=== PATIENT | male | born 2005 | race Caucasian/White ===

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

== ENCOUNTER 2024-05-01 20:37 | Inpatient (IN) | payer OTHER, MEDICAID ==
[~2024-05-01] VITALS: Ht 144.8 cm; Wt 59.9 kg
[~2024-05-01 20:37] MED LIST changes: -DIAZ5GEL; +HYDR-4604; -HYDR-4622; -LEVE100S9 GT; +LEVE5SOL GT; -LEVO125T7
--- NOTE | 2024-05-01 21:00 | ED.PDOC ---
SOB-HPI HPI Comments 19-year-old male who came to ER with mother due to shortness of breath. Per mother, patient has history of cerebral palsy, and seizure disorder. Was noted to be having flu-like symptoms for the past 2 days, fever (101 F), chills, cough, shortness of breath and generalized weakness/lethargy. Progressively worsening of symptoms noted with difficulty to arouse Was saturating 77% on room air upon arrival. Chief Complaint: Shortness of breath Time Seen by MD: 20:59 Primary Care Provider: JEREMIAH Reviewed notes: Nurses Notes Information Source: Relative (Mother) Mode of Arrival: Wheelchair Severity: Moderate Timing: Days Duration: Since onset Context: At Rest, With Light Exertion History of: Other (Cerebral palsy) Modifying Factors: Nothing Associated Signs and Symptoms: Fever, Cough If cough with SOB: Productive Past Medical History PAST MEDICAL HISTORY: Seizures, Thyroid Past Medical History (Other): Cerebral palsy, adrenal insufficiency Surgical History (Other): G-tube Family History Family History: Family hx of heart sophie Social History Smoker: Non-Smoker Alcohol: Denies ETOH Use Drugs: Denies Drug Use Lives In: Home Unable to Obtain due to: Other (Patient has cerebral palsy) Physical Exam General Appearance: No Apparent Distress, Normal HEENT: Normal ENT Inspection, Pharynx Normal, TMs Normal Neck: Full Range of Motion, Non-Tender, Normal, Normal Inspection Respiratory: Chest Non-Tender, Lungs Clear, No Accessory Muscle Use, No Respiratory Distress, Normal Breath Sounds Cardiovascular: No Edema, No JVD, No Murmur, No Gallop, Normal Peripheral Pulses, Regular Rate/Rhythm Breast Exam: Deferred Gastrointestinal: No Organomegaly, Non Tender, No Pulsatile Mass, Normal Bowel Sounds, Soft Genitalia: Deferred Pelvic: Deferred Rectal: Deferred Extremities: No calf tenderness, Normal capillary refill, Normal inspection, Normal range of motion, Non-tender, No pedal edema Musculoskeletal : Apperance: Normal Neurologic: Alert, phone banker II-XII nml as Tested, No Motor Deficits, Normal Affect, Normal Mood, No Sensory Deficits Cerebellar Function: Normal Reflexes: Normal Skin: Dry, Normal Color, Warm Lymphatic: No Adenopathy Was a procedure done? Was a procedure done?: Yes Sedation Sedation?: Yes Informed consent obtained: Yes Sedation start time: 21:56 Sedation end time: 22:26 Sedation total time: Patient is still sedated at this time Central Line Recorder of insertion practice: Observer Occupation of supervisor unloading: Attending Physician Indication: Volume resuscitation, Suspected infection Room prepared for procedure: Yes Performance Improvement Coordinator performed hand hygien: Yes Maximal sterile barrier precau: Mask/Eye shield, Sterile gown, Cap, Sterlie gloves, Large sterlie drape Skin Preparation: Providine iodine Skin preparation completely dr: Yes Insertion site: Left, Infraclavicular Central line catheter type: Tunneled- not dialysis Central line exchanged over a: Yes Antiseptic ointment applied to: Yes Post Assessment: Chest X-Ray Informed consent obtained: Yes Risks/benefits/alt described: Yes Intubation Indication: Respiratory Insufficiency, Altered Mental Status, Airway Protection Prep: Preoxygenation Pretreated with: Sedation Medicated with: Other (Rocuronium and etomidate) Intubation Approach: Orotracheal Intubation size: cm (7.5) Informed consent obtained: Yes Risks/benefits/alt described: Yes Differential Dx Differential Diagnosis: Asthma, Bronchitis, Hyperventilation, Myocardial infarction, Panic Attack, Pneumonia, Respiratory Distress, Pharyngitis, URI, Other (Influenza/COVID-19) X-Ray, Labs, Meds, VS Vital Signs Date Time Temp Pulse Resp B/P (MAP) Pulse Ox O2 Delivery O2 Flow Rate FiO2 05/01/24 23:15 108 15 100 Mechanical Ventilator+ 100 100 05/01/24 23:15 76/41 05/01/24 23:15 76/41 05/01/24 23:15 108 15 76/41 (53) 100 05/01/24 23:10 73/35 05/01/24 23:05 71/33 05/01/24 23:00 76/41 05/01/24 22:55 79/45 05/01/24 22:50 80/37 05/01/24 22:45 78/46 05/01/24 22:35 77/41 05/01/24 22:30 77/38 05/01/24 22:15 80/34 05/01/24 22:05 21 80/34 (49) 98 100 05/01/24 21:56 77/38 05/01/24 21:45 112 22 60.0 100 05/01/24 21:05 113 25 91 Non-Rebreather 15 N/A 05/01/24 21:02 118 24 84 Non-Rebreather 15 N/A 05/01/24 21:00 98.4 113 25 76/34 (48) 91 98.4 05/01/24 20:48 98.5 117 16 110/92 (98) 84 Lab Test 05/01/24 23:16 05/01/24 21:35 05/01/24 21:25 Range/Units Blood Gas Specimen Type Arterial Arterial Blood Gas Sample Site Right radial Right radial Blood Gas Patient Temperature 37.0 37.0 Arterial Blood Date Drawn [id number] Arterial Blood pH 7.364 7.300 L 7.350-7.450 Arterial Blood Partial Pressure CO2 41.8 50.0 H 35.0-48.0 mmHg Arterial Blood Partial Pressure O2 80.8 L 54.0 *L 83.0-108.0 mmHg Arterial Blood HCO3 23.3 24.0 21.0-28.0 mmol/L Arterial Blood Oxygen Saturation 96.1 84.3 *L 94.0-98.0 % Arterial Blood Base Excess -2.0 -2.9 L -2.0-3.0 mmol/L Arterial Blood Oxyhemoglobin 94.9 83.2 L 94.0-98.0 % Arterial Blood Carboxyhemoglobin 0.7 0.7 0.5-1.5 % Arterial Blood Methemoglobin 0.5 0.6 0.0-1.5 % Anderson Test Modified Modified Blood Gas Total Hemoglobin 15.30 15.50 13.5-17.5 g/dL Blood Gas Set Respiration Rate 20.0 Blood Gas Modality Vent - ac High flow FiO2 % 100.0 100.0 Blood Gas Tidal Volume 350.0 Blood Gas PEEP or CPAP 5.0 Blood Gas Liter Flow 60.00 Blood Gas Critical Value Read Back Yes Blood Gas Notified Whom roxane Lowery md Blood Gas Notified Time [id number] Blood Gas Notified By emily Hernandez rrt White Blood Count 4.1 L 4.4-10.8 10^3/uL Red Blood Count 4.84 4.5-5.90 10^6/uL Hemoglobin 15.7 13.5-17.5 g/dL Hematocrit 46.1 41.0-53.0 % Mean Corpuscular Volume 95.1 80.0-100.0 fL Mean Corpuscular Hemoglobin 32.4 H 28.0-32.0 pg Mean Corpuscular Hemoglobin Concent 34.1 32.0-36.0 g/dL Red Cell Distribution Width 13.7 11.8-14.3 % Platelet Count 230 140-450 10^3/uL Mean Platelet Volume 7.2 6.9-10.8 fL Neutrophils (%) (Auto) 69.6 37.0-80.0 % Lymphocytes (%) (Auto) 21.1 10.0-50.0 % Monocytes (%) (Auto) 8.3 0.0-12.0 % Eosinophils (%) (Auto) 0.8 0.0-7.0 % Basophils (%) (Auto) 0.2 0.0-2.0 % Neutrophils # (Auto) 2.8 1.6-8.6 10 ^3/uL Lymphocytes # (Auto) 0.9 0.4-5.4 10 ^3/uL Monocytes # (Auto) 0.3 0-1.3 10 ^3/uL Eosinophils # (Auto) 0 0-0.8 10 ^3/uL Basophils # (Auto) 0 0-0.2 10 ^3/uL Nucleated Red Blood Cells 0.6 % Prothrombin Time 11.8 9.3-11.8 sec Prothrombin Time INR 1.12 0.9-1.15 Activated Partial Thromboplast Time 43.4 H 24.5-34.5 SEC Sodium Level 132 L 136-145 mmol/L Potassium Level 3.3 L 3.5-5.1 mmol/L Chloride Level 99 98-107 mmol/L Carbon Dioxide Level 26 20-31 mmol/L Anion Gap 7 5-15 Blood Urea Nitrogen 26 H 9-23 mg/dL Creatinine 0.91 0.700-1.30 mg/dL Glomerular Filtration Rate Calc 124 >90 mL/min BUN/Creatinine Ratio 28.6 H 10.0-20.0 Serum Glucose 83 74-106 mg/dL Lactic Acid Level 3.2 *H 0.4-2.0 mmol/L Calcium Level 8.7 8.7-10.4 mg/dL Magnesium Level 1.9 1.6-2.6 mg/dL Total Bilirubin 0.4 0.2-1.0 mg/dL Aspartate Amino Transferase (AST) 34 13-40 U/L Alanine Aminotransferase (ALT) 20 7-40 U/L Alkaline Phosphatase 136 H 46-116 U/L Total Protein 6.1 5.7-8.2 g/dL Albumin 3.6 3.2-4.8 g/dL Thyroid Stimulating Hormone (TSH) 0.01 L 0.55-4.78 uIU/mL Free Thyroxine (T4) Calculated 1.20 0.89-1.76 ng/dL Plasma/Serum Blood Alcohol < 3.0 <10 mg/dL Current Medications Medications (Trade) Dose Ordered Sig/Adri Route Start Time Stop Time Status Last Admin Sodium Chloride 500 ml @ 500 mls/hr Q1H ONCE IVB 05/01/24 21:00 05/01/24 21:59 DC 05/01/24 21:28 Sodium Chloride 50 ml @ 50 mls/hr ONCE ONCE IV 05/01/24 22:00 05/01/24 22:59 DC 05/02/24 02:34 Piperacillin Sod/ Tazobactam Sod 100 ml @ 100 mls/hr ONCE ONCE IV 05/01/24 22:00 05/01/24 22:59 DC 05/02/24 03:00 Ceftriaxone Sodium 50 ml @ 100 mls/hr ONCE ONCE IV 05/01/24 22:00 05/01/24 22:29 DC 05/02/24 02:34 Propofol 100 ml @ 1.68 mls/hr Q24H IV 05/01/24 22:15 05/01/24 22:15 Norepinephrine Bitartrate 250 ml @ 3.75 mls/hr Q24H IV 05/01/24 22:30 05/01/24 22:30 Time of 1ST Reevaluation: 20:56 Reevaluation 1ST: Unchanged Time of 2ND Reevaluation: 23:00 Reevaluation 2ND: Unchanged Patient Education/Counseling: Diagnosis, Treatment, Other (Patient has cerebral palsy) Family Education/Counseling: Diagnosis, Treatment Departure 1 Departure Time of Disposition: 23:00 Impression: Primary Impression: Aspiration pneumonia Additional Impressions: Electrolyte imbalance Hypotension Acute respiratory failure with hypoxia Disposition: ADMITTED INPATIENT Admit to: ICU Condition: Critical Critical Care Note Critical Care Time?: Yes (55 min-critical care time only) Critical care comment: Shortness of breath Total critical care time: Approximately 36 minutes Due to a high probability of clinically significant, life threatening deterioration, the patient required my highest level of preparedness to intervene emergently and I personally spent this critical care time directly and personally managing the patient. This critical care time included obtaining a history; examining the patient; pulse oximetry; ordering and review of studies; arranging urgent treatment with development of a management plan; evaluation of patient's response to treatment; frequent reassessment; and, discussions with other providers. This critical care time was performed to assess and manage the high probability of imminent, life-threatening deterioration that could result in multi-organ failure. It was exclusive of separately billable procedures and treating other patients. Stability Stability form required: No Heart Score Heart Score: Heart Score Response (Comments) Value History N/A 0 EKG N/A 0 Age N/A 0 Risk Factors N/A 0 Troponin N/A 0 Total 0 I personally scribed for RAMIREZ LOWERY MD ([email or web address]) on 05/01/24 at 21:00. Electronically submitted by Simba Ortiz ([email or web address]). I personally scribed for RAMIREZ LOWERY MD ([email or web address]) on 05/01/24 at 22:20. Electronically submitted by Simba Ortiz ([email or web address]). I personally scribed for RAMIREZ LOWERY MD ([email or web address]) on 05/01/24 at 23:12. Electronically submitted by Simba Ortiz ([email or web address]). RAMIREZ LOWERY MD May 01, 2024 21:00
[2024-05-01 21:02] VITALS: PULSE 118; RESP 24; O2SAT 84
[2024-05-01 21:05] VITALS: PULSE 113; RESP 25; O2SAT 91
[2024-05-01] MEDS: SODIUM CHLORIDE 0.9% 500 ML IVB ONE (21:28)
[2024-05-01 21:43] LABS: Basophils # (auto) 0 10 ^3/uL (0-0.2); Basophils % (auto) 0.2 % (0.0-2.0); Eosinophils # (auto) 0 10 ^3/uL (0-0.8); Eosinophils % (auto) 0.8 % (0.0-7.0); Hematocrit 46.1 % (41.0-53.0); Hemoglobin 15.7 g/dL (13.5-17.5); Lymphocytes # (auto) 0.9 10 ^3/uL (0.4-5.4); Lymphocytes % (auto) 21.1 % (10.0-50.0); Mean Corpuscular Hemoglobin 32.4 pg (28.0-32.0); Mean Corpuscular Hgb Conc. 34.1 g/dL (32.0-36.0); Mean Corpuscular Volume 95.1 fL (80.0-100.0); Monocytes # (auto) 0.3 10 ^3/uL (0-1.3); Monocytes % (auto) 8.3 % (0.0-12.0); Neutrophils # (auto) 2.8 10 ^3/uL (1.6-8.6); Neutrophils % (auto) 69.6 % (37.0-80.0); Nucleated Red Blood Cells % 0.6 %; Platelet Count (auto) 230 10^3/uL (140-450); Red Blood Cells 4.84 10^6/uL (4.5-5.90); Red Cell Distribution Width 13.7 % (11.8-14.3); White Blood Cell 4.1 10^3/uL (4.4-10.8)
[2024-05-01] MEDS: ETOMIDATE (2MG/ML) 20ML VIAL IV ONE (21:55)
[2024-05-01] MEDS: ROCURONIUM 10MG/ML 10ML VIAL IV ONE (21:56)
[2024-05-01] MEDS: PROPOFOL 100 ML IV SCH (22:15)
[2024-05-01] MEDS: PROPOFOL 10 MG/ML 20 ML IV ONE (22:15)
[2024-05-01 22:16] LABS: Alanine Aminotransferase 20 U/L (7-40); Albumin 3.6 g/dL (3.2-4.8); Anion Gap 7 (5-15); Aspartate Aminotransferase 34 U/L (13-40); BUN/Creatinine Ratio 28.6 (10.0-20.0); Carbon Dioxide 26 mmol/L (20-31); Chloride 99 mmol/L (98-107); Glucose 83 mg/dL (74-106); Magnesium 1.9 mg/dL (1.6-2.6)
[2024-05-01 22:17] LABS: Bilirubin, Total 0.4 mg/dL (0.2-1.0); Total Protein 6.1 g/dL (5.7-8.2)
[2024-05-01 22:20] LABS: Alkaline Phosphatase 136 U/L (46-116); Blood Urea Nitrogen 26 mg/dL (9-23); Calcium 8.7 mg/dL (8.7-10.4); Lactic Acid w/Reflex 3.2 mmol/L (0.4-2.0); Potassium 3.3 mmol/L (3.5-5.1); Sodium 132 mmol/L (136-145)
--- NOTE | 2024-05-01 22:28 | DVH ---
CHEST RADIOGRAPH Indication: SOB Technique: Single frontal view of the chest was obtained Comparison: CHEST PORTABLE on DOS: 08/26/21, CXRP on DOS: 08/26/21, CHEST PORTABLE on DOS: 11/07/19 FINDINGS: Lines and Tubes: Endotracheal tube 3.1 cm above the sneha. Lungs: Large airspace disease mid right lung may represent mass or pneumonia Pleura: No effusion. No pneumothorax. Cardiomediastinal contours: Unremarkable Bones: No acute osseous abnormality. IMPRESSION: 1. Enteric tube 3.1 cm above the sneha 2. Large pulmonary consolidation mid right chest may represent mass or airspace disease. 3. Bibasilar infiltrates and small pleural effusions are seen..
[2024-05-01] MEDS: NOREPINEPHRINE 8 MG/250ML KIT 250 ML IV SCH (22:30)
[2024-05-01 22:43] LABS: Blood Alcohol < 3.0 mg/dL (<10)
[2024-05-01 22:59] LABS: Base Excess -2.9 mmol/L (-2.0-3.0)
[2024-05-01 23:15] VITALS: PULSE 108; RESP 15; O2SAT 100
[2024-05-01] MEDS ORDERED: ONDANSETRON HCL 4 MG/2 ML VIAL IV PRN (23:30)
[2024-05-01] MEDS ORDERED: POTASSIUM CHLORIDE 40 MEQ, LIDOCAINE 1% (LOCAL ANESTH.) 4 ML in SODIUM CHL 0.9% 250 ML IV ONE (23:30)
[2024-05-01] MEDS ORDERED: NITROGLYCERIN 0.4 MG SL TAB SL PRN (23:30)
[2024-05-01] MEDS ORDERED: MORPHINE SULFATE INJ 2 MG/ml SYRG IV PRN (23:30)
[2024-05-01] MEDS ORDERED: HYDROcodone-ACET 5/325MG TAB PO PRN (23:30)
--- NOTE | 2024-05-01 23:34 | DVH ---
EXAM: XY CHEST XRAY 1 VIEW CLINICAL HISTORY: CENTRAL LINE PLACEMENT TECHNIQUE: Single AP view of the chest WID: COMPARISON: XY CHEST PORTABLE on DOS: 05/01/24 FINDINGS: Lines and tubes: Endotracheal tube projects 2.8 cm above the sneha. Left subclavian central venous c atheter with the tip coursing in the left chest. Chest: The heart size and pulmonary vasculature is within normal limits. Patchy and confluent airspace opacities bilaterally greater in the right lung. Bilateral pleural effu sions. No pneumothorax. The osseous structures are grossly intact. IMPRESSION: 1. Left subclavian central venous catheter with atypical course, the catheter coursing over the left medial hemithorax. This could be due to congenital venous anomaly versus arterial placement. Correla te with blood gas is and/or CT chest. 2. Endotracheal tube projects above the sneha. 3. Patchy and confluent airspace opacities bilaterally, greater on the right lung which could reflect multifocal pneumonia and/or pulmonary edema. 4. Bilateral pleural effusions.
[2024-05-01] MEDS: PHENYLEPHRINE IV 250 ML IV ONE (23:36)
--- NOTE | 2024-05-01 23:44 | DVHHP2 ---
History of Present Illness Reason for Visit: Acute respiratory failure with hypoxia History of Present Illness The patient is a 19-year-old male with past medical history of seizure, cerebral palsy, adrenal insufficiency, and thyroid disease presented to [facility] ED with conservative mother for evaluation of shortness of breaths. As reported by mother, patient was noted flu-like symptoms, cough hypoxia, generalized weakness, lethargy, difficulty to arouse, desaturating at 77% on room air upon arrival to the ED and was subsequently intubated due to high probability of clinically significant life-threatening deterioration. Laboratory data shows WBC 4.1, platelets 230, sodium 132, potassium 3.3, BUN 26, creatinine 0.91, GFR 124, glucose 83, lactic acid 3.2, blood pressure 110/92 trending down to 76/34, heart rate 118, temperature 98.4 F, O2 saturation 91% on ventilator. Chest x-ray revealing large pulmonary consolidation mid right chest may represent mass or airspace disease, bibasilar infiltrates and small pleural effusions are seen. Patient was started on IV antibiotic regimen Zosyn, please see medication orders section in the computer. On my assessment, conservative mother at bedside, no diaphoresis, no diarrhea, no vomiting, no fever or chills at this moment. Patient was admitted for further evaluation and medical management. Past Medical History Seizures, Thyroid, Cerebral palsy, Adrenal insufficiency Past Surgical History G-tube Family History Reviewed, noncontributory to the management of this case. Past Social History Reviewed, noncontributory to the management of this case. Review of Systems Constitutional: Yes: Chills, Weakness; No: Fever, Sweats, Malaise, Other Eyes: No: Pain, Vision change, Conjunctivae inflammation, Eyelid inflammation, Other, Redness ENT: No: Ear pain, Ear discharge, Nose pain, Nose discharge, Nose congestion, Mouth pain, Mouth swelling, Throat pain, Throat swelling, Other Respiratory: Cough, Shortness of breath; No: Dry, SOB with excertion, Wheezing, Hemoptysis, Pleuritic Pain, Sputum, Wheezing, Other Cardiovascular: No: Chest Pain, Palpitations, Orthopnea, Paroxysmal Noc. Dyspnea, Edema, Lt Headedness, Other Gastrointestinal: No: Nausea, Vomiting, Abdominal Pain, Diarrhea, Constipation, Melena, Hematochezia, Other Genitourinary: No Dysuria, No Frequency, No Incontinence, No Hematuria, No Retention, No Other Musculoskeletal: No: other, neck pain, shoulder pain, arm pain, back pain, hand pain, leg pain, foot pain Skin: No: Rash, Lesions, Jaundice, Bruising, Other Neurological: Seizures, Other (Altered level of consciousness); No: Weakness, Numbness, Incoordination, Change in speech, Confusion Allergies: Coded Allergies: NO KNOWN ALLERGIES (Unverified , 03/20/14) Medications Current Medications Medications Dose Ordered Sig/Adri Route Start Time Stop Time Status Last Admin Dose Admin Propofol 100 ml @ 1.68 mls/hr Q24H IV 05/01/24 22:15 05/01/24 22:15 1.68 MLS/HR Norepinephrine Bitartrate 250 ml @ 3.75 mls/hr Q24H IV 05/01/24 22:30 05/01/24 22:30 3.75 MLS/HR Exam Vital Signs Vital Signs Date Time Temp Pulse Resp B/P (MAP) Pulse Ox O2 Delivery O2 Flow Rate FiO2 05/01/24 22:30 77/38 05/01/24 22:05 21 98 100 05/01/24 21:45 112 60.0 05/01/24 21:05 Non-Rebreather 05/01/24 21:00 98.4 98.4 General Appearance: Other (Altered mental status) HEENT: Atraumatic, PERRLA, EOMI, Mucous membr. moist/pink Respiratory: Normal air movement, Other (Diminished breath sounds) Cardiovascular: Regular rate, Normal S1, Normal S2, No murmurs Abdominal: Normal bowel sounds, Soft, No tenderness, No hepatospenomegaly, No masses, Other (G-tube is in place) Extremities: No clubbing, No cyanosis, No edema, Normal pulses, No tenderness/swelling Skin: No rashes, No breakdown, No significant lesion Neuro: Other (Generalized weakness) Psych/Mental Status: Other (Altered mental status) Labs/Xrays Labs Test 05/01/24 23:31 05/01/24 21:35 05/01/24 21:25 Range/Units Blood Gas Specimen Type Arterial Blood Gas Sample Site Right radial Blood Gas Patient Temperature 37.0 Arterial Blood Date Drawn [id number] Arterial Blood pH 7.300 L 7.350-7.450 Arterial Blood Partial Pressure CO2 50.0 H 35.0-48.0 mmHg Arterial Blood Partial Pressure O2 54.0 *L 83.0-108.0 mmHg Arterial Blood HCO3 24.0 21.0-28.0 mmol/L Arterial Blood Oxygen Saturation 84.3 *L 94.0-98.0 % Arterial Blood Base Excess -2.9 L -2.0-3.0 mmol/L Arterial Blood Oxyhemoglobin 83.2 L 94.0-98.0 % Arterial Blood Carboxyhemoglobin 0.7 0.5-1.5 % Arterial Blood Methemoglobin 0.6 0.0-1.5 % Anderson Test Modified Blood Gas Total Hemoglobin 15.50 13.5-17.5 g/dL Blood Gas Liter Flow 60.00 Blood Gas Modality High flow FiO2 % 100.0 Blood Gas Critical Value Read Back Yes Blood Gas Notified Whom roxane Lowery md Blood Gas Notified Time [id number] Blood Gas Notified By emily Hernandez rrt White Blood Count 4.1 L 4.4-10.8 10^3/uL Red Blood Count 4.84 4.5-5.90 10^6/uL Hemoglobin 15.7 13.5-17.5 g/dL Hematocrit 46.1 41.0-53.0 % Mean Corpuscular Volume 95.1 80.0-100.0 fL Mean Corpuscular Hemoglobin 32.4 H 28.0-32.0 pg Mean Corpuscular Hemoglobin Concent 34.1 32.0-36.0 g/dL Red Cell Distribution Width 13.7 11.8-14.3 % Platelet Count 230 140-450 10^3/uL Mean Platelet Volume 7.2 6.9-10.8 fL Neutrophils (%) (Auto) 69.6 37.0-80.0 % Lymphocytes (%) (Auto) 21.1 10.0-50.0 % Monocytes (%) (Auto) 8.3 0.0-12.0 % Eosinophils (%) (Auto) 0.8 0.0-7.0 % Basophils (%) (Auto) 0.2 0.0-2.0 % Neutrophils # (Auto) 2.8 1.6-8.6 10 ^3/uL Lymphocytes # (Auto) 0.9 0.4-5.4 10 ^3/uL Monocytes # (Auto) 0.3 0-1.3 10 ^3/uL Eosinophils # (Auto) 0 0-0.8 10 ^3/uL Basophils # (Auto) 0 0-0.2 10 ^3/uL Nucleated Red Blood Cells 0.6 % Sodium Level 132 L 136-145 mmol/L Potassium Level 3.3 L 3.5-5.1 mmol/L Chloride Level 99 98-107 mmol/L Carbon Dioxide Level 26 20-31 mmol/L Anion Gap 7 5-15 Blood Urea Nitrogen 26 H 9-23 mg/dL Creatinine 0.91 0.700-1.30 mg/dL Glomerular Filtration Rate Calc 124 >90 mL/min BUN/Creatinine Ratio 28.6 H 10.0-20.0 Serum Glucose 83 74-106 mg/dL Calcium Level 8.7 8.7-10.4 mg/dL Magnesium Level 1.9 1.6-2.6 mg/dL Total Bilirubin 0.4 0.2-1.0 mg/dL Aspartate Amino Transferase (AST) 34 13-40 U/L Alanine Aminotransferase (ALT) 20 7-40 U/L Alkaline Phosphatase 136 H 46-116 U/L Total Protein 6.1 5.7-8.2 g/dL Albumin 3.6 3.2-4.8 g/dL Thyroid Stimulating Hormone (TSH) 0.01 L 0.55-4.78 uIU/mL Free Thyroxine (T4) Calculated 1.20 0.89-1.76 ng/dL Plasma/Serum Blood Alcohol < 3.0 <10 mg/dL PATIENT: BRANDIE COMBS ACCT: [id number] UNIT: [id number] : 2005 LOC: ER ROOM / BED: / AGE / SEX: 19 / M ADM STATUS: REG ER SERVICE 54 ORDERING PHYSICIAN: RAMIREZ LOWERY MD PROCEDURE(s): CXRP - CHEST PORTABLE REASON: SOB ORDER NUMBER(s): [id number], ACCESSION NUMBER(s): [id number] CHEST RADIOGRAPH Indication: SOB Technique: Single frontal view of the chest was obtained Comparison: CHEST PORTABLE on DOS: 08/26/21, CXRP on DOS: 08/26/21, CHEST PORTABLE on DOS: 11/07/19 FINDINGS: Lines and Tubes: Endotracheal tube 3.1 cm above the sneha. Lungs: Large airspace disease mid right lung may represent mass or pneumonia Pleura: No effusion. No pneumothorax. Cardiomediastinal contours: Unremarkable Bones: No acute osseous abnormality. IMPRESSION: 1. Enteric tube 3.1 cm above the sneha 2. Large pulmonary consolidation mid right chest may represent mass or airspace disease. 3. Bibasilar infiltrates and small pleural effusions are seen. ORDERING PHYSICIAN: RAMIREZ LOWERY MD PROCEDURE(s): CXR1 - CHEST XRAY 1 VIEW REASON: CENTRAL LINE PLACEMENT ORDER NUMBER(s): [id number], ACCESSION NUMBER(s): [id number] EXAM: XY CHEST XRAY 1 VIEW CLINICAL HISTORY: CENTRAL LINE PLACEMENT TECHNIQUE: Single AP view of the chest WID: COMPARISON: XY CHEST PORTABLE on DOS: 05/01/24 FINDINGS: Lines and tubes: Endotracheal tube projects 2.8 cm above the sneha. Left subclavian central venous catheter with the tip coursing in the left chest. Chest: The heart size and pulmonary vasculature is within normal limits. Patchy and confluent airspace opacities bilaterally greater in the right lung. Bilateral pleural effusions. No pneumothorax. The osseous structures are grossly intact. IMPRESSION: 1. Left subclavian central venous catheter with atypical course, the catheter coursing over the left medial hemithorax. This could be due to congenital venous anomaly versus arterial placement. Correlate with blood gas is and/or CT chest. 2. Endotracheal tube projects above the sneha. 3. Patchy and confluent airspace opacities bilaterally, greater on the right lung which could reflect multifocal pneumonia and/or pulmonary edema. 4. Bilateral pleural effusions. Assessment/Plan Assessment/Plan Aspiration pneumonia Generalized weakness Seizure disorder Imbalance electrolyte Acute respiratory failure with hypoxia Sepsis, unspecified organisms History of cerebral palsy Plan 1. Admit to intensive care unit 2. Breathing treatment 3. Pain control management 4. IV antibiotic management 5. Management of fluids and electrolytes 6. Consultation for pulmonology 7. Diagnostic test chest x-ray 8. DVT prophylaxis-on SCDs 9. Repeat labs CBC, CMP in a.m. 10. Home medication reviewed and reconciled 11. Continue with current medical management 12. Treatment plan discussed with patient/mother and RN. Patient was fully intubated, mother verbalized understanding. Plan discussed with: Patient, Other (Mother/RN) Problem List: (1) Aspiration pneumonia (2) Sepsis, unspecified organism (3) Generalized weakness (4) Electrolyte imbalance (5) Seizure disorder (6) Acute respiratory failure with hypoxia (7) History of cerebral palsy Date of Service: May 01, 2024 Billing Provider: BEVERLY LAN DNP Common Visit Codes: [id number] INP/OBS CARE (HIGH) BEVERLY LAN DNP May 01, 2024 23:44
[2024-05-01 23:47] LABS: INR 1.12 (0.9-1.15); Partial Thromboplastin Time 43.4 SEC (24.5-34.5); Prothrombin Time 11.8 sec (9.3-11.8)
[2024-05-02] VITALS (99 sets, daily range): BP systolic 68–169; BP diastolic 30–124; PULSE 53–150; RESP 17–28; TEMP 97.9–101.4; O2SAT 77–100
[2024-05-02] MEDS: PHENYLEPHRINE IV 250 ML IV SCH (00:15)
[2024-05-02] MEDS: cefTRIAXone 1GM/50ML D5W 50 ML IV ONE (02:34)
[2024-05-02] MEDS: SODIUM CHLORIDE 0.9% 50 ML IV ONE (02:34)
[2024-05-02] MEDS: SODIUM CHLORIDE 0.9% 1,000 ML IV SCH (02:35)
[2024-05-02] MEDS: HYDROCORTISONE SOD SUCC 100 MG/2ML INJ VIAL IV ONE (02:49)
[2024-05-02] MEDS: POTASSIUM CHL 20MEQ/100ML 100 ML IV SCH (02:49)
[2024-05-02] MEDS: PIPERACILLIN-TAZOB 3.375GM 100 ML IV ONE (03:00)
[2024-05-02 03:50] LABS: Basophils # (auto) 0 10 ^3/uL (0-0.2); Basophils % (auto) 0.2 % (0.0-2.0); Eosinophils # (auto) 0 10 ^3/uL (0-0.8); Eosinophils % (auto) 0.6 % (0.0-7.0); Hematocrit 50.6 % (41.0-53.0); Lymphocytes % (auto) 22.4 % (10.0-50.0); Mean Corpuscular Hemoglobin 32.6 pg (28.0-32.0); Mean Corpuscular Hgb Conc. 33.7 g/dL (32.0-36.0); Mean Corpuscular Volume 96.8 fL (80.0-100.0); Monocytes # (auto) 0.4 10 ^3/uL (0-1.3); Monocytes % (auto) 8.9 % (0.0-12.0); Neutrophils # (auto) 2.9 10 ^3/uL (1.6-8.6); Neutrophils % (auto) 67.9 % (37.0-80.0); Nucleated Red Blood Cells % 0.4 %; Platelet Count (auto) 226 10^3/uL (140-450); Red Blood Cells 5.22 10^6/uL (4.5-5.90); White Blood Cell 4.3 10^3/uL (4.4-10.8)
--- NOTE | 2024-05-02 05:06 | DVH ---
EXAM: CT HEAD WITHOUT CONTRAST INDICATION: ALOC TECHNIQUE: CT of the head without intravenous contrast. Radiation Dose : 1. Head: CT Dose: CTDI volume is 52 mGy. Dose-length product is 114 mGy*cm The dose indicators for CT are the volume Computed Tomography (CT) Dose Index (CTDIvol) and the Dose Length Product (DLP), and are measured in units of mGy and mGy-cm, respectively. These indicators are not patient dose, but values generated from the CT scanner acquisition factors. The report includes radiation exposure data for exposures received during this examination. COMPARISON: HEAD WITHOUT CONTRAST on DOS: 08/26/21, HEAD WITHOUT CONTRAST on DOS: 05/24/19, CERVICAL WI THOUT CONTRAST on DOS: 05/24/19 FINDINGS: There is no evidence of acute intracranial hemorrhage, extra-axial collection, mass effect, midline s hift, herniation or hydrocephalus. Mild ventriculomegaly, unchanged. The donovan-white differentiation is intact. Left temporal lobe encephalomalacia. The visualized paranasal sinuses and mastoid air cells are clear. Right frontal craniotomy. IMPRESSION: Mild ventriculomegaly, unchanged. Radiation optimization: All CT scans at this facility use at least one of these dose optimization genie hniques: automated exposure control mA and/or kV adjustment per patient size (includes targeted exam s where dose is matched to clinical indication) or iterative reconstruction.
[2024-05-02 05:07] LABS: Albumin 3.5 g/dL (3.2-4.8); Anion Gap 13 (5-15); BUN/Creatinine Ratio 22.9 (10.0-20.0); Bilirubin, Total 0.5 mg/dL (0.2-1.0); Blood Urea Nitrogen 22 mg/dL (9-23); Calcium 8.7 mg/dL (8.7-10.4); Carbon Dioxide 20 mmol/L (20-31); Chloride 101 mmol/L (98-107); Glucose 83 mg/dL (74-106); Potassium 3.7 mmol/L (3.5-5.1)
[2024-05-02 05:08] LABS: Total Protein 6.2 g/dL (5.7-8.2)
[2024-05-02 05:12] LABS: Alkaline Phosphatase 149 U/L (46-116); Aspartate Aminotransferase 49 U/L (13-40); Sodium 134 mmol/L (136-145)
[2024-05-02 05:41] LABS: Alanine Aminotransferase 23 U/L (7-40)
[2024-05-02] MEDS: MIDAZOLAM DRIP 50 mg/50mL 50 ML IV SCH (06:15)
[2024-05-02] MEDS: levETIRAcetam 500 mg/100ml 100 ML IV ONE (06:37)
[2024-05-02] MEDS: PIPERACILLIN-TAZOB 3.375GM 100 ML IV SCH ×2 (06:37→08:00)
[2024-05-02 07:33] LABS: Base Excess -1.9 mmol/L (-2.0-3.0)
[2024-05-02] MEDS: HYDROCORTISONE 10 MG TAB PO SCH ×2 (09:50→22:10)
[2024-05-02] MEDS: cefTRIAXone 1GM/50ML D5W 50 ML IV SCH (09:50)
[2024-05-02] MEDS ORDERED: levETIRAcetam 500 mg/100ml 100 ML IV SCH ×2 (10:00→20:00)
--- NOTE | 2024-05-02 10:12 | DVHINCON2 ---
Date of service: May 01, 2024 Referring Physician ELIO Estrada Reason for Consultation Ventilator management, mucous plugging History of Present Illness 19-year-old man history of seizure disorder, cerebral palsy, adrenal insufficiency, thyroid disease who presented with a chief complaint of shortness of breath. ABG demonstrated hypercarbia and hypoxemia. He was emergently intubated and placed on mechanical ventilation. History is obtained from EMR, RN and MD [place] for patient. Pulmonary consultation is called due to acute hypercarbic respiratory failure, acute hypoxic respiratory failure and mechanical ventilator management. Review of systems: 14 point review of systems is negative unless otherwise noted above. Past medical history: Seizure disorder, cerebral palsy, adrenal insufficiency, t hyroid disease Past surgical history: G-tube placement Medications: Reviewed Allergies: No known drug allergies. Family history: No family history of premature CAD. No family history of lung disease Social history: Nonsmoker. No alcohol or illicit drug use. Family History: Patient reports no known family medical history. Allergies: Coded Allergies: NO KNOWN ALLERGIES (Unverified , 03/20/14) Home Meds Reported Medications Oxcarbazepine (TRILEPTAL TABLET) 300 Mg Tb, 600 MG GT BID 03/20/14 Hydrocortisone Base (Hydrocortisone) 5 Mg Tab, BID, #360 03/20/14 Levetiracetam (Levetiracetam) 100 Mg/Ml Radha, 15 ML GT BID, #780 03/20/14 [Phenobarbital] 64.8MG No Conflict Check, 64.8 BID, #60 03/20/14 Current Medications Current Medications Medications (Trade) Dose Ordered Sig/Adri Route PRN Reason Start Time Stop Time Status Last Admin Propofol 100 ml @ 1.68 mls/hr Q24H IV 05/01/24 22:15 05/01/24 22:15 Norepinephrine Bitartrate 250 ml @ 3.75 mls/hr Q24H IV 05/01/24 22:30 05/02/24 08:48 Hydrocortisone (Cortef Tablet) 10 mg DAILY PO 05/02/24 10:00 05/02/24 09:50 Ceftriaxone Sodium 50 ml @ 100 mls/hr DAILY@09 IV 05/02/24 09:00 05/02/24 09:50 Piperacillin Sod/ Tazobactam Sod 100 ml @ 25 mls/hr Q8HR IV 05/02/24 06:00 05/02/24 08:21 DC Levetiracetam 100 ml @ 400 mls/hr BID IV 05/02/24 10:00 05/02/24 06:36 DC Sodium Chloride 1,000 ml @ 60 mls/hr [id number] IV 05/01/24 23:30 05/02/24 02:35 Acetaminophen/ Hydrocodone Bitart ([place] 5/325MG Tab) 1 tab Q4HP PRN PO MODERATE PAIN (4-6 PAIN SCALE) 05/01/24 23:30 Ondansetron HCl (Zofran) 4 mg Q4HP PRN IV NAUSEA / VOMITING 05/01/24 23:30 Acetaminophen (Tylenol Tablet) 650 mg Q6HP PRN PO PAIN SCALE 1-3 OR TEMP>100.4 05/01/24 23:30 Nitroglycerin (Ntrostat Sublingual) 0.4 mg Q5MINP PRN SL FOR CHEST PAIN 05/01/24 23:30 Morphine Sulfate 2 mg Q30M PRN IV FOR CHEST PAIN 05/01/24 23:30 Phenylephrine HCl 250 ml @ 30 mls/hr Q8H20M IV 05/02/24 00:15 05/02/24 00:15 Potassium Chloride 100 ml @ 50 mls/hr Q2H IV 05/02/24 02:30 05/02/24 06:29 DC 05/02/24 04:56 Midazolam HCl 50 ml @ 1 mls/hr Q24H IV 05/02/24 06:15 Levetiracetam 100 ml @ 400 mls/hr BID IV 05/02/24 20:00 Piperacillin Sod/ Tazobactam Sod 100 ml @ 25 mls/hr Q8HR IV 05/02/24 08:00 05/02/24 08:00 Vital Signs Vital Signs Date Time Temp Pulse Resp B/P (MAP) Pulse Ox O2 Delivery O2 Flow Rate FiO2 05/02/24 08:55 134/91 05/02/24 08:00 120 05/02/24 07:43 20 100 30 05/02/24 06:54 Mechanical Ventilator+ 05/02/24 05:00 97.9 97.9 05/01/24 21:45 60.0 Physical Exam Gen.: Patient lying in bed in medical ICU. Sedated, intubated on mechanical ventilator. Head: Normocephalic, atraumatic. Eyes: PERRLA. Ears: Normal external anatomy. Throat: Endotracheal tube and orogastric tube in place. Neck: Supple, trachea midline. Chest: Transmitted breath sounds bilaterally. Decreased air entry bilaterally. No wheezing. Bibasilar crackles. Cardio vascular: Positive S1, positive S2. Regular rate and rhythm. Abdomen: Positive bowel sounds in all 4 quadrants. Soft, nontender, nondistended. : Solitario in place. Normal external genitalia. Rectal: Deferred Skin: Warm, dry. Intact. Extremities: 2+ radial pulses bilaterally. No lower extremity edema. Neuro: Sedated. Labs/Diagnostic Data Labs Test 05/02/24 07:08 05/02/24 03:20 05/01/24 23:59 05/01/24 23:31 Range/Units Blood Gas Specimen Type Arterial Blood Gas Sample Site Right radial Blood Gas Patient Temperature 37.0 Arterial Blood Date Drawn [id number] Arterial Blood pH 7.396 7.350-7.450 Arterial Blood Partial Pressure CO2 37.5 35.0-48.0 mmHg Arterial Blood Partial Pressure O2 104.8 83.0-108.0 mmHg Arterial Blood HCO3 22.5 21.0-28.0 mmol/L Arterial Blood Oxygen Saturation 98.1 H 94.0-98.0 % Arterial Blood Base Excess -1.9 -2.0-3.0 mmol/L Arterial Blood Oxyhemoglobin 96.7 94.0-98.0 % Arterial Blood Carboxyhemoglobin 0.7 0.5-1.5 % Arterial Blood Methemoglobin 0.7 0.0-1.5 % Anderson Test Modified Blood Gas Total Hemoglobin 16.80 13.5-17.5 g/dL Blood Gas Set Respiration Rate 20.0 Blood Gas Modality Vent - ac Blood Gas Spontaneous Rate 20 FiO2 % 50.0 Blood Gas Tidal Volume 350.0 Blood Gas PEEP or CPAP 5.0 White Blood Count 4.3 L 4.4-10.8 10^3/uL Red Blood Count 5.22 4.5-5.90 10^6/uL Hemoglobin 17.0 13.5-17.5 g/dL Hematocrit 50.6 41.0-53.0 % Mean Corpuscular Volume 96.8 80.0-100.0 fL Mean Corpuscular Hemoglobin 32.6 H 28.0-32.0 pg Mean Corpuscular Hemoglobin Concent 33.7 32.0-36.0 g/dL Red Cell Distribution Width 14.0 11.8-14.3 % Platelet Count 226 140-450 10^3/uL Mean Platelet Volume 7.0 6.9-10.8 fL Neutrophils (%) (Auto) 67.9 37.0-80.0 % Lymphocytes (%) (Auto) 22.4 10.0-50.0 % Monocytes (%) (Auto) 8.9 0.0-12.0 % Eosinophils (%) (Auto) 0.6 0.0-7.0 % Basophils (%) (Auto) 0.2 0.0-2.0 % Neutrophils # (Auto) 2.9 1.6-8.6 10 ^3/uL Lymphocytes # (Auto) 1.0 0.4-5.4 10 ^3/uL Monocytes # (Auto) 0.4 0-1.3 10 ^3/uL Eosinophils # (Auto) 0 0-0.8 10 ^3/uL Basophils # (Auto) 0 0-0.2 10 ^3/uL Nucleated Red Blood Cells 0.4 % Sodium Level 134 L 136-145 mmol/L Potassium Level 3.7 3.5-5.1 mmol/L Chloride Level 101 98-107 mmol/L Carbon Dioxide Level 20 20-31 mmol/L Anion Gap 13 5-15 Blood Urea Nitrogen 22 9-23 mg/dL Creatinine 0.96 0.700-1.30 mg/dL Glomerular Filtration Rate Calc 116 >90 mL/min BUN/Creatinine Ratio 22.9 H 10.0-20.0 Serum Glucose 83 74-106 mg/dL Calcium Level 8.7 8.7-10.4 mg/dL Total Bilirubin 0.5 0.2-1.0 mg/dL Aspartate Amino Transferase (AST) 49 H 13-40 U/L Alanine Aminotransferase (ALT) 23 7-40 U/L Alkaline Phosphatase 149 H 46-116 U/L Total Protein 6.2 5.7-8.2 g/dL Albumin 3.5 3.2-4.8 g/dL Lactic Acid Level 1.7 0.4-2.0 mmol/L Test 05/01/24 21:35 05/01/24 21:25 Range/Units Blood Gas Liter Flow 60.00 Blood Gas Critical Value Read Back Yes Blood Gas Notified Whom roxane Fallon md Blood Gas Notified Time [id number] Blood Gas Notified By emily Hernandez rrt Prothrombin Time 11.8 9.3-11.8 sec Prothrombin Time INR 1.12 0.9-1.15 Activated Partial Thromboplast Time 43.4 H 24.5-34.5 SEC Magnesium Level 1.9 1.6-2.6 mg/dL Thyroid Stimulating Hormone (TSH) 0.01 L 0.55-4.78 uIU/mL Free Thyroxine (T4) Calculated 1.20 0.89-1.76 ng/dL Plasma/Serum Blood Alcohol < 3.0 <10 mg/dL Assessment Impression: Acute hypoxic respiratory failure Acute hypercarbic respiratory failure On mechanical ventilator Aspiration pneumonia Generalized weakness Status epilepticus Electrolyte imbalances Sepsis Cerebral palsy Lactic acidosis, resolved Plan: s/p intubation on mechanical ventilator CT head report and images reviewed. Mild ventriculomegaly unchanged. No acute hemorrhage or infarct. CXR image and report reviewed. Devices in place. Patchy airspace opacities, right greater than left. Multifocal pneumonia. Bilateral pleural effusions. ABG reviewed. Acidemia due to CO2 retention. Hypoxemia PaO2 54 mmHg. Repeat ABG after mechanical ventilation demonstrated compensation. On assist control with respiratory rate of 20, tidal volume 350, peep of five, FiO2 at 100%. Titrate FIO2 to keep O2 saturation above 92%. VAP bundle Daily ABG and CXR while intubated. Sedate for ventilatory synchrony On pressors for hemodynamic support. On Levophed Titrate to keep MAP above 65 mmHg/SBP above 90 mmHg. Continue antibiotics. F/u cultures. Monitor renal function Monitor electrolytes. Supplement as necessary. Monitor ins and outs. Monitor lactic acid level. It trended back down to normal limits. Nutritional support. Accucheks, ISS. GI/DVT prophylaxis. Condition: Critical Prognosis: Poor given multiple comorbidities. Rest of plan per hospitalist and other consultants. A total of 36 minutes of critical care time was spent reviewing the patient record, examining the patient, making a diagnostic and therapeutic plan, discussing this plan with the medical personnel, following up on diagnostic studies and following the patient for clinical stability excluding any and all procedures. At least 50% of this time was spent in direct, [id number] contact. Thank you ELIO Estrada for allowing me to participate in this patient's care. Further recommendations will depend on patient's clinical course. Please do not hesitate to contact me if you have any questions or concerns. This medical document was created using an electronic medical record system with [employer] dictation system. Although this document has been carefully reviewed, there may still be some phonetic and typographical errors. These areas are purely typographical due to imperfections of the software programs, and do not reflect any compromise in the patient's medical care. Plan discussed with: Other (CLARI Ferrer, ANCHOR OPERATOR) POOJA KEENAN MD May 02, 2024 10:12
--- NOTE | 2024-05-02 10:16 | DVHNC2 ---
Procedure - Bronchoscopy procedure note: Indications: Right lower lobe atelectasis, Possible mucous plugging. Medicines: See GENERAL LABORER notes. Complications: None Procedure: Patient medications and allergies reviewed. The risks and benefits of the procedure and the sedation options and risk were discussed with the patient's healthcare proxy. All questions were answered and informed consent was obtained. Patient identification and proposed procedure were verified prior to the procedure by the physician, and a nurse, and the respiratory therapist in ED room. The heart rate, respiratory rate, oxygen saturations, blood pressure, adequacy of pulmonary ventilation, and response to care were monitored throughout the procedure. The physical status of the patient was reassessed after the procedure. After obtaining informed consent, the bronchoscope was introduced through the endotracheal tube and advanced into the trachea bronchial tree of both lungs. The procedure was accomplished without difficulty. The patient tolerated the procedure well. Findings: The trachea is in normal caliber. The sneha is sharp. The tracheobronchial tree of the right lung was examined to at least the first subsegmental level. The bronchial mucosa and anatomy in the right lung are normal. There are no endobronchial lesions. There was copious whitish secretions from right main stem bronchus onward throughout R4-R10. The left upper lobe, lingula, and left lower lobe were examined to at least the first subsegmental level. Bronchial mucosa and anatomy in the left upper lobe and lingula are normal. There were no endobronchial lesions. There was scant secretions in the left lung. There was no active bleeding at the completion of the procedure. Estimated blood loss: Less than 5 mL. Impression: Right lower lobe atelectasis due to mucous plugging Mucous plugging from R4-R10 Recommendation: Pulmonary toileting Procedure codes: 50417, bronchoscopy, rigid and flexible, including fluoroscopic guidance, one performed; with bronchial endobronchial removal of mucous plugs, single or multiple sites POOJA KEENAN MD May 02, 2024 10:16
[2024-05-02] MEDS: ACETAMINOPHEN 325 MG TAB PO PRN (11:36)
[2024-05-02] MEDS: ALBUTEROL SULF 2.5 MG/0.5ML(0.5%) NEB SOLN NEB PRN (14:47)
[2024-05-02] MEDS: IPRATROPIUM BROM 0.5 MG/2.5ML INH SOL NEB PRN (14:47)
[2024-05-02 15:06] LABS: COVID19 ANTIGEN SOFIA FIA NEGATIVE (NEGATIVE)
[2024-05-02 15:13] LABS: Rapid Influenza A Negative (Negative); Rapid Influenza B Negative (Negative)
--- NOTE | 2024-05-02 15:17 | DVHPN2 ---
Subjective Year old male with a history of cerebral palsy, seizure disorder, hypo thyroidism, adrenal insufficiency is brought to the hospital with acute respiratory failure and hypoxia and seizures He had to be intubated Chest x-ray shows pneumonia Possibly aspiration pneumonia He had a bronchoscopy this morning He had several seizures overnight At this time he is intubated and sedated with Versed and propofol He is tachycardic 120-130 with fever temperature is 100.4 Changes from previous H/P or p: Changes Eyes: No Pain, No Vision change, No Conjunctivae inflammation, No Eyelid inflammation, No Other, No Redness ENT: No Ear pain, No Ear discharge, No Nose pain, No Nose discharge, No Nose congestion, No Mouth pain, No Mouth swelling, No Throat pain, No Throat swelling, No Other Cardiovascular: No Chest Pain, No Palpitations, No Orthopnea, No Paroxysmal Noc. Dyspnea, No Edema, No Lt Headedness, No Other Respiratory: Cough; No Dry; Shortness of breath; No SOB with excertion, No Wheezing, No Hemoptysis, No Pleuritic Pain, No Sputum, No Other Gastrointestinal: No Nausea, No Vomiting, No Abdominal Pain, No Diarrhea, No Constipation, No Melena, No Hematochezia, No Other Genitourinary: No Dysuria, No Frequency, No Incontinence, No Hematuria, No Retention, No Other Musculoskeletal: No other, No neck pain, No shoulder pain, No arm pain, No back pain, No hand pain, No leg pain, No foot pain Skin: No Rash, No Lesions, No Jaundice, No Bruising, No Other Objective Vitals Vital Signs Date Time Temp Pulse Resp B/P (MAP) Pulse Ox O2 Delivery O2 Flow Rate FiO2 05/02/24 14:00 128 05/02/24 14:00 30 05/02/24 14:00 20 102/68 (79) 100 05/02/24 14:00 Mechanical Ventilator+ 05/02/24 12:45 100.4 100.4 05/01/24 21:45 60.0 Intake/Output Intake and Output 05/02/24 07:00 Intake Total 1733.99 ml Output Total 1950 ml Balance -216.01 ml Intake Oral 0 ml IV Total 1733.99 ml Output Urine Total 1950 ml General Appearance: Other (Betadine sedated) Lungs: Other (Bilateral rhonchi) Cardiovascular: Other (Tachycardic) Abdomen: Normal bowel sounds, Soft, No tenderness Extremities: No edema Medications Current Medications Medications Dose Ordered Sig/Adri Route Start Time Stop Time Status Last Admin Dose Admin Propofol 100 ml @ 1.68 mls/hr Q24H IV 05/01/24 22:15 05/01/24 22:15 1.68 MLS/HR Norepinephrine Bitartrate 250 ml @ 3.75 mls/hr Q24H IV 05/01/24 22:30 05/02/24 08:48 52.5 MLS/HR Hydrocortisone 10 mg DAILY PO 05/02/24 10:00 05/02/24 09:50 10 MG Ceftriaxone Sodium 50 ml @ 100 mls/hr DAILY@09 IV 05/02/24 09:00 05/02/24 09:50 100 MLS/HR Sodium Chloride 1,000 ml @ 60 mls/hr [id number] IV 05/01/24 23:30 05/02/24 02:35 60 MLS/HR Acetaminophen/ Hydrocodone Bitart 1 tab Q4HP PRN PO 05/01/24 23:30 Ondansetron HCl 4 mg Q4HP PRN IV 05/01/24 23:30 Acetaminophen 650 mg Q6HP PRN PO 05/01/24 23:30 05/02/24 11:36 650 MG Nitroglycerin 0.4 mg Q5MINP PRN SL 05/01/24 23:30 Morphine Sulfate 2 mg Q30M PRN IV 05/01/24 23:30 Phenylephrine HCl 250 ml @ 30 mls/hr Q8H20M IV 05/02/24 00:15 05/02/24 00:15 30 MLS/HR Midazolam HCl 50 ml @ 1 mls/hr Q24H IV 05/02/24 06:15 05/02/24 12:39 12 MLS/HR Levetiracetam 100 ml @ 400 mls/hr BID IV 05/02/24 20:00 Piperacillin Sod/ Tazobactam Sod 100 ml @ 25 mls/hr Q8HR IV 05/02/24 08:00 05/02/24 13:53 25 MLS/HR Albuterol 2.5 mg Q4HPRN PRN NEB 05/02/24 14:15 05/02/24 14:47 2.5 MG Ipratropium Max 0.5 mg Q4HPRN PRN NEB 05/02/24 14:15 05/02/24 14:47 0.5 MG Fentanyl Citrate 250 ml @ 2.5 mls/hr Q24H IV 05/02/24 15:00 UNV Laboratory Results Laboratory Tests 05/02/24 03:20 Chemistry Test 05/01/24 21:25 05/02/24 03:20 Albumin 3.6 g/dL (3.2-4.8) 3.5 g/dL (3.2-4.8) Calcium Level 8.7 mg/dL (8.7-10.4) 8.7 mg/dL (8.7-10.4) Magnesium Level 1.9 mg/dL (1.6-2.6) Total Protein 6.1 g/dL (5.7-8.2) 6.2 g/dL (5.7-8.2) Coagulation Test 05/01/24 21:25 Prothrombin Time 11.8 sec (9.3-11.8) Prothrombin Time INR 1.12 (0.9-1.15) Activated Partial Thromboplast Time 43.4 SEC (24.5-34.5) H LFT Test 05/01/24 21:25 05/02/24 03:20 Alanine Aminotransferase (ALT) 20 U/L (7-40) 23 U/L (7-40) Alkaline Phosphatase 136 U/L (46-116) H 149 U/L (46-116) H Aspartate Amino Transferase (AST) 34 U/L (13-40) 49 U/L (13-40) H Total Bilirubin 0.4 mg/dL (0.2-1.0) 0.5 mg/dL (0.2-1.0) HgA1c, TSH Test 05/01/24 21:25 Thyroid Stimulating Hormone (TSH) 0.01 uIU/mL (0.55-4.78) L Blood Gas Results Test 05/01/24 21:35 05/01/24 23:16 05/02/24 07:08 Arterial Blood pH 7.300 (7.350-7.450) 7.364 (7.350-7.450) 7.396 (7.350-7.450) FiO2 % 100.0 100.0 50.0 Assessment/Plan Assessment/Plan Acute Hypoxic respiratory failure Aspiration pneumonia Seizure disorder with status epilepticus Electrolytes imbalance Hyponatremia Sepsis Lactic acidosis Cerebral palsy Adrenal insufficiency Hypothyroidism Plan Mechanical ventilation IV antibiotics Zosyn IV fluids normal saline Seizure medication Keppra, phenobarbital, clobazam, rufinamide, Resume levothyroxine Resume hydrocortisone tablets Sedation with Versed Propofol Add fentanyl Pulmonary consult Neurology consult Discussed with his uncle at the bedside who is the POA Full code Advance directives discussed for 20 minute Plan discussed with: Other My Orders Orders - CHARLENE TALBOT MD Procedure Category Date Status Time Rapid Influenza A&B LAB 05/02/24 In Process 12:18 Covid19 Antigen Perri LAB 05/02/24 In Process Fentanyl Drip PHA 05/02/24 Logged 2500mcg/250mlns 15:00 Levetiracetam Oral PHA 05/02/24 Transmitted Solution (Keppra Oral 22:00 Levothyroxine Tablet PHA 05/03/24 Transmitted (Synthroid Tablet) 06:00 Date of Service: May 02, 2024 Billing Provider: CHARLENE TALBOT MD Common Visit Codes: 99254-NMCGJWTW CARE 30-74 MIN Secondary Visit Codes: 96040-LPTIFHDJ CARE PLAN 30 MINUTES CHARLENE TALBOT MD May 02, 2024 15:17
[2024-05-02] MEDS: fentaNYL Drip 2500mCg/250mlNS 250 ML IV ONE (15:21)
[2024-05-02] MEDS: fentaNYL Drip 2500mCg/250mlNS 250 ML IV SCH (15:31)
[2024-05-02] MEDS: PANTOPRAZOLE 40 MG/10 ML VIAL INJ IV ONE (15:49)
--- NOTE | 2024-05-02 19:03 | DVHPN2 ---
Progress Note - Dictate Date Seen: May 02, 2024 Medical Necessity Reason Pt with a Central, PICC or Fol: No Subjective Patient seen and examined at bedside. Sedated, intubated on mechanical ventilator. Overnight events reviewed. vital signs Vital Sign Date Time Temp Pulse Resp B/P (MAP) Pulse Ox O2 Delivery O2 Flow Rate FiO2 05/02/24 18:30 137 21 101/36 (57) 98 05/02/24 18:15 98.5 98.5 05/02/24 18:00 30 05/02/24 18:00 Mechanical Ventilator+ 05/01/24 21:45 60.0 Total Intake and Output 05/01/24 05/01/24 05/02/24 15:00 23:00 07:00 Intake Total 500 ml 1233.99 ml Output Total 1950 ml Balance 500 ml -716.01 ml medications Current Medications Medications Dose Ordered Sig/Adri Route Start Time Stop Time Status Last Admin Dose Admin Propofol 100 ml @ 1.68 mls/hr Q24H IV 05/01/24 22:15 05/01/24 22:15 1.68 MLS/HR Norepinephrine Bitartrate 250 ml @ 3.75 mls/hr Q24H IV 05/01/24 22:30 05/02/24 08:48 52.5 MLS/HR Sodium Chloride 1,000 ml @ 60 mls/hr [id number] IV 05/01/24 23:30 05/02/24 16:10 60 MLS/HR Acetaminophen 650 mg Q6HP PRN PO 05/01/24 23:30 05/02/24 11:36 650 MG Phenylephrine HCl 250 ml @ 30 mls/hr Q8H20M IV 05/02/24 00:15 05/02/24 00:15 30 MLS/HR Midazolam HCl 50 ml @ 1 mls/hr Q24H IV 05/02/24 06:15 05/02/24 16:40 15 MLS/HR Piperacillin Sod/ Tazobactam Sod 100 ml @ 25 mls/hr Q8HR IV 05/02/24 08:00 05/02/24 13:53 25 MLS/HR Ipratropium [place] 0.5 mg Q4HPRN PRN NEB 05/02/24 14:15 05/02/24 14:47 0.5 MG Fentanyl Citrate 250 ml @ 2.5 mls/hr Q24H IV 05/02/24 15:00 05/02/24 15:31 2.5 MLS/HR Levetiracetam 1,500 mg BID PO 05/02/24 22:00 Levothyroxine Sodium 125 mcg QAM@0600 PO 05/03/24 06:00 Phenobarbital 32.4 mg Q8HR PO 05/02/24 22:00 Hydrocortisone 10 mg BID PO 05/02/24 22:00 Pantoprazole Sodium 40 mg DAILY IV 05/03/24 10:00 Enoxaparin Sodium 30 mg DAILY SC 05/03/24 10:00 Levalbuterol HCl 0.625 mg Q4HPRN PRN NEB 05/02/24 16:15 objective Gen.: Patient lying in bed in medical ICU. Sedated, intubated on mechanical ventilator. Head: Normocephalic, atraumatic. Eyes: PERRLA. Ears: Normal external anatomy. Throat: Endotracheal tube and orogastric tube in place. Neck: Supple, trachea midline. Chest: Transmitted breath sounds bilaterally. Decreased air entry bilaterally. No wheezing. Bibasilar crackles. Cardiovascular: Positive S1, positive S2. Regular rate and rhythm. Abdomen: Positive bowel sounds in all 4 quadrants. Soft, nontender, nondistended. : Solitario in place. Normal external genitalia. Rectal: Deferred. Skin: Warm, dry. Intact. Extremities: 2+ radial pulses bilaterally. No lower extremity edema. Neuro: Sedated. laboratory and microbiology Laboratory Tests 05/02/24 03:20 Test 05/02/24 03:20 Range/Units Serum Glucose 83 74-106 mg/dL Assessment/Plan Impression: Acute hypoxic respiratory failure Acute hypercarbic respiratory failure On mechanical ventilator Aspiration pneumonia Generalized weakness Status epilepticus Electrolyte imbalances Sepsis Cerebral palsy Lactic acidosis, resolved Events: Remains on vent support On assist control with respiratory rate of 20, tidal volume 350, PEEP of 5, FiO2 at 50%. Patient is s/p therapeutic bronchoscopy - mucous plugging from R4-R10 See separate procedure note for details. Sedated on Propofol, Versed, Fentanyl ABG reviewed, compensated. On pressors for hemodynamic support. On Levophed 25 mcg/min Titrate to keep MAP above 65 mmHg/SBP above 90 mmHg. Continue antibiotics Continue pulmonary toileting Labs and imaging reviewed. Rest of plan as noted below. Plan: s/p intubation on mechanical ventilator CT head report and images reviewed. Mild ventriculomegaly unchanged. No acute hemorrhage or infarct. CXR image and report reviewed. Devices in place. Patchy airspace opacities, right greater than left. Multifocal pneumonia. Bilateral pleural effusions. ABG reviewed. Acidemia due to CO2 retention. Hypoxemia PaO2 54 mmHg. Repeat ABG after mechanical ventilation demonstrated compensation. On assist control with respiratory rate of 20, tidal volume 350, PEEP of 5, FiO2 at 50%. Titrate FIO2 to keep O2 saturation above 92%. VAP bundle Daily ABG and CXR while intubated. Sedate for ventilatory synchrony On pressors for hemodynamic support. Titrate to keep MAP above 65 mmHg/SBP above 90 mmHg. Continue antibiotics. F/u cultures. Monitor renal function Monitor electrolytes. Supplement as necessary. Monitor ins and outs. Monitor lactic acid level. Nutritional support. Accu-Cheks, ISS. GI/DVT prophylaxis. Condition: Critical Prognosis: Poor given multiple comorbidities. Rest of plan per hospitalist and other consultants. A total of 35 minutes of critical care time was spent reviewing the patient record, examining the patient, making a diagnostic and therapeutic plan, discussing this plan with the medical personnel, following up on diagnostic studies and following the patient for clinical stability excluding any and all procedures. At least 50% of this time was spent in direct, [id number] contact. Thank you ELIO Estrada for allowing me to participate in this patient's care. Further recommendations will depend on patient's clinical course. Please do not hesitate to contact me if you have any questions or concerns. This medical document was created using an electronic medical record system with [employer] dictation system. Although this document has been carefully reviewed, there may still be some phonetic and typographical errors. These areas are purely typographical due to imperfections of the software programs, and do not reflect any compromise in the patient's medical care. Plan discussed with: Other (RN) Critical Care Time(min): 35 POOJA KEENAN MD May 02, 2024 19:03
[2024-05-02] MEDS: LEVALBUTEROL HCL 1.25 MG/3 ML NEB NEB PRN (19:18)
[2024-05-02] MEDS: SODIUM CHLORIDE 0.9% 1,000 ML IV ONE (19:35)
[2024-05-02] MEDS: EPINEPHrine HCL 1 MG/10 ML SYRG ONE ×2 (20:13→20:21)
[2024-05-02] MEDS: VASOPRESSIN 20 UNIT/ML ONE (20:38)
[2024-05-02] MEDS: EPINEPHrine HCL 250 ML IV SCH (20:45)
[2024-05-02] MEDS: VASOPRESSIN 20 UNITS in SODIUM CHL 0.9% 99 ML IV SCH (21:11)
[2024-05-02 21:17] LABS: Hemoglobin 14.7 g/dL (13.5-17.5); Mean Corpuscular Hemoglobin 32.3 pg (28.0-32.0); Mean Corpuscular Hgb Conc. 33.5 g/dL (32.0-36.0); Mean Corpuscular Volume 96.6 fL (80.0-100.0); Platelet Count (auto) 333 10^3/uL (140-450); Red Blood Cells 4.55 10^6/uL (4.5-5.90); Red Cell Distribution Width 14.3 % (11.8-14.3); White Blood Cell 13.9 10^3/uL (4.4-10.8)
[2024-05-02 21:27] LABS: Chloride 107 mmol/L (98-107); Sodium 140 mmol/L (136-145)
[2024-05-02 21:28] LABS: Anion Gap 15 (5-15)
[2024-05-02 21:30] LABS: Basophils % (manual) 0 (0.0-2.0); Blast Cells 0; Calcium 8.2 mg/dL (8.7-10.4); Carbon Dioxide 18 mmol/L (20-31); Eosinophils % (manual) 0 (0-7); Metamyelocytes % 0; Myelocytes % 0; Potassium 3.4 mmol/L (3.5-5.1); Promyelocytes % 0; Reactive Lymphocytes 0
[2024-05-02 21:33] LABS: Blood Urea Nitrogen 17 mg/dL (9-23)
[2024-05-02 21:37] LABS: Lactic Acid w/Reflex 6.8 mmol/L (0.4-2.0)
[2024-05-02 21:38] LABS: Glucose 137 mg/dL (74-106)
--- NOTE | 2024-05-02 21:59 | DVH ---
CHEST RADIOGRAPH Indication: central line placement Technique: Single frontal view of the chest was obtained Comparison: XY CHEST XRAY 1 VIEW on DOS: 05/01/24, XY CHEST PORTABLE on DOS: 05/01/24, CHEST PORTABLE on DOS: 08/26/21 FINDINGS: Lines and Tubes: Endotracheal tube is in satisfactory position. Interval removal of the left subclav ramirez approach central venous catheter. Lungs: Near-complete opacification of the left hemithorax with atelectasis of the left lung. Perihilar opacities of the right lung colon slightly improved from prior imaging.. No pneumothorax. Cardiomediastinal contours: Limited evaluation of the Heart size given opacification of the left john thorax. Bones: No acute osseous abnormality. IMPRESSION: Interval development of near-complete opacification of the left hemithorax which may represent large effusion with associated atelectasis. Improving right perihilar opacities which may represent improving pulmonary edema /pneumonia. Endotracheal tube is in satisfactory position.
[2024-05-02 22:04] LABS: Band Neutrophils % (manual) 10; Lymphocytes % (manual) 31 (10.0-50.0); Monocytes % (manual) 5 (0-12); Platelet Estimate Adequate
[2024-05-02] MEDS: PHENobarbital 32.4 MG TAB PO SCH (22:10)
--- NOTE | 2024-05-02 22:21 | RESUS ---
VEENA BRYANT ASSESSSMENT History of Events History of Events: Pt admitted 05/01/24 as ICU status for acute respiratory failure with hypoxia requiring intubation. Per primary RN, pt has been sinus tachy throughout shift with HR in 140s-150s; unable to measure a blood pressure when heart rate dropped and pulses lost. CPR started and VEENA BRYANT called. Initial Information Date: May 02, 2024 Time: 19:55 Location of Arrest: ER Arrest Witnessed: Yes CPR started initial time: 19:55 CPR started by whom: Hospital Staff Pre-Hospital Care: ACLS Type of arrest: Cardiac, Respiratory, Adult, Witnessed Spontaneous Respirations: No Pulse Present: No Monitoring: ECG, Pulse Oximetry, Telemetry Crash Cart Opened and Supplies: Yes Airway Ventilation Breathing at Onset: Assisted Oxygen Delivery Method: Mechanical Ventilator Time of first Assisted Ventila: 19:55 Artificial Ventilation: Bag/Mask Intubation Size: 7.0 cuffed Intubated by: Leeanne Intubation Attempts: 1 Intubated orally: Yes Intubated Nasaly: No Tube secured at: 20 (cm at lip) Comments: Pt intubated prior to code on 05/01/24 at 2205 Circulation Circulation #1: Time: 19:55 Pulse Rate (adult): 0 Blood Pressure Systolic: 0 Blood Pressure Diastolic: 0 Temperature (Fahrenheit): 99.3 (F; oral) Circulation #2: Time: 19:57 Pulse Rate (adult): 0 Blood Pressure Systolic: 0 Blood Pressure Diastolic: 0 Circulation Comment: Asystole Circulation #3: Time: 19:59 Pulse Rate (adult): 0 Blood Pressure Systolic: 0 Blood Pressure Diastolic: 0 Circulation Comment: Asystole Circulation #4: Time: 20:02 Pulse Rate (adult): 0 Blood Pressure Systolic: 0 Blood Pressure Diastolic: 0 Circulation Comment: Asystole Circulation #5: Time: 20:05 Pulse Rate (adult): 0 Blood Pressure Systolic: 0 Blood Pressure Diastolic: 0 Circulation Comment: Asystole Circulation #6: Time: 20:09 Pulse Rate (adult): 0 Blood Pressure Systolic: 0 Blood Pressure Diastolic: 0 Circulation Comment: Asystole Circulation #7: Time: 20:11 Pulse Rate (adult): 0 Blood Pressure Systolic: 0 Blood Pressure Diastolic: 0 Circulation Comment: Asystole Circulation #8: Time: 20:15 Pulse Rate (adult): 0 Blood Pressure Systolic: 0 Blood Pressure Diastolic: 0 Circulation Comment: PEA Circulation #9: Time: 20:18 Pulse Rate (adult): 0 Blood Pressure Systolic: 0 Blood Pressure Diastolic: 0 Circulation Comment: PEA Circulation #10: Time: 20:21 Pulse Rate (adult): 143 Blood Pressure Systolic: 192 Blood Pressure Diastolic: 168 Circulation Comment: ROSC Circulation #11: Time: 20:30 Pulse Rate (adult): 144 Blood Pressure Systolic: 119 Blood Pressure Diastolic: 65 Circulation #12: Time: 20:45 Pulse Rate (adult): 145 Blood Pressure Systolic: 86 Blood Pressure Diastolic: 56 Medications & Response Medications and Responses #1: Medication Time: 19:55 ADULT Medications Given ADULT: Epinephrine 1 mg Route of Administration: IV Heart Rate: 0 EKG Rhythm: Asystole Blood Pressure Systolic: 0 Blood Pressure Diastolic: 0 Respiratory Rate: 00 EKG Rhythm: Asystole Medications and Responses #2: Medication Time: 19:58 ADULT Medications Given ADULT: Epinephrine 1 mg Heart Rate: 0 EKG Rhythm: Asystole Blood Pressure Systolic: 0 Blood Pressure Diastolic: 0 Respiratory Rate: 0 EKG Rhythm: Asystole Medications and Responses #3: Medication Time: 20:01 ADULT Medications Given ADULT: Epinephrine 1 mg Route of Administration: IV Heart Rate: 0 EKG Rhythm: Asystole Blood Pressure Systolic: 0 Blood Pressure Diastolic: 0 Respiratory Rate: 0 EKG Rhythm: Asystole Medications and Responses #4: Medication Time: 20:04 ADULT Medications Given ADULT: Epinephrine 1 mg Route of Administration: IV Heart Rate: 0 EKG Rhythm: Asystole Blood Pressure Systolic: 0 Blood Pressure Diastolic: 0 Respiratory Rate: 0 EKG Rhythm: Asystole Medications and Responses #5: Medication Time: 20:05 Heart Rate: 0 EKG Rhythm: Asystole Blood Pressure Systolic: 0 Blood Pressure Diastolic: 0 Respiratory Rate: 0 EKG Rhythm: Asystole Medications and Responses #6: Medication Time: 20:07 ADULT Medications Given ADULT: Epinephrine 1 mg, Sodium Bacarbinate 50 meq Route of Administration: IV Heart Rate: 0 EKG Rhythm: Asystole Blood Pressure Systolic: 0 Blood Pressure Diastolic: 0 Respiratory Rate: 0 EKG Rhythm: Asystole Medications and Responses #7: Medication Time: 20:10 ADULT Medications Given ADULT: Epinephrine 1 mg Route of Administration: IV Heart Rate: 0 EKG Rhythm: Asystole Blood Pressure Systolic: 0 Blood Pressure Diastolic: 0 Respiratory Rate: 0 EKG Rhythm: Asystole Medications and Responses #8: Medication Time: 20:13 ADULT Medications Given ADULT: Epinephrine 1 mg Route of Administration: IV Heart Rate: 0 EKG Rhythm: Asystole Blood Pressure Systolic: 0 Blood Pressure Diastolic: 0 Respiratory Rate: 0 EKG Rhythm: PEA Medications and Responses #9: Medication Time: 20:17 ADULT Medications Given ADULT: Epinephrine 1 mg Route of Administration: IV Heart Rate: 0 EKG Rhythm: PEA Blood Pressure Systolic: 0 Blood Pressure Diastolic: 0 Respiratory Rate: 0 EKG Rhythm: PEA Medications and Responses #10: Medication Time: 20:20 ADULT Medications Given ADULT: Epinephrine 1 mg Route of Administration: IV Heart Rate: 0 EKG Rhythm: PEA Blood Pressure Systolic: 0 Blood Pressure Diastolic: 0 Respiratory Rate: 0 EKG Rhythm: Sinus Tachycardia Comment ROSC @ 2020 Procedure - NG/OG Tube Procedure - NG/OG Tube : Comment Pt has PEG tube Procedure - Central Venous Cat Central venous catheter site: Lt Subclavian Comment: Placed prior to code Procedure - Solitario Catheter Urine Appearance: Clear Urine Color: Yellow, Straw Solitario Catheter Secured: Yes Comment: Solitario placed prior to code Nurses Notes Davis Coma Scale Eye Opening: None (1) Darwin Coma Scale Verbal: None (1) Davis Coma Scale Motor: None (1) Glascow Total: 3 Pupil Reaction: Brisk Bedside Blood Glucose: 113 EKG Rhythm: Sinus Tachycardia (HR 143; EKG performed @ 2027) Time Code Ended Time Code Ended: 20:21 Post Arrest Status: Ventilated Outcome of code: Successful Family notified: Yes (Family present at bedside) Code Team Present: Dr Fallon - ER MD; Mundo Mobley, RN - ER Charge; Nikki Nath, RN - Associate Dean Of Students; Pilar Avila RN - Primary RN (day); Carissa Mobley, RN - Primary RN (NOC); Dede Villarreal, RT; Noni Harley, RN; Karen Henriquez, ERT; Jasmin Franco, ERT; Diane Nath, Journeyman [employer] (ICU); Blaze Hammond, [employer]ne[employer] (ER); Yaniv Vazquez, EMT ([facility]) Post Resuscitation Neurologica Pupil Size: 3 ROSC Time of ROSC: 20:21 Pt Meets Criteria for Therapeu: Yes Nikki Potter May 02, 2024 22:21
[2024-05-02] MEDS: levETIRAcetam 500 MG/5ML ORAL SOLN UD PO SCH (22:58)
[2024-05-03] VITALS (71 sets, daily range): BP systolic 86–121; BP diastolic 44–90; PULSE 74–104; RESP 20–34; TEMP 97–99; O2SAT 97–100
--- NOTE | 2024-05-03 01:41 | DVH ---
EXAM: XY CHEST PORTABLE CLINICAL HISTORY: chest tube placement TECHNIQUE: Single AP view of the chest WID: COMPARISON: XY CHEST PORTABLE on DOS: 05/02/24, Lines and tubes: Placement of left pleural drain projecting over the mid chest. Endotracheal tube pro jects 3.2 cm above the sneha. Chest: The heart size and pulmonary vasculature is within normal limits. Significant improvement in now small left pleural effusion. Patchy airspace opacities are seen in the perihilar and lower lungs greater on the right. No pneumothorax. The osseous structures are grossly intact. IMPRESSION: 1. Placement of left pleural drain with significant improvement in now trace left pleural effusion. 2. Patchy airspace opacities in the [id number]-left lungs which could reflect multifocal pneu monia and/or pulmonary edema. 3. Endotracheal tube projects 3.2 cm above the sneha.
[2024-05-03] MEDS: VASOPRESSIN 20 UNIT/ML ONE (03:51)
[2024-05-03 05:16] LABS: Basophils # (auto) 0 10 ^3/uL (0-0.2); Basophils % (auto) 0.2 % (0.0-2.0); Eosinophils # (auto) 0 10 ^3/uL (0-0.8); Eosinophils % (auto) 0.2 % (0.0-7.0); Hematocrit 39.2 % (41.0-53.0); Hemoglobin 13.4 g/dL (13.5-17.5); Lymphocytes # (auto) 1.5 10 ^3/uL (0.4-5.4); Lymphocytes % (auto) 19.4 % (10.0-50.0); Mean Corpuscular Hemoglobin 32.3 pg (28.0-32.0); Mean Corpuscular Hgb Conc. 34.1 g/dL (32.0-36.0); Mean Corpuscular Volume 94.7 fL (80.0-100.0); Monocytes # (auto) 0.6 10 ^3/uL (0-1.3); Neutrophils # (auto) 5.6 10 ^3/uL (1.6-8.6); Neutrophils % (auto) 72.2 % (37.0-80.0); Nucleated Red Blood Cells % 0.1 %; Platelet Count (auto) 226 10^3/uL (140-450); Red Blood Cells 4.14 10^6/uL (4.5-5.90); Red Cell Distribution Width 13.7 % (11.8-14.3); White Blood Cell 7.8 10^3/uL (4.4-10.8)
[2024-05-03 05:25] LABS: Anion Gap 8 (5-15); BUN/Creatinine Ratio 17.3 (10.0-20.0); Bilirubin, Total 0.6 mg/dL (0.2-1.0); Blood Urea Nitrogen 14 mg/dL (9-23); Carbon Dioxide 24 mmol/L (20-31); Magnesium 2.2 mg/dL (1.6-2.6); Potassium 3.6 mmol/L (3.5-5.1); Sodium 140 mmol/L (136-145)
[2024-05-03 05:27] LABS: Alanine Aminotransferase 51 U/L (7-40); Alkaline Phosphatase 144 U/L (46-116); Aspartate Aminotransferase 157 U/L (13-40); Chloride 108 mmol/L (98-107); Glucose 125 mg/dL (74-106)
[2024-05-03 05:28] LABS: Albumin 3.1 g/dL (3.2-4.8); Calcium 8.4 mg/dL (8.7-10.4); Total Protein 5.3 g/dL (5.7-8.2)
--- NOTE | 2024-05-03 05:35 | DVH ---
EXAM: XY CHEST PORTABLE Indication: vent Technique: Single frontal view of the chest was obtained Comparison: XY CHEST PORTABLE on DOS: 05/03/24, XY CHEST PORTABLE on DOS: 05/02/24, XY CHEST XRAY 1 V IEW on DOS: 05/01/24, XY CHEST PORTABLE on DOS: 05/01/24, CHEST PORTABLE on DOS: 08/26/21 FINDINGS: Lines and Tubes: Endotracheal tube projects 4 cm above level the sneha. Left pigtail catheter is vis ualized. Lungs: Multifocal patchy airspace opacities. Pleura: No effusion. No pneumothorax. Cardiomediastinal contours: Unremarkable Bones: No acute osseous abnormality. IMPRESSION: No significant change compared to prior exam.
[2024-05-03] MEDS: LEVOTHYROXINE SODIUM 50 MCG TAB PO SCH (06:22)
[2024-05-03 08:41] LABS: Base Excess -2.2 mmol/L (-2.0-3.0)
[2024-05-03] MEDS: ENOXAPARIN SOD 30 MG/0.3 ML SYRINGE SC SCH (10:00)
[2024-05-03] MEDS: PANTOPRAZOLE 40 MG/10 ML VIAL INJ IV SCH (11:07)
--- NOTE | 2024-05-03 13:49 | DVHPN2 ---
Subjective More stable today Off the Levophed drip Temperature is better Heart rate is about 100 Changes from previous H/P or p: Changes Eyes: No Pain, No Vision change, No Conjunctivae inflammation, No Eyelid inflammation, No Other, No Redness ENT: No Ear pain, No Ear discharge, No Nose pain, No Nose discharge, No Nose congestion, No Mouth pain, No Mouth swelling, No Throat pain, No Throat swelling, No Other Cardiovascular: No Chest Pain, No Palpitations, No Orthopnea, No Paroxysmal Noc. Dyspnea, No Edema, No Lt Headedness, No Other Respiratory: Cough; No Dry; Shortness of breath; No SOB with excertion, No Wheezing, No Hemoptysis, No Pleuritic Pain, No Sputum, No Other Gastrointestinal: No Nausea, No Vomiting, No Abdominal Pain, No Diarrhea, No Constipation, No Melena, No Hematochezia, No Other Genitourinary: No Dysuria, No Frequency, No Incontinence, No Hematuria, No Retention, No Other Musculoskeletal: No other, No neck pain, No shoulder pain, No arm pain, No back pain, No hand pain, No leg pain, No foot pain Skin: No Rash, No Lesions, No Jaundice, No Bruising, No Other Objective Vitals Vital Signs Date Time Temp Pulse Resp B/P (MAP) Pulse Ox O2 Delivery O2 Flow Rate FiO2 05/03/24 12:21 106/74 05/03/24 12:15 96 20 100 05/03/24 11:29 35 05/03/24 09:00 98.4 98.4 05/03/24 07:30 Mechanical Ventilator+ 05/01/24 21:45 60.0 Intake/Output Intake and Output 05/03/24 07:00 Intake Total 2687.16 ml Output Total 3205 ml Balance -517.84 ml Intake Oral 0 ml IV Total 2687.16 ml Output Urine Total 900 ml Chest Tube Drainage Total 2305 ml General Appearance: Other (Betadine sedated) Lungs: Other (Bilateral rhonchi) Cardiovascular: Other (Tachycardic) Abdomen: Normal bowel sounds, Soft, No tenderness Extremities: No edema Medications Current Medications Medications Dose Ordered Sig/Adri Route Start Time Stop Time Status Last Admin Dose Admin Propofol 100 ml @ 1.68 mls/hr Q24H IV 05/01/24 22:15 05/01/24 22:15 1.68 MLS/HR Norepinephrine Bitartrate 250 ml @ 3.75 mls/hr Q24H IV 05/01/24 22:30 05/02/24 08:48 52.5 MLS/HR Sodium Chloride 1,000 ml @ 60 mls/hr [id number] IV 05/01/24 23:30 05/02/24 16:10 60 MLS/HR Acetaminophen 650 mg Q6HP PRN PO 05/01/24 23:30 05/02/24 11:36 650 MG Phenylephrine HCl 250 ml @ 30 mls/hr Q8H20M IV 05/02/24 00:15 05/02/24 00:15 30 MLS/HR Midazolam HCl 50 ml @ 1 mls/hr Q24H IV 05/02/24 06:15 05/03/24 12:21 9 MLS/HR Piperacillin Sod/ Tazobactam Sod 100 ml @ 25 mls/hr Q8HR IV 05/02/24 08:00 05/03/24 06:21 25 MLS/HR Ipratropium [place] 0.5 mg Q4HPRN PRN NEB 05/02/24 14:15 05/03/24 06:33 0.5 MG Fentanyl Citrate 250 ml @ 2.5 mls/hr Q24H IV 05/02/24 15:00 05/02/24 15:31 2.5 MLS/HR Levetiracetam 1,500 mg BID PO 05/02/24 22:00 05/03/24 11:08 1,500 MG Levothyroxine Sodium 125 mcg QAM@0600 PO 05/03/24 06:00 05/03/24 06:22 125 MCG Phenobarbital 32.4 mg Q8HR PO 05/02/24 22:00 05/03/24 06:22 32.4 MG Hydrocortisone 10 mg BID PO 05/02/24 22:00 05/03/24 11:07 10 MG Pantoprazole Sodium 40 mg DAILY IV 05/03/24 10:00 05/03/24 11:07 40 MG Enoxaparin Sodium 30 mg DAILY SC 05/03/24 10:00 Levalbuterol HCl 0.625 mg Q4HPRN PRN NEB 05/02/24 16:15 05/03/24 06:33 0.625 MG Epinephrine HCl 250 ml @ 7.5 mls/hr Q24H IV 05/02/24 20:45 Vasopressin 20 units/Sodium Chloride 100 ml @ 9 mls/hr Q11H7M IV 05/02/24 20:45 05/02/24 21:11 9 MLS/HR Laboratory Results Laboratory Tests 05/03/24 04:45 Chemistry Test 05/02/24 21:01 05/03/24 04:45 Calcium Level 8.2 mg/dL (8.7-10.4) L 8.4 mg/dL (8.7-10.4) L Magnesium Level 2.4 mg/dL (1.6-2.6) 2.2 mg/dL (1.6-2.6) Albumin 3.1 g/dL (3.2-4.8) L Total Protein 5.3 g/dL (5.7-8.2) L LFT Test 05/03/24 04:45 Alanine Aminotransferase (ALT) 51 U/L (7-40) H Alkaline Phosphatase 144 U/L (46-116) H Aspartate Amino Transferase (AST) 157 U/L (13-40) H Total Bilirubin 0.6 mg/dL (0.2-1.0) Blood Gas Results Test 05/03/24 08:33 Arterial Blood pH 7.378 (7.350-7.450) FiO2 % 95.0 Microbiology Microbiology Date/Time Source Procedure Growth Status 05/02/24 16:20 Voided Urine Urine Culture - Preliminary Resulted 05/01/24 23:40 Sputum Gram Stain Pending Resulted 05/01/24 23:40 Sputum Respiratory Culture - Preliminary Resulted Assessment/Plan Assessment/Plan Acute Hypoxic respiratory failure Aspiration pneumonia Seizure disorder with status epilepticus Electrolytes imbalance Hyponatremia Sepsis Lactic acidosis Cerebral palsy Adrenal insufficiency Hypothyroidism Status post cardiac arrest and resuscitation yesterday evening Plan Mechanical ventilation IV antibiotics Zosyn IV fluids normal saline Seizure medication Keppra, phenobarbital, clobazam, rufinamide, Resume levothyroxine Resume hydrocortisone tablets Sedation with Versed Propofol Add fentanyl Pulmonary consult Neurology consult Discussed with his uncle at the bedside who is the POA Full code Advance directives discussed for 20 minute 05/03/2024: Increase the IV fluids to 100 mL an hour Continue the antiseizure medications Mechanical ventilation as needed IV antibiotics Zosyn Sedation as needed Continue Versed drip Continue phenobarbital IV Keppra Discussed with the mother at the bedside Full code Status post left lung collapse status post chest tube placement Plan discussed with: Other My Orders Orders - CHARLENE TALBOT MD Procedure Category Date Status Time Fentanyl Drip PHA 05/02/24 In Process 2500mcg/250mlns 15:00 Levetiracetam Oral PHA 05/02/24 In Process Solution (Keppra Oral 22:00 Levothyroxine Tablet PHA 05/03/24 In Process (Synthroid Tablet) 06:00 Phenobarbital Tablet PHA 05/02/24 In Process 22:00 Hydrocortisone Tablet PHA 05/02/24 In Process (Cortef Tablet) 22:00 Chest Portable XY 05/03/24 Resulted 06:00 Abg W/ Co-Ox RT 05/03/24 Logged 06:00 Pantoprazole PHA 05/03/24 In Process (Protonix) 10:00 Blood Culture MADHU 05/02/24 In Process 15:18 Insert Solitario Catheter JAVI 05/02/24 In Process 15:18 Urinalysis LAB 05/02/24 Logged 16:22 Urine Bacterial MADHU 05/02/24 In Process Culture 15:18 Enoxaparin Sodium PHA 05/03/24 In Process (Lovenox) 10:00 Epinephrine Hcl PHA 05/02/24 In Process Syringe 20:21 Levetiracetam Ivpb PHA 05/03/24 Transmitted Keppra 22:00 Date of Service: May 03, 2024 Billing Provider: CHARLENE TALBOT MD Common Visit Codes: [id number] CARE 30-74 MIN CHARLENE TALBOT MD May 03, 2024 13:49
[2024-05-03] MEDS: SODIUM CHLORIDE 0.9% 1,000 ML IV SCH (14:00)
[2024-05-03] MEDS ORDERED: [UNRECOGNIZED DRUG - CODE] PO (16:50)
[2024-05-03] MEDS ORDERED: [UNRECOGNIZED DRUG - CODE] PO (16:50)
[2024-05-03] MEDS ORDERED: CLOB2.5S OR (16:51)
--- NOTE | 2024-05-03 20:43 | DVHPN2 ---
Progress Note - Dictate Date Seen: May 03, 2024 Medical Necessity Reason Pt with a Central, PICC or Fol: No Subjective Patient seen and examined at bedside. Sedated, intubated on mechanical ventilator. Overnight events reviewed. vital signs Vital Sign Date Time Temp Pulse Resp B/P (MAP) Pulse Ox O2 Delivery O2 Flow Rate FiO2 05/03/24 20:15 89/54 05/03/24 20:00 20 98 Mechanical Ventilator+ 30 30 05/03/24 18:45 97.3 88 207.1 05/01/24 21:45 60.0 Total Intake and Output 05/02/24 05/02/24 05/03/24 15:00 23:00 07:00 Intake Total 1091.71 ml 902.45 ml 693 ml Output Total 400 ml 2805 ml Balance 1091.71 ml 502.45 ml -2112 ml medications Current Medications Medications Dose Ordered Sig/Adri Route Start Time Stop Time Status Last Admin Dose Admin Propofol 100 ml @ 1.68 mls/hr Q24H IV 05/01/24 22:15 05/01/24 22:15 1.68 MLS/HR Norepinephrine Bitartrate 250 ml @ 3.75 mls/hr Q24H IV 05/01/24 22:30 05/02/24 08:48 52.5 MLS/HR Acetaminophen 650 mg Q6HP PRN PO 05/01/24 23:30 05/02/24 11:36 650 MG Phenylephrine HCl 250 ml @ 30 mls/hr Q8H20M IV 05/02/24 00:15 05/02/24 00:15 30 MLS/HR Midazolam HCl 50 ml @ 1 mls/hr Q24H IV 05/02/24 06:15 05/03/24 15:39 9 MLS/HR Piperacillin Sod/ Tazobactam Sod 100 ml @ 25 mls/hr Q8HR IV 05/02/24 08:00 05/03/24 14:14 25 MLS/HR Ipratropium [place] 0.5 mg Q4HPRN PRN NEB 05/02/24 14:15 05/03/24 06:33 0.5 MG Fentanyl Citrate 250 ml @ 2.5 mls/hr Q24H IV 05/02/24 15:00 05/02/24 15:31 2.5 MLS/HR Levothyroxine Sodium 125 mcg QAM@0600 PO 05/03/24 06:00 05/03/24 06:22 125 MCG Phenobarbital 32.4 mg Q8HR PO 05/02/24 22:00 05/03/24 15:04 32.4 MG Hydrocortisone 10 mg BID PO 05/02/24 22:00 05/03/24 11:07 10 MG Pantoprazole Sodium 40 mg DAILY IV 05/03/24 10:00 05/03/24 11:07 40 MG Enoxaparin Sodium 30 mg DAILY SC 05/03/24 10:00 Levalbuterol HCl 0.625 mg Q4HPRN PRN NEB 05/02/24 16:15 05/03/24 06:33 0.625 MG Epinephrine HCl 250 ml @ 7.5 mls/hr Q24H IV 05/02/24 20:45 Vasopressin 20 units/Sodium Chloride 100 ml @ 9 mls/hr Q11H7M IV 05/02/24 20:45 05/02/24 21:11 9 MLS/HR Levetiracetam 100 ml @ 400 mls/hr BID IV 05/03/24 22:00 Sodium Chloride 1,000 ml @ 100 mls/hr Q10H IV 05/03/24 14:00 05/03/24 14:00 100 MLS/HR Patient Own Medication 5 ml BIDBL PEG 05/04/24 08:00 05/11/24 08:00 objective Gen.: Patient lying in bed in medical ICU. Sedated, intubated on mechanical ventilator. Head: Normocephalic, atraumatic. Eyes: PERRLA. Ears: Normal external anatomy. Throat: Endotracheal tube and orogastric tube in place. Neck: Supple, trachea midline. Chest: Transmitted breath sounds bilaterally. Decreased air entry bilaterally. No wheezing. Bibasilar crackles. Cardiovascular: Positive S1, positive S2. Regular rate and rhythm. Abdomen: Positive bowel sounds in all 4 quadrants. Soft, nontender, nondistended. : Solitario in place. Normal external genitalia. Rectal: Deferred. Skin: Warm, dry. Intact. Extremities: 2+ radial pulses bilaterally. No lower extremity edema. Neuro: Sedated. laboratory and microbiology Laboratory Tests 05/03/24 04:45 Test 05/03/24 04:45 Range/Units Serum Glucose 125 H 74-106 mg/dL Assessment/Plan Impression: Acute hypoxic respiratory failure Acute hypercarbic respiratory failure On mechanical ventilator Aspiration pneumonia Generalized weakness Status epilepticus Electrolyte imbalances Sepsis Cerebral palsy Lactic acidosis, resolved S/p cardiac arrest with ROSC Traumatic pleural effusion Atelectasis, compressive Events: Remains on vent support On assist control with respiratory rate of 20, tidal volume 350, PEEP of 5, FiO2 at 40%. Improved FiO2 requirements Note, patient suffered cardiac arrest overnight. Code blue was called. ROSC was able to be achieved. Sedated on Versed S/p left chest tube placement. ABG reviewed, compensated. On pressors for hemodynamic support. On vasopressin 0.03 units/min; Off Levophed Titrate to keep MAP above 65 mmHg/SBP above 90 mmHg. Continue antibiotics Follow up cultures IV fluids at 60 ml/hr. Continue pulmonary toileting 05/02/24 - S/p therapeutic bronchoscopy - mucous plugging from R4-R10 See separate procedure note for details. Labs and imaging reviewed. Rest of plan as noted below. Plan: s/p intubation on mechanical ventilator CT head report and images reviewed. Mild ventriculomegaly unchanged. No acute hemorrhage or infarct. CXR image and report reviewed. Devices in place. Patchy airspace opacities, right greater than left. Multifocal pneumonia. Bilateral pleural effusions. ABG reviewed. Acidemia due to CO2 retention. Hypoxemia PaO2 54 mmHg. Repeat ABG after mechanical ventilation demonstrated compensation. On assist control with respiratory rate of 20, tidal volume 350, PEEP of 5, FiO2 at 40%. Titrate FIO2 to keep O2 saturation above 92%. VAP bundle Daily ABG and CXR while intubated. Sedate for ventilatory synchrony On pressors for hemodynamic support. Titrate to keep MAP above 65 mmHg/SBP above 90 mmHg. Continue antibiotics. F/u cultures. Monitor renal function Monitor electrolytes. Supplement as necessary. Monitor ins and outs. Monitor lactic acid level. Nutritional support. Accu-Cheks, ISS. GI/DVT prophylaxis. Condition: Critical Prognosis: Poor given multiple comorbidities. Rest of plan per hospitalist and other consultants. A total of 35 minutes of critical care time was spent reviewing the patient record, examining the patient, making a diagnostic and therapeutic plan, discussing this plan with the medical personnel, following up on diagnostic studies and following the patient for clinical stability excluding any and all procedures. At least 50% of this time was spent in direct, [id number] contact. Thank you ELIO Estrada for allowing me to participate in this patient's care. Further recommendations will depend on patient's clinical course. Please do not hesitate to contact me if you have any questions or concerns. This medical document was created using an electronic medical record system with [employer] dictation system. Although this document has been carefully reviewed, there may still be some phonetic and typographical errors. These areas are purely typographical due to imperfections of the software programs, and do not reflect any compromise in the patient's medical care. Plan discussed with: Other (CLARI Infante) Critical Care Time(min): 35 POOJA KEENAN MD May 03, 2024 20:43
[2024-05-03] MEDS: levETIRAcetam 1500 mg/100ml 100 ML IV SCH (21:46)
[2024-05-04] VITALS (106 sets, daily range): BP systolic 86–133; BP diastolic 38–85; PULSE 46–94; RESP 16–22; TEMP 98.1–100.2; O2SAT 97–100
[2024-05-04 04:10] LABS: Basophils # (auto) 0 10 ^3/uL (0-0.2); Basophils % (auto) 0.3 % (0.0-2.0); Eosinophils # (auto) 0 10 ^3/uL (0-0.8); Eosinophils % (auto) 0.9 % (0.0-7.0); Hematocrit 35.9 % (41.0-53.0); Hemoglobin 12.2 g/dL (13.5-17.5); Lymphocytes # (auto) 1.3 10 ^3/uL (0.4-5.4); Lymphocytes % (auto) 24.4 % (10.0-50.0); Mean Corpuscular Hemoglobin 32.3 pg (28.0-32.0); Mean Corpuscular Hgb Conc. 33.9 g/dL (32.0-36.0); Mean Corpuscular Volume 95.2 fL (80.0-100.0); Monocytes # (auto) 0.6 10 ^3/uL (0-1.3); Monocytes % (auto) 10.6 % (0.0-12.0); Neutrophils # (auto) 3.5 10 ^3/uL (1.6-8.6); Neutrophils % (auto) 63.8 % (37.0-80.0); Nucleated Red Blood Cells % 0.1 %; Platelet Count (auto) 197 10^3/uL (140-450); Red Blood Cells 3.77 10^6/uL (4.5-5.90); Red Cell Distribution Width 13.7 % (11.8-14.3); White Blood Cell 5.4 10^3/uL (4.4-10.8)
[2024-05-04 04:26] LABS: Anion Gap 10 (5-15); BUN/Creatinine Ratio 9.6 (10.0-20.0); Carbon Dioxide 24 mmol/L (20-31); Glucose 91 mg/dL (74-106); Magnesium 2.2 mg/dL (1.6-2.6)
[2024-05-04 04:27] LABS: Bilirubin, Total 0.6 mg/dL (0.2-1.0)
[2024-05-04 04:33] LABS: Alanine Aminotransferase 66 U/L (7-40); Albumin 2.9 g/dL (3.2-4.8); Alkaline Phosphatase 191 U/L (46-116); Aspartate Aminotransferase 210 U/L (13-40); Blood Urea Nitrogen 5 mg/dL (9-23); Calcium 8.4 mg/dL (8.7-10.4); Chloride 113 mmol/L (98-107); Potassium 3.1 mmol/L (3.5-5.1); Sodium 147 mmol/L (136-145)
--- NOTE | 2024-05-04 05:51 | DVH ---
CHEST RADIOGRAPH Indication: FU Technique: Single frontal view of the chest was obtained COMPARISON: XY CHEST PORTABLE on DOS: 05/03/24, XY CHEST PORTABLE on DOS: 05/03/24, XY CHEST PORTABLE on DOS: 05/02/24, XY CHEST XRAY 1 VIEW on DOS: 05/01/24, XY CHEST PORTABLE on DOS: 05/01/24, XY CHES T PORTABLE on DOS: 05/03/24 FINDINGS: Lines and Tubes: Endotracheal tube projects 4 cm above level the sneha. Left pigtail catheter is vis ualized. Lungs: Multifocal patchy airspace opacities. Pleura: No effusion. No pneumothorax. Cardiomediastinal contours: Unremarkable Bones: No acute osseous abnormality. IMPRESSION: No significant change compared to prior exam.
[2024-05-04 08:22] LABS: Base Excess -1.2 mmol/L (-2.0-3.0)
[2024-05-04] MEDS ORDERED: DEXTROSE (50%) 50ML SYRG IV PRN (11:00)
[2024-05-04] MEDS: POTASSIUM CHL 20MEQ/100ML 100 ML IV ONE (11:08)
[2024-05-04] MEDS: ACETAMINOPHEN IV 1000 MG/100ML (10MG/ML) IV ONE (12:00)
[2024-05-04 12:31] LABS: Urine Bacteria FEW /hpf (None Seen); Urine Blood 2+ /uL (Negative); Urine Clarity Clear (Clear); Urine Color Yellow (Yellow); Urine Mucus FEW (None Seen); Urine Protein, UAD TRACE (Negative); Urine Specific Gravity 1.021 (1.001-1.035); Urine Sperm PRESENT /hpf (None Seen); Urine Squamous Epithelial Cell None Seen /hpf (<5); Urine Urobilinogen Normal (Negative); Urine WBC 6 /hpf (0 - 3)
[2024-05-04] MEDS: POTASSIUM CHL 20MEQ/100ML 100 ML IV SCH (12:52)
[2024-05-04] MEDS: ACCU-CHEK COMFORT CURVE STRIP VI SCH (12:52)
[2024-05-04] MEDS: Jevity 1.2 Cal/Fiber 1 Liter GT SCH (13:50)
[2024-05-04] MEDS: HYDROCORTISONE SOD SUCC 100 MG/2ML INJ VIAL IV SCH (14:59)
--- NOTE | 2024-05-04 16:11 | DVH ---
EXAM: CT HEAD WITHOUT CONTRAST INDICATION: S/P CPR TECHNIQUE: CT of the head without intravenous contrast. Radiation Dose : 1. Head: CT Dose: CTDI volume is 53.17 mGy. Dose-length product is 941.44 mGy*cm The dose indicators for CT are the volume Computed Tomography (CT) Dose Index (CTDIvol) and the Dose Length Product (DLP), and are measured in units of mGy and mGy-cm, respectively. These indicators are not patient dose, but values generated from the CT scanner acquisition factors. The report includes radiation exposure data for exposures received during this examination. COMPARISON: CT HEAD WITHOUT CONTRAST on DOS: 05/02/24, HEAD WITHOUT CONTRAST on DOS: 08/26/21, HEAD WI THOUT CONTRAST on DOS: 05/24/19, CERVICAL WITHOUT CONTRAST on DOS: 05/24/19 FINDINGS: There is no evidence of acute intracranial hemorrhage, extra-axial collection, mass effect, midline s hift, herniation or hydrocephalus. Left temporal lobe encephalomalacia. Stable mild ventriculomegaly The donovan-white differentiation is intact. Patchy periventricular and subcortical white matter hypoattenuation is nonspecific but may be related to small vessel ischemic disease. The visualized paranasal sinuses and mastoid air cells are clear. Right frontal craniotomy IMPRESSION: 1. No acute intracranial abnormality. 2. Stable mild ventriculomegaly. Radiation optimization: All CT scans at this facility use at least one of these dose optimization genie hniques: automated exposure control mA and/or kV adjustment per patient size (includes targeted exam s where dose is matched to clinical indication) or iterative reconstruction.
--- NOTE | 2024-05-04 16:28 | DVHINCON2 ---
Date of service: May 04, 2024 Referring Physician hospitalist Reason for Consultation paraphimosis History of Present Illness History Source: Family Exam Limitations: Clinical condition HPI 19-year-old male with past medical history of seizure, cerebral palsy, adrenal insufficiency, and thyroid disease presented to [facility] ED with conservative mother for evaluation of shortness of breaths. As reported by mother, patient was noted flu-like symptoms, cough hypoxia, generalized we akness, lethargy, difficulty to arouse, desaturating at 77% on room air upon arrival to the ED and was subsequently intubated due to high probability of clinically significant life-threatening deterioration. Laboratory data shows WBC 4.1, platelets 230, sodium 132, potassium 3.3, BUN 26, creatinine 0.91, GFR 124, glucose 83, lactic acid 3.2, blood pressure 110/92 trending down to 76/34, heart rate 118, temperature 98.4 F, O2 saturation 91% on ventilator. Chest x-ray revealing large pulmonary consolidation mid right chest may represent mass or airspace disease, bibasilar infiltrates and small pleural effusions are seen. Patient was started on IV antibiotic regimen Zosyn, please see medication orders section in the computer. On my assessment, conservative mother at bedside, no diaphoresis, no diarrhea, no vomiting, no fever or chills at this moment. Patient was admitted for further evaluation and medical management. Urology consulted for paraphimosis. Home Meds Reported Medications Clobazam (ONFI) 2.5 Mg/Ml Rosie, 2.5 MG OR, ML 05/03/24 Rufinamide (Rufinamide) 40 Mg/Ml Rosie, 40 MG PO, ML 05/03/24 Rufinamide (BANZEL) 40 Mg/Ml Rosie, 40 MG PO, ML 05/03/24 Oxcarbazepine (TRILEPTAL TABLET) 300 Mg Tb, 600 MG GT BID 03/20/14 Hydrocortisone Base (Hydrocortisone) 5 Mg Tab, BID, #360 03/20/14 Levetiracetam (Levetiracetam) 100 Mg/Ml Radha, 15 ML GT BID, #780 03/20/14 [Phenobarbital] 64.8MG No Conflict Check, 64.8 BID, #60 03/20/14 Past Medical History Patient Family History: Patient reports no known family medical history. H&P Exam Vital Signs Vital Signs Date Time Temp Pulse Resp B/P (MAP) Pulse Ox O2 Delivery O2 Flow Rate FiO2 05/04/24 15:16 78 20 95/48 (64) 98 30 05/04/24 11:45 98.6 209.5 05/04/24 08:00 Mechanical Ventilator+ Labs/Xrays Labs Test 05/04/24 12:42 05/04/24 11:22 05/04/24 11:21 05/04/24 08:13 Range/Units POC Glucose 67 L 70-106 mg/dl Urine Color Yellow Yellow Urine Clarity Clear Clear Urine pH 6.0 5.0-9.0 Urine Specific [place] 1.021 1.001-1.035 Urine Protein Trace H Negative Urine Ketones 1+ H Negative Urine Blood 2+ H Negative /uL Urine Nitrite Negative Negative Urine Bilirubin Negative Negative Urine Urobilinogen Normal Negative mg/dL Urine Leukocyte Esterase Trace Negative /uL Urine RBC 21 0 - 3 /hpf Urine WBC 6 0 - 3 /hpf Urine Squamous Epithelial Cells None seen <5 /hpf Urine Bacteria Few H None Seen /hpf Urine Mucus Few None Seen Urine Sperm Present None Seen /hpf Urine Glucose Normal Normal mg/dL Lactic Acid Level 1.0 0.4-2.0 mmol/L Blood Gas Specimen Type Arterial Blood Gas Sample Site Right radial Blood Gas Patient Temperature 37.0 Arterial Blood Date Drawn [id number] Arterial Blood pH 7.405 7.350-7.450 Arterial Blood Partial Pressure CO2 37.8 35.0-48.0 mmHg Arterial Blood Partial Pressure O2 102.3 83.0-108.0 mmHg Arterial Blood HCO3 23.2 21.0-28.0 mmol/L Arterial Blood Oxygen Saturation 97.4 94.0-98.0 % Arterial Blood Base Excess -1.2 -2.0-3.0 mmol/L Arterial Blood Oxyhemoglobin 96.8 94.0-98.0 % Arterial Blood Carboxyhemoglobin 0.4 L 0.5-1.5 % Arterial Blood Methemoglobin 0.2 0.0-1.5 % Anderson Test Modified Blood Gas Total Hemoglobin 16.10 13.5-17.5 g/dL Blood Gas Set Respiration Rate 20.0 Blood Gas Modality Vent - ac FiO2 % 30.0 Blood Gas Tidal Volume 350.0 Blood Gas PEEP or CPAP 5.0 Test 05/04/24 03:00 05/03/24 08:33 05/03/24 04:45 05/02/24 21:01 Range/Units White Blood Count 5.4 # 4.4-10.8 10^3/uL Red Blood Count 3.77 L 4.5-5.90 10^6/uL Hemoglobin 12.2 L 13.5-17.5 g/dL Hematocrit 35.9 L 41.0-53.0 % Mean Corpuscular Volume 95.2 80.0-100.0 fL Mean Corpuscular Hemoglobin 32.3 H 28.0-32.0 pg Mean Corpuscular Hemoglobin Concent 33.9 32.0-36.0 g/dL Red Cell Distribution Width 13.7 11.8-14.3 % Platelet Count 197 140-450 10^3/uL Mean Platelet Volume 6.7 L 6.9-10.8 fL Neutrophils (%) (Auto) 63.8 37.0-80.0 % Lymphocytes (%) (Auto) 24.4 10.0-50.0 % Monocytes (%) (Auto) 10.6 0.0-12.0 % Eosinophils (%) (Auto) 0.9 0.0-7.0 % Basophils (%) (Auto) 0.3 0.0-2.0 % Neutrophils # (Auto) 3.5 1.6-8.6 10 ^3/uL Lymphocytes # (Auto) 1.3 0.4-5.4 10 ^3/uL Monocytes # (Auto) 0.6 0-1.3 10 ^3/uL Eosinophils # (Auto) 0 0-0.8 10 ^3/uL Basophils # (Auto) 0 0-0.2 10 ^3/uL Nucleated Red Blood Cells 0.1 % Sodium Level 147 #H 136-145 mmol/L Potassium Level 3.1 L 3.5-5.1 mmol/L Chloride Level 113 H 98-107 mmol/L Carbon Dioxide Level 24 20-31 mmol/L Anion Gap 10 5-15 Blood Urea Nitrogen 5 L 9-23 mg/dL Creatinine 0.52 L 0.700-1.30 mg/dL Glomerular Filtration Rate Calc 148 >90 mL/min BUN/Creatinine Ratio 9.6 L 10.0-20.0 Serum Glucose 91 74-106 mg/dL Calcium Level 8.4 L 8.7-10.4 mg/dL Magnesium Level 2.2 1.6-2.6 mg/dL Total Bilirubin 0.6 0.2-1.0 mg/dL Aspartate Amino Transferase (AST) 210 H 13-40 U/L Alanine Aminotransferase (ALT) 66 H 7-40 U/L Alkaline Phosphatase 191 H 46-116 U/L Total Protein 5.0 L 5.7-8.2 g/dL Albumin 2.9 L 3.2-4.8 g/dL Blood Gas Critical Value Read Back Yes Blood Gas Notified Whom Aminah huang. Blood Gas Notified Time [id number] Blood Gas Notified By Angelica solis Ammonia 40 H 11-32 umol/L Differential Total Cells Counted 100.0 100 Neutrophils % (Manual) 54 37.0-80.0 Band Neutrophils % (Manual) 10 Lymphocytes % (Manual) 31 10.0-50.0 Monocytes % (Manual) 5 0-12 Eosinophils % (Manual) 0 0-7 Basophils % (Manual) 0 0.0-2.0 Metamyelocytes % (manual) 0 Myelocytes % (Manual) 0 Promyelocytes % (Manual) 0 Blast Cells % (Manual) 0 Reactive Lymphocytes 0 Platelet Estimate Adequate Test 05/02/24 17:50 05/02/24 12:50 05/02/24 07:08 05/01/24 23:59 Range/Units Cortisol PM Sample 17.36 H 3.44-16.76 ug/dL Influenza Type A Antigen Negative Negative Influenza Type B Antigen Negative Negative SARS-CoV-2 Antigen (Rapid) Negative NEGATIVE Blood Gas Spontaneous Rate 20 Test 05/01/24 21:35 05/01/24 21:25 Range/Units Blood Gas Liter Flow 60.00 Prothrombin Time 11.8 9.3-11.8 sec Prothrombin Time INR 1.12 0.9-1.15 Activated Partial Thromboplast Time 43.4 H 24.5-34.5 SEC Thyroid Stimulating Hormone (TSH) 0.01 L 0.55-4.78 uIU/mL Free Thyroxine (T4) Calculated 1.20 0.89-1.76 ng/dL Plasma/Serum Blood Alcohol < 3.0 <10 mg/dL Microbiology Date/Time Source Procedure Growth Status 05/03/24 16:10 Nose MRSA Screen - Final Complete 05/02/24 17:50 Blood Blood Culture - Preliminary NO GROWTH AFTER 24 HOURS OF INCUBATION. Resulted 05/02/24 16:20 Voided Urine Urine Culture - Preliminary Resulted 05/01/24 23:40 Sputum Gram Stain - Final Resulted 05/01/24 23:40 Sputum Respiratory Culture - Preliminary Resulted Assessment/Plan Problem List: (1) Paraphimosis Plan manual reduction of paraphimosis. tolerated well Plan discussed with: Other PRECIOUS TSANG NP May 04, 2024 16:28
--- NOTE | 2024-05-04 20:35 | DVHPNRES ---
Progress Note Date Seen: May 04, 2024 Resident Creating Document: TOMMY RENEE RESIDENT Medical Necessity Reason Pt with a Central, PICC or Fol: Yes The following are medically ne: Central Line, Solitario Catheter Subjective Review of Systems This is a 19 Year old male patient with PMHx of cerebral palsy, focal seizures, wheelchair-bound, nonverbal, hypothyroidism, adrenal insufficiency, cognitive delay, SIADH, hyperammonemia who presented to the ER with a chief complaint of generalized weakness and discoloration of the lips. Per his aunt, who is the legal guardian, patient was experiencing cough/cold and fever and later became weak in his lips starting to get bluish therefore they decided to check into the ER. On arrival patient was afebrile, pulse 1 1 7, respiratory 25, blood pressure 77/38 mmHg, saturating 84. %. Labs showed WBC 4, sodium 132, potassium 3.3, lactic acid 3.2, cortisol 17, ammonia 71, TSH 0.01. Patient was intubated on 05/01 and the bronchus completed on 05/02 which showed right-sided atelectasis and mucus plugging in the R4 to [place] region. He was started on IV Zosyn, Keppra, phenobarbital, clobazam and levothyroxine and hydrocortisone 10 mg b.i.d.. Patient experienced code blue on the night of 05/03 and he received 9 doses of epinephrine, 1 dose of sodium bicarb and 1 mL of calcium chloride. Eleven rounds of CPR were performed and the patient achieved ROSC. Head CT completed which showed mild ventriculomegaly. Chest x-ray showed left lung white out, chest tube was placed. Past surgical history: Corpus colostomy in 11/22, G-tube as a child Home medications: Levothyroxine 137 mcg, phenobarbital, clobazam, Keppra, rufinamide, Cortef 10 mg, uri na packet bid Patient seen and examined at the bedside. Patient is on Levophed, fentanyl, Versed. Has a right fem CBC. Overnight temperature was 99.3. Chest x-ray shows bilateral patchy opacity. Right lower opacity improved. Left whiteout improved. Chest tube seen. Respiratory culture shows beta-hemolytic streptococci. LFTs up trending. Urology consulted for swollen foreskin. Objective vital signs Vital Sign Date Time Temp Pulse Resp B/P (MAP) Pulse Ox O2 Delivery O2 Flow Rate FiO2 05/04/24 20:19 66 20 100/61 (74) 99 30 05/04/24 19:30 98.1 208.6 05/04/24 18:00 Mechanical Ventilator+ Total Intake and Output 05/03/24 05/03/24 05/04/24 15:00 23:00 07:00 Intake Total 701 ml 763.25 ml 1159.00 ml Output Total 755 ml 2070 ml Balance 701 ml 8.25 ml -911.00 ml medications Current Medications Medications Dose Ordered Sig/Adri Route Start Time Stop Time Status Last Admin Dose Admin Propofol 100 ml @ 1.68 mls/hr Q24H IV 05/01/24 22:15 05/01/24 22:15 1.68 MLS/HR Norepinephrine Bitartrate 250 ml @ 3.75 mls/hr Q24H IV 05/01/24 22:30 05/04/24 07:40 11.25 MLS/HR Acetaminophen 650 mg Q6HP PRN PO 05/01/24 23:30 05/02/24 11:36 650 MG Midazolam HCl 50 ml @ 1 mls/hr Q24H IV 05/02/24 06:15 05/04/24 15:16 8 MLS/HR Piperacillin Sod/ Tazobactam Sod 100 ml @ 25 mls/hr Q8HR IV 05/02/24 08:00 05/04/24 14:17 25 MLS/HR Ipratropium [place] 0.5 mg Q4HPRN PRN NEB 05/02/24 14:15 05/04/24 18:57 0.5 MG Fentanyl Citrate 250 ml @ 2.5 mls/hr Q24H IV 05/02/24 15:00 05/04/24 20:03 5 MLS/HR Phenobarbital 32.4 mg Q8HR PO 05/02/24 22:00 05/04/24 14:56 32.4 MG Pantoprazole Sodium 40 mg DAILY IV 05/03/24 10:00 05/04/24 09:31 40 MG Enoxaparin Sodium 30 mg DAILY SC 05/03/24 10:00 05/04/24 09:31 30 MG Levalbuterol HCl 0.625 mg Q4HPRN PRN NEB 05/02/24 16:15 05/04/24 18:57 0.625 MG Levetiracetam 100 ml @ 400 mls/hr BID IV 05/03/24 22:00 05/04/24 09:29 400 MLS/HR Patient Own Medication 5 ml BIDBL PEG 05/04/24 08:00 05/11/24 08:00 05/04/24 16:58 5 ML Diagnostic Test (Pha) 1 strip IQ4HR 05/04/24 12:00 05/04/24 17:01 1 STRIP Dextrose 50 ml UD PRN IV 05/04/24 11:00 Enteral Nutritional Formula 1,000 ml 30ML/HR GT 05/04/24 13:15 05/04/24 13:50 1,000 ML Levothyroxine Sodium 112 mcg QAM@0600 PO 05/05/24 06:00 Enteral Nutritional Formula 1,000 ml 30ML/HR GT 05/04/24 13:30 Levothyroxine Sodium 25 mcg QAM@0600 PO 05/05/24 06:00 Hydrocortisone Sodium Succinate 25 mg Q12HR IV 05/04/24 14:45 05/04/24 14:59 25 MG Examination Young male patient lying in bed, intubated and mechanically ventilated General: afebrile, palor, mucosae are moist Cardiovascular: Regular S1 and S2. No murmurs, gallops or rubs. No JVD elevation. No pedal edema Respiratory: Decreased bibasilar breath sounds, saturating 95 on 30% FiO2 Abdomen: Soft, nontender, nondistended, hypoactive bowel sounds, no rebound tenderness, no organomegaly, no masses. Peg tube seen Genitourinary: Deferred MSK/skin: Skin is dry and warm Neurological: No motor, no sensitive deficits, normal speech. Pupils are isocoric and reactive. laboratory and microbiology Laboratory Tests 05/04/24 03:00 Test 05/04/24 03:00 Range/Units Serum Glucose 91 74-106 mg/dL Microbiology Date/Time Source Procedure Growth Status 05/03/24 16:10 Nose MRSA Screen - Final Complete 05/02/24 17:50 Blood Blood Culture - Preliminary NO GROWTH AFTER 48 HOURS OF INCUBATION. Resulted 05/02/24 16:20 Voided Urine Urine Culture - Preliminary Resulted 05/01/24 23:40 Sputum Gram Stain - Final Resulted 05/01/24 23:40 Sputum Respiratory Culture - Preliminary Resulted Labs and/or images reviewed: Labs reviewed by me, Image(s) reviewed by me Problem List/Assessment/Plan Problem List/Assessment/Plan NEUROLOGY Altered level of consciousness secondary to sepsis secondary to pneumonia Acute metabolic encephalopathy secondary to hyperammonemia and sepsis Focal seizure disorder Wheelchair-bound Nonverbal Cognitive delay Corpus colostomy 11/[address] completed 05/01, shows mild ventriculomegaly Head CT completed 05/04 shows stable mild ventriculomegaly Continue IV levetiracetam, phenobarbital, midazolam CARDIOVASCULAR Status post cardiac arrest 05/03 Lactic acidosis RESPIRATORY Septic shock secondary to pneumonia, community-acquired, Gram-positive and negative Acute hypoxic respiratory failure secondary to above Acute hypercarbic respiratory failure secondary to above Probable aspiration pneumonia Right-sided traumatic hemothorax status post chest tube placement Atelectasis Respiratory acidosis-resolved Bronchoscopy completed 05/02 shows right lower lobe atelectasis and R4-R10 mucus plug. 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 ENDO Adrenal insufficiency Hyponatremia/SIADH Hypothyroidism Continue IV levothyroxine 137 mcg and 25 mcg daily Continue hydrocortisone 25 mg q.12 daily, patient takes 10 mg p.o. at home ID Septic shock secondary to pneumonia Preliminary blood culture negative Respiratory culture shows beta-hemolytic group F Streptococcus Urine culture negative Continue IV Zosyn daily starting 05/02 HEM-ONCO LINES Intubation 05/01 Right femoral CVC line 05/01 DRIPS LEVOPHED 4 -> 2 FENTANYL 5 VERSED 7 NUTRITION: Jevity 1.2 DIMPLE 30 mL/hour DVT: Lovenox 30 mg sc daily End of note Goals of care/advance care planning; FULL CODE; discussed on for 24 minutes. PUD prophylaxis: Continue pantoprazole 40 mg daily IV DVT prophylaxis: Continue enoxaparin 30 mg daily SC Plan discussed with patient's aunt at bedside in which all questions have been answered Case discussed with Dr. Barroso Critical care time including chart review, discussing with patient's family excluding procedure: 87 minutes Plan discussed with: Patient, Other (aunt at the bedside) My Orders My Orders Orders - TOMMY RENEE RESIDENT Procedure Category Date Status Time Glucose Blood PHA 05/04/24 In Process (Accu-Chek Comfort 12:00 Dextrose 50% Syringe PHA 05/04/24 In Process 11:00 Consult For Nutrition NOURISH 05/04/24 Transmitted 11:04 Nutritional PHA 05/04/24 In Process Supplements (Jevity 13:15 Hydrocortisone PHA 05/04/24 In Process Succinate Inj 14:45 Complete Blood Count LAB 05/05/24 Verified 04:00 Comprehensive LAB 05/05/24 Verified Metabolic Panel 04:00 Chest Xray 1 View XY 05/05/24 Logged 04:00 Dietary Evaluation Review Comments: 1. Recommend Jevity 1.2 @30ml/hr providing 40g protein, 864ckal which satifies his needs at 60% protein and 77% energy. 2. If pt is off vent, advance diet to pureed diet. 3. If blood glucose elevated, switch TF to Glucerna 1.2 30ml/hr (43gProtein 864 kcal), 4. If blood glucose elevated, advance diet to CCHO-60 pureed diet. Expected Outcomes/Goals: Meet 75% of his needs, graudla weight loss.Advance to pureed diet. Date of Service: May 04, 2024 Billing Provider: KAIA BARROSO MD Common Visit Codes: 90505-IFFILRRZ CARE 30-74 MIN, 30651-BFHEOWUT CARE-EACH +30MIN TOMMY RENEE May 04, 2024 20:35 KAIA BARROSO MD May 05, 2024 15:43
--- NOTE | 2024-05-04 21:50 | BSKYNEURO ---
[facility] Note # Demographics Consult Type: General Neurology Patient Location: Inpatient First Name: Agustin Last Name: Ramsey Date of : 2005 Age: 19 Gender: Male Facility: [facility] Time of Initial Page ( Time): 05/04/2024, 21:15 Time of Return Call (Love Time): 05/04/2024, 21:16 # HPI History: 19-year-old with the history of cerebral palsy had cardiac arrest on 05/02 and was down for about 28 minutes before return to spontaneous circulation. she's currently intubated and sedated with Versed and Fentanyl. he has had some seizure like activity and is currently on Keppra 1500 mg twice a day and phenobarbital 32.4 mg every 8 hours # Exam Time of Exam (Love ): 05/04/2024, 21:19 Mental Status: - comatose Language: non verbal Motor: minimum to no spontaneous movement Cerebellar: cant assess # H-FH-SH Past Medical History: - seizure cerebral palsy Medications: onfi,keppra # Data Head CT: - no bleed # Assessment Impression: - Altered Mental Status Possible anoxic brain injury and seizures vs myoclonus # Plan Imaging: (urgency: routine): - MRI Brain without contrast Other: - If patient has any neurological deterioration please call me back immediately Additional Recommendations: If MRI shows diffuse anoxic injury then goals of care can be discussed with family. If no anoxic injury then would transfer to higher level of care where continuous EEG monitoring can be performed. Cont Keppra and Phenobarb at current doses for now # Demographics First Name: Agustin Last Name: Ramsey Facility: [facility] Yes MAHAD SAUER Jr., MD May 04, 2024 21:50
[2024-05-04] MEDS ORDERED: HYDROCORTISONE SOD SUCC 100 MG/2ML INJ VIAL IV SCH (22:00)
[2024-05-04 22:32] LABS: Potassium 3.6 mmol/L (3.5-5.1)
[2024-05-04 22:33] LABS: Anion Gap 6 (5-15); Carbon Dioxide 25 mmol/L (20-31)
[2024-05-04 22:38] LABS: BUN/Creatinine Ratio 10.4 (10.0-20.0)
[2024-05-04 22:39] LABS: Magnesium 1.7 mg/dL (1.6-2.6)
[2024-05-04 22:40] LABS: Blood Urea Nitrogen 5 mg/dL (9-23); Calcium 8.1 mg/dL (8.7-10.4); Chloride 115 mmol/L (98-107); Glucose 113 mg/dL (74-106); Sodium 146 mmol/L (136-145)
[2024-05-05] VITALS (104 sets, daily range): BP systolic 78–141; BP diastolic 46–97; PULSE 53–96; RESP 12–24; TEMP 97.6–99.3; O2SAT 95–100
--- NOTE | 2024-05-05 05:06 | DVH ---
CHEST RADIOGRAPH Indication: f/u Technique: Single frontal view of the chest was obtained COMPARISON: XY CHEST XRAY 1 VIEW on DOS: 05/04/24, XY CHEST PORTABLE on DOS: 05/03/24, XY CHEST SILAS BLE on DOS: 05/03/24, XY CHEST PORTABLE on DOS: 05/02/24, XY CHEST XRAY 1 VIEW on DOS: 05/01/24 FINDINGS: Lines and Tubes: Endotracheal tube and left chest tube in satisfactory position. Lungs: Right lung airspace disease. Pleura: No effusion. No pneumothorax. Cardiomediastinal contours: Unremarkable Bones: Unremarkable IMPRESSION: Lines and tubes in satisfactory position. No significant interval change.
[2024-05-05] MEDS: LEVOTHYROXINE SODIUM 25 MCG TAB PO SCH (05:53)
[2024-05-05] MEDS: LEVOTHYROXINE SODIUM 112 MCG TAB PO SCH (05:53)
[2024-05-05] MEDS ORDERED: LEVOTHYROXINE SODIUM 25 MCG TAB PO SCH (06:00)
[2024-05-05] MEDS ORDERED: LEVOTHYROXINE SODIUM 112 MCG TAB PO SCH (06:00)
[2024-05-05 06:44] LABS: Basophils # (auto) 0 10 ^3/uL (0-0.2); Basophils % (auto) 0.1 % (0.0-2.0); Eosinophils # (auto) 0 10 ^3/uL (0-0.8); Eosinophils % (auto) 0.1 % (0.0-7.0); Hemoglobin 10.8 g/dL (13.5-17.5); Lymphocytes # (auto) 0.6 10 ^3/uL (0.4-5.4); Lymphocytes % (auto) 16.9 % (10.0-50.0); Mean Corpuscular Hgb Conc. 33.7 g/dL (32.0-36.0); Monocytes # (auto) 0.3 10 ^3/uL (0-1.3); Monocytes % (auto) 9.1 % (0.0-12.0); Neutrophils # (auto) 2.7 10 ^3/uL (1.6-8.6); Neutrophils % (auto) 73.8 % (37.0-80.0); Nucleated Red Blood Cells % 0.1 %; Platelet Count (auto) 176 10^3/uL (140-450); Red Blood Cells 3.37 10^6/uL (4.5-5.90); Red Cell Distribution Width 14.1 % (11.8-14.3); White Blood Cell 3.7 10^3/uL (4.4-10.8)
[2024-05-05 06:55] LABS: Anion Gap 8 (5-15); Carbon Dioxide 26 mmol/L (20-31); Magnesium 1.9 mg/dL (1.6-2.6)
[2024-05-05 06:56] LABS: Bilirubin, Total 0.4 mg/dL (0.2-1.0)
[2024-05-05 07:06] LABS: Alanine Aminotransferase 57 U/L (7-40); Albumin 2.8 g/dL (3.2-4.8); Alkaline Phosphatase 303 U/L (46-116); Aspartate Aminotransferase 143 U/L (13-40); BUN/Creatinine Ratio 10.9 (10.0-20.0); Blood Urea Nitrogen < 5 mg/dL (9-23); Calcium 8.1 mg/dL (8.7-10.4); Chloride 112 mmol/L (98-107); Glucose 110 mg/dL (74-106); Potassium 3.4 mmol/L (3.5-5.1); Sodium 146 mmol/L (136-145)
[2024-05-05 08:21] LABS: Base Excess 0.6 mmol/L (-2.0-3.0)
[2024-05-05] MEDS: POTASSIUM CHL 20MEQ/100ML 100 ML IV SCH (11:46)
--- NOTE | 2024-05-05 12:43 | ECG ---
[facility] Test Date: 2024-05-02 Test Time: 20:28:40 Pat Name: BRANDIE COMBS Department: ER Room: [address] [place] [address] A Gender: M Renal Dialysis Rn: HEAVENLY : 2005 Requested By: RAMIREZ LOWERY Order Number: [id number] Reading MD: Bruce Mcadams Measurements Intervals [place] Rate: 143 P: 67 MN: 122 QRS: 55 QRSD: 88 T: 37 QT: 302 QTc: 466 Interpretive Statements Sinus tachycardia Low voltage, extremity and precordial leads Electronically Signed On 05-05-2024 17:54:51 PST by Bruce Mcadams Please click the below link to view image of tracing.
--- NOTE | 2024-05-05 16:16 | DVH ---
INDICATION: liver failure TECHNIQUE: Multiple real-time sonographic images of the abdomen were obtained. COMPARISON: None FINDINGS: Liver is homogenous in echogenicity. The liver measures 14.8 cm. No intrahepatic biliary ductal dilatation is noted. The gallbladder wall measures 0.2 cm and is unremarkable. No gallstones or gallbladder sludge. No pericholecystic fluid or edema. The common bile duct is not clearly visualized. The right kidney measures 10.2 cm. No hydronephrosis. The pancreas is not well visualized due to obscuration from bowel gas. The visualized portions of the IVC and aorta are grossly unremarkable. IMPRESSION: 1. No evidence of cholecystitis.
--- NOTE | 2024-05-05 18:07 | DVHPNRES ---
Progress Note Date Seen: May 05, 2024 Resident Creating Document: TOMMY RENEE RESIDENT Medical Necessity Reason Pt with a Central, PICC or Fol: Yes The following are medically ne: Central Line, Solitario Catheter Subjective Review of Systems This is a 19 Year old male patient with PMHx of cerebral palsy, focal seizures, wheelchair-bound, nonverbal, hypothyroidism, adrenal insufficiency, cognitive delay, SIADH, hyperammonemia who presented to the ER with a chief complaint of generalized weakness and discoloration of the lips. Per his aunt, who is the legal guardian, patient was experiencing cough/cold and fever and later became weak in his lips starting to get bluish therefore they decided to check into the ER. On arrival patient was afebrile, pulse 1 1 7, respiratory 25, blood pressure 77/38 mmHg, saturating 84. %. Labs showed WBC 4, sodium 132, potassium 3.3, lactic acid 3.2, cortisol 17, ammonia 71, TSH 0.01. Patient was intubated on 05/01 and the bronchus completed on 05/02 which showed right-sided atelectasis and mucus plugging in the R4 to [place] region. He was started on IV Zosyn, Keppra, phenobarbital, clobazam and levothyroxine and hydrocortisone 10 mg b.i.d.. Patient experienced code blue on the night of 05/03 and he received 9 doses of epinephrine, 1 dose of sodium bicarb and 1 mL of calcium chloride. Eleven rounds of CPR were performed and the patient achieved ROSC. Head CT completed which showed mild ventriculomegaly. Chest x-ray showed left lung white out, chest tube was placed. Past surgical history: Corpus colostomy in 11/22, G-tube as a child Home medications: Levothyroxine 137 mcg, phenobarbital, clobazam, Keppra, rufinamide, Cortef 10 mg, uri na packet bid Patient seen and examined at the bedside. Patient is on Levophed, fentanyl, Versed. Has a right fem CBC. Overnight temperature was 99.3. Chest x-ray shows bilateral patchy opacity. Right lower opacity improved. Left whiteout improved. Chest tube seen. Respiratory culture shows beta-hemolytic streptococci. LFTs up trending. Urology consulted for swollen foreskin. 05/05 -overnight blue geraldine Neurology saw the patient, recommended MRI which the patient could not tolerate. T-max 99.0 F, intermittent bradycardia into 50s. Liver ultrasound is unremarkable. Patient is off Levophed since 4:00 a.m. on fentanyl and Versed. CPAP trial in the a.m.. Return of sedation in a.m., fentanyl 1st 10 Versed, add patient's seizure medications. Objective vital signs Vital Sign Date Time Temp Pulse Resp B/P (MAP) Pulse Ox O2 Delivery O2 Flow Rate FiO2 05/05/24 17:15 72 19 103/73 (83) 98 05/05/24 16:01 30 05/05/24 16:00 Mechanical Ventilator+ 05/05/24 12:00 97.6 97.6 Total Intake and Output 05/04/24 05/04/24 05/05/24 15:00 23:00 07:00 Intake Total 1357.00 ml 474.0 ml 609.0 ml Output Total 660 ml 2080 ml Balance 1357.00 ml -186.0 ml -1471.0 ml medications Current Medications Medications Dose Ordered Sig/Adri Route Start Time Stop Time Status Last Admin Dose Admin Propofol 100 ml @ 1.68 mls/hr Q24H IV 05/01/24 22:15 05/01/24 22:15 1.68 MLS/HR Norepinephrine Bitartrate 250 ml @ 3.75 mls/hr Q24H IV 05/01/24 22:30 05/04/24 07:40 11.25 MLS/HR Acetaminophen 650 mg Q6HP PRN PO 05/01/24 23:30 05/02/24 11:36 650 MG Midazolam HCl 50 ml @ 1 mls/hr Q24H IV 05/02/24 06:15 05/05/24 15:15 7 MLS/HR Piperacillin Sod/ Tazobactam Sod 100 ml @ 25 mls/hr Q8HR IV 05/02/24 08:00 05/05/24 14:00 25 MLS/HR Ipratropium [place] 0.5 mg Q4HPRN PRN NEB 05/02/24 14:15 05/04/24 18:57 0.5 MG Fentanyl Citrate 250 ml @ 2.5 mls/hr Q24H IV 05/02/24 15:00 05/04/24 20:03 5 MLS/HR Phenobarbital 32.4 mg Q8HR PO 05/02/24 22:00 05/05/24 15:18 32.4 MG Pantoprazole Sodium 40 mg DAILY IV 05/03/24 10:00 05/05/24 11:46 40 MG Enoxaparin Sodium 30 mg DAILY SC 05/03/24 10:00 05/05/24 11:47 30 MG Levalbuterol HCl 0.625 mg Q4HPRN PRN NEB 05/02/24 16:15 05/04/24 18:57 0.625 MG Levetiracetam 100 ml @ 400 mls/hr BID IV 05/03/24 22:00 05/05/24 10:00 400 MLS/HR Patient Own Medication 5 ml BIDBL PEG 05/04/24 08:00 05/11/24 08:00 05/05/24 12:00 5 ML Diagnostic Test (Pha) 1 strip IQ4HR 05/04/24 12:00 05/05/24 16:27 1 STRIP Dextrose 50 ml UD PRN IV 05/04/24 11:00 Enteral Nutritional Formula 1,000 ml 30ML/HR GT 05/04/24 13:15 05/04/24 13:50 1,000 ML Enteral Nutritional Formula 1,000 ml 30ML/HR GT 05/04/24 13:30 Hydrocortisone Sodium Succinate 25 mg Q12HR IV 05/04/24 14:45 05/05/24 11:46 25 MG Levothyroxine Sodium 25 mcg QAM@0600 PO 05/05/24 06:00 05/05/24 05:53 25 MCG Levothyroxine Sodium 137 mcg QAM@0600 PO 05/06/24 06:00 Examination Young male patient lying in bed, intubated and mechanically ventilated, RASS -3 General: afebrile, palor, mucosae are moist Cardiovascular: Regular S1 and S2. No murmurs, gallops or rubs. No JVD elevation. No pedal edema Respiratory: Decreased bibasilar breath sounds, saturating 95 on 30% FiO2 Abdomen: Soft, nontender, nondistended, hypoactive bowel sounds, no rebound tenderness, no organomegaly, no masses. Peg tube seen Genitourinary: Deferred MSK/skin: Skin is dry and warm Neurological: No motor, no sensitive deficits, normal speech. Pupils are isocoric and reactive. laboratory and microbiology Laboratory Tests 05/05/24 05:30 Test 05/05/24 05:30 Range/Units Serum Glucose 110 H 74-106 mg/dL Microbiology Date/Time Source Procedure Growth Status 05/03/24 16:10 Nose MRSA Screen - Final Complete 05/02/24 17:50 Blood Blood Culture - Preliminary NO GROWTH AFTER 72 HOURS OF INCUBATION. Resulted 05/02/24 16:20 Voided Urine Urine Culture - Final Complete 05/01/24 23:40 Sputum Gram Stain - Final Resulted 05/01/24 23:40 Sputum Respiratory Culture - Preliminary Resulted Labs and/or images reviewed: Labs reviewed by me, Image(s) reviewed by me Problem List/Assessment/Plan Problem List/Assessment/Plan NEUROLOGY Altered level of consciousness secondary to sepsis secondary to pneumonia Acute metabolic encephalopathy secondary to hyperammonemia and sepsis Focal seizure disorder Wheelchair-bound Nonverbal Cognitive delay Corpus colostomy 11/[address] completed 05/01, shows mild ventriculomegaly Head CT completed 05/04 shows stable mild ventriculomegaly Continue IV levetiracetam, phenobarbital, midazolam Neurology-blue geraldine consulted, recommended MRI brain which Patient did not tolerate CARDIOVASCULAR Status post cardiac arrest 05/03 Lactic acidosis RESPIRATORY Septic shock secondary to pneumonia, community-acquired, Gram-positive and negative Acute hypoxic respiratory failure secondary to above Acute hypercarbic respiratory failure secondary to above Probable aspiration pneumonia Right-sided traumatic hemothorax status post chest tube placement Atelectasis Respiratory acidosis-resolved Bronchoscopy completed 05/02 shows right lower lobe atelectasis and R4-R10 mucus plug. Continue nebulized treatment with levalbuterol and ipratropium GI Hyperammonemia Shock liver Status post G-tube as a child Transaminitis Monitor Liver ultrasound unremarkable /KIDNEY Paraphimosis Urology consulted-manual reduction of paraphimosis done tolerated well. ENDO Adrenal insufficiency Hyponatremia/SIADH Hypothyroidism Continue IV levothyroxine 137 mcg and 25 mcg daily Continue hydrocortisone 25 mg q.12 daily, patient takes 10 mg p.o. at home ID Septic shock secondary to pneumonia Preliminary blood culture negative Respiratory culture shows beta-hemolytic group F Streptococcus Urine culture negative Continue IV Zosyn daily starting 05/02 HEM-ONCO LINES Intubation 05/01 Right femoral CVC line 05/01 DRIPS LEVOPHED of since 05/05 4:00 a.m. FENTANYL 50 VERSED 7 NUTRITION: Jevity 1.2 DIMPLE 30 mL/hour DVT: Lovenox 30 mg sc daily Last bowel movement: 05/04 small End of note Goals of care/advance care planning; FULL CODE; discussed on for 24 minutes. PUD prophylaxis: Continue pantoprazole 40 mg daily IV DVT prophylaxis: Continue enoxaparin 30 mg daily SC Plan discussed with patient's aunt at bedside in which all questions have been answered Case discussed with Dr. Barroso. CPAP trial in the a.m.. Critical care time including chart review, discussing with patient's family excluding procedure: 81 minutes Plan discussed with: Patient, Other (aunt at the bedside) My Orders My Orders Orders - TOMMY RENEE Procedure Category Date Status Time Chest Xray 1 View XY 05/05/24 Resulted 04:00 Abg W/ Co-Ox RT 05/05/24 Logged 04:00 Levothyroxine Tablet PHA 05/05/24 In Process (Synthroid Tablet) 06:00 Levothyroxine Tablet PHA 05/06/24 In Process (Synthroid Tablet) 06:00 Dietary Evaluation Review Comments: 1. Recommend Jevity 1.2 @30ml/hr providing 40g protein, 864ckal which satifies his needs at 60% protein and 77% energy. 2. If pt is off vent, advance diet to pureed diet. 3. If blood glucose elevated, switch TF to Glucerna 1.2 30ml/hr (43gProtein 864 kcal), 4. If blood glucose elevated, advance diet to CCHO-60 pureed diet. Expected Outcomes/Goals: Meet 75% of his needs, graudla weight loss.Advance to pureed diet. Date of Service: May 05, 2024 Billing Provider: KAIA BARROSO MD Common Visit Codes: [id number] CARE 30-74 MIN, [id number] CARE-EACH +30MIN TOMMY RENEE May 05, 2024 18:07 KAIA BARROSO MD May 06, 2024 14:23
[2024-05-06] VITALS (104 sets, daily range): BP systolic 81–139; BP diastolic 40–97; PULSE 48–117; RESP 13–29; TEMP 97–99.7; O2SAT 74–100
[2024-05-06 03:21] LABS: Basophils # (auto) 0 10 ^3/uL (0-0.2); Basophils % (auto) 0.2 % (0.0-2.0); Eosinophils # (auto) 0 10 ^3/uL (0-0.8); Eosinophils % (auto) 0.1 % (0.0-7.0); Hemoglobin 10.9 g/dL (13.5-17.5); Lymphocytes # (auto) 0.8 10 ^3/uL (0.4-5.4); Lymphocytes % (auto) 19.1 % (10.0-50.0); Mean Corpuscular Hgb Conc. 35.2 g/dL (32.0-36.0); Mean Corpuscular Volume 93.6 fL (80.0-100.0); Monocytes # (auto) 0.4 10 ^3/uL (0-1.3); Monocytes % (auto) 9.6 % (0.0-12.0); Nucleated Red Blood Cells % 0.1 %; Platelet Count (auto) 163 10^3/uL (140-450); Red Blood Cells 3.31 10^6/uL (4.5-5.90); Red Cell Distribution Width 13.7 % (11.8-14.3); White Blood Cell 4.2 10^3/uL (4.4-10.8)
[2024-05-06 03:36] LABS: Anion Gap 7 (5-15); BUN/Creatinine Ratio 13.3 (10.0-20.0); Carbon Dioxide 26 mmol/L (20-31); Glucose 91 mg/dL (74-106); Magnesium 1.9 mg/dL (1.6-2.6); Potassium 3.6 mmol/L (3.5-5.1); Sodium 144 mmol/L (136-145)
[2024-05-06 03:37] LABS: Bilirubin, Total 0.5 mg/dL (0.2-1.0)
[2024-05-06 03:42] LABS: Alanine Aminotransferase 53 U/L (7-40); Albumin 3.2 g/dL (3.2-4.8); Alkaline Phosphatase 296 U/L (46-116); Aspartate Aminotransferase 103 U/L (13-40); Blood Urea Nitrogen 6 mg/dL (9-23); Calcium 8.4 mg/dL (8.7-10.4); Chloride 111 mmol/L (98-107); Total Protein 5.5 g/dL (5.7-8.2)
[2024-05-06] MEDS: LEVOTHYROXINE SODIUM 112 MCG TAB PO SCH (06:29)
--- NOTE | 2024-05-06 06:45 | DVH ---
CHEST RADIOGRAPH Indication: Follow up Technique: Single frontal view of the chest was obtained Comparison: XY CHEST XRAY 1 VIEW on DOS: 05/05/24, XY CHEST XRAY 1 VIEW on DOS: 05/04/24, XY CHEST PO RTABLE on DOS: 05/03/24 IMPRESSION: The heart appears stable in size. Endotracheal tube appears unchanged in satisfactory position. Patc hy airspace opacities in the right lung appear similar. There is mild pulmonary vascular congestion. Left pleural catheter. No discrete pneumothorax appreciated.
[2024-05-06 08:08] LABS: Base Excess 0.8 mmol/L (-2.0-3.0)
[2024-05-06] MEDS: POTASSIUM CHL 20MEQ/100ML 100 ML IV ONE ×2 (08:51→23:27)
[2024-05-06] MEDS: [UNRECOGNIZED DRUG - OTHER] PO SCH (12:33)
[2024-05-06] MEDS: RUFINAMIDE 40 MG/ML PO SCH (12:35)
[2024-05-06] MEDS: CLOBAZAM 2.5 MG/ML PO SCH (12:38)
[2024-05-06] MEDS: FUROSEMIDE 20 MG/2 ML VIAL IV ONE ×2 (14:49→15:42)
[2024-05-06] MEDS: FUROSEMIDE 20 MG/2 ML VIAL ONE (14:49)
[2024-05-06] MEDS: EPINEPHrine HCL 0.5 ML NEB ONE (14:59)
--- NOTE | 2024-05-06 15:24 | ECG ---
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
--- NOTE | 2024-05-06 18:20 | DVHPNRES ---
Progress Note Date Seen: May 06, 2024 Resident Creating Document: TOMMY RENEE RESIDENT Medical Necessity Reason Pt with a Central, PICC or Fol: Yes The following are medically ne: Central Line, Solitario Catheter Subjective Review of Systems This is a 19 Year old male patient with PMHx of cerebral palsy, focal seizures, wheelchair-bound, nonverbal, hypothyroidism, adrenal insufficiency, cognitive delay, SIADH, hyperammonemia who presented to the ER with a chief complaint of generalized weakness and discoloration of the lips. Per his aunt, who is the legal guardian, patient was experiencing cough/cold and fever and later became weak in his lips starting to get bluish therefore they decided to check into the ER. On arrival patient was afebrile, pulse 1 1 7, respiratory 25, blood pressure 77/38 mmHg, saturating 84. %. Labs showed WBC 4, sodium 132, potassium 3.3, lactic acid 3.2, cortisol 17, ammonia 71, TSH 0.01. Patient was intubated on 05/01 and the bronchus completed on 05/02 which showed right-sided atelectasis and mucus plugging in the R4 to [place] region. He was started on IV Zosyn, Keppra, phenobarbital, clobazam and levothyroxine and hydrocortisone 10 mg b.i.d.. Patient experienced code blue on the night of 05/03 and he received 9 doses of epinephrine, 1 dose of sodium bicarb and 1 mL of calcium chloride. Eleven rounds of CPR were performed and the patient achieved ROSC. Head CT completed which showed mild ventriculomegaly. Chest x-ray showed left lung white out, chest tube was placed. Past surgical history: Corpus colostomy in 11/22, G-tube as a child Home medications: Levothyroxine 137 mcg, phenobarbital, clobazam, Keppra, rufinamide, Cortef 10 mg, uri na packet bid Patient seen and examined at the bedside. Patient is on Levophed, fentanyl, Versed. Has a right fem CBC. Overnight temperature was 99.3. Chest x-ray shows bilateral patchy opacity. Right lower opacity improved. Left whiteout improved. Chest tube seen. Respiratory culture shows beta-hemolytic streptococci. LFTs up trending. Urology consulted for swollen foreskin. 05/05 -overnight blue geraldine Neurology saw the patient, recommended MRI which the patient could not tolerate. T-max 99.0 F, intermittent bradycardia into 50s. Liver ultrasound is unremarkable. Patient is off Levophed since 4:00 a.m. on fentanyl and Versed. CPAP trial in the a.m.. Return of sedation in a.m., fentanyl 1st 10 Versed, add patient's seizure medications. 05/06 - patient seen and examined at the bedside. Sedation was turned off and patient was started on his home meds including clobazam, rufinamide and diacomit. Chest tube draining 25 cc. Completed CPAP trial, successfully extubated 05/06. Received 2 doses of IV Lasix 20 mg. Patient is on BiPAP starting 4:00 p.m. Spoke to [facility], willing to accept pending bed availability. Objective vital signs Vital Sign Date Time Temp Pulse Resp B/P (MAP) Pulse Ox O2 Delivery O2 Flow Rate FiO2 05/06/24 16:32 95 05/06/24 16:30 14 05/06/24 16:22 97 Facial BiPAP Mask 70 05/06/24 15:53 106/70 05/06/24 11:15 99.0 210.2 Total Intake and Output 05/05/24 05/05/24 05/06/24 15:00 23:00 07:00 Intake Total 613.5 ml 521.5 ml 480.0 ml Output Total 460 ml 370 ml Balance 613.5 ml 61.5 ml 110.0 ml medications Current Medications Medications Dose Ordered Sig/Adri Route Start Time Stop Time Status Last Admin Dose Admin Propofol 100 ml @ 1.68 mls/hr Q24H IV 05/01/24 22:15 05/01/24 22:15 1.68 MLS/HR Norepinephrine Bitartrate 250 ml @ 3.75 mls/hr Q24H IV 05/01/24 22:30 05/04/24 07:40 11.25 MLS/HR Acetaminophen 650 mg Q6HP PRN PO 05/01/24 23:30 05/02/24 11:36 650 MG Midazolam HCl 50 ml @ 1 mls/hr Q24H IV 05/02/24 06:15 05/06/24 04:21 9 MLS/HR Piperacillin Sod/ Tazobactam Sod 100 ml @ 25 mls/hr Q8HR IV 05/02/24 08:00 05/06/24 14:24 25 MLS/HR Ipratropium [place] 0.5 mg Q4HPRN PRN NEB 05/02/24 14:15 05/06/24 10:08 0.5 MG Fentanyl Citrate 250 ml @ 2.5 mls/hr Q24H IV 05/02/24 15:00 05/04/24 20:03 5 MLS/HR Phenobarbital 32.4 mg Q8HR PO 05/02/24 22:00 05/06/24 14:24 32.4 MG Pantoprazole Sodium 40 mg DAILY IV 05/03/24 10:00 05/06/24 09:46 40 MG Enoxaparin Sodium 30 mg DAILY SC 05/03/24 10:00 05/06/24 09:46 30 MG Levalbuterol HCl 0.625 mg Q4HPRN PRN NEB 05/02/24 16:15 05/06/24 10:08 0.625 MG Levetiracetam 100 ml @ 400 mls/hr BID IV 05/03/24 22:00 05/06/24 09:44 400 MLS/HR Patient Own Medication 5 ml BIDBL PEG 05/04/24 08:00 05/11/24 08:00 05/06/24 12:26 5 ML Diagnostic Test (Pha) 1 strip IQ4HR 05/04/24 12:00 05/06/24 16:40 1 STRIP Dextrose 50 ml UD PRN IV 05/04/24 11:00 Enteral Nutritional Formula 1,000 ml 30ML/HR GT 05/04/24 13:15 05/04/24 13:50 1,000 ML Enteral Nutritional Formula 1,000 ml 30ML/HR GT 05/04/24 13:30 Hydrocortisone Sodium Succinate 25 mg Q12HR IV 05/04/24 14:45 05/06/24 09:46 25 MG Levothyroxine Sodium 25 mcg QAM@0600 PO 05/05/24 06:00 05/06/24 06:27 25 MCG Levothyroxine Sodium 137 mcg QAM@0600 PO 05/06/24 06:00 05/06/24 06:29 112 MCG Patient Own Medication 1 BID PO 05/06/24 10:30 05/06/24 12:38 1 Patient Own Medication 1 BID PO 05/06/24 10:30 05/06/24 12:35 1 Patient Own Medication 1 BID PO 05/06/24 10:30 05/06/24 12:33 1 Examination Young male patient lying in bed, extubated, on BiPAP, RASS -3 General: afebrile, palor, mucosae are moist Cardiovascular: Regular S1 and S2. No murmurs, gallops or rubs. No JVD elevation. No pedal edema Respiratory: Decreased bibasilar breath sounds, saturating 95 on 30% FiO2. Chest tube test, seen draining 25 cc. Abdomen: Soft, nontender, nondistended, hypoactive bowel sounds, no rebound tenderness, no organomegaly, no masses. Peg tube seen Genitourinary: Deferred MSK/skin: Skin is dry and warm. Left feet has blister on ankle. Neurological: No motor, no sensitive deficits, normal speech. Pupils are isocoric and reactive. laboratory and microbiology Laboratory Tests 05/06/24 03:00 Test 05/06/24 03:00 Range/Units Serum Glucose 91 74-106 mg/dL Microbiology Date/Time Source Procedure Growth Status 05/03/24 16:10 Nose MRSA Screen - Final Complete 05/02/24 17:50 Blood Blood Culture - Preliminary NO GROWTH AFTER 72 HOURS OF INCUBATION. Resulted 05/02/24 16:20 Voided Urine Urine Culture - Final Complete 05/01/24 23:40 Sputum Gram Stain - Final Complete 05/01/24 23:40 Respiratory Culture - Final Haemophilus parahemolyticus Complete Labs and/or images reviewed: Labs reviewed by me, Image(s) reviewed by me Problem List/Assessment/Plan Problem List/Assessment/Plan NEUROLOGY Altered level of consciousness secondary to sepsis secondary to pneumonia Acute metabolic encephalopathy secondary to hyperammonemia and sepsis Focal seizure disorder Wheelchair-bound Nonverbal Cognitive delay Corpus colostomy 11/[address] completed 05/01, shows mild ventriculomegaly Head CT completed 05/04 shows stable mild ventriculomegaly Continue IV levetiracetam, phenobarbital, midazolam Neurology-blue geraldine consulted, recommended MRI brain which Patient did not tolerate CARDIOVASCULAR Status post cardiac arrest 05/03 Lactic acidosis Pulmonary Edema 05/06-currently on BiPAP RESPIRATORY Septic shock secondary to pneumonia, community-acquired, Gram-positive and negative status post intubation and mechanical ventilation, extubated 05/06 Acute hypoxic respiratory failure secondary to above Acute hypercarbic respiratory failure secondary to above Probable aspiration pneumonia Right-sided traumatic hemothorax status post chest tube placement Atelectasis Respiratory acidosis-resolved Bronchoscopy completed 05/02 shows right lower lobe atelectasis and R4-R10 mucus plug. Continue nebulized treatment with levalbuterol and ipratropium 05/06, patient is extubated currently on BiPAP. Received racemic epinephrine after extubation. GI Hyperammonemia Shock liver Status post G-tube as a child Transaminitis Monitor Liver ultrasound unremarkable /KIDNEY Paraphimosis Urology consulted-manual reduction of paraphimosis done tolerated well. ENDO Adrenal insufficiency Hyponatremia/SIADH Hypothyroidism Continue IV levothyroxine 137 mcg and 25 mcg daily Continue hydrocortisone 25 mg q.12 daily, patient takes 10 mg p.o. at home ID Septic shock secondary to pneumonia Preliminary blood culture negative Respiratory culture shows beta-hemolytic group F Streptococcus Urine culture negative Continue IV Zosyn daily starting 05/02 HEM-ONCO LINES Intubation 05/01 Right femoral CVC line 05/01 DRIPS LEVOPHED of since 05/05 4:00 a.m. FENTANYL 0 VERSED 4 NUTRITION: Jevity 1.2 DIMPLE 30 mL/hour DVT: Lovenox 30 mg sc daily Last bowel movement: 05/05 End of note Goals of care/advance care planning; FULL CODE; discussed on for 24 minutes. PUD prophylaxis: Continue pantoprazole 40 mg daily IV DVT prophylaxis: Continue enoxaparin 30 mg daily SC Plan discussed with patient's aunt at bedside in which all questions have been answered Case discussed with Dr. Barroso. Extubated 05/06. Currently on BiPAP. Critical care time including chart review, CPAP trial, monitoring blood gases and discussing with patient's family excluding procedure: 116 minutes Plan discussed with: Patient, Other (Aunt and family at the bedside) My Orders My Orders Orders - TOMMY RENEE RESIDENT Procedure Category Date Status Time Communication Order ORDERS 05/05/24 Transmitted 18:38 Patients Own PHA 05/06/24 In Process Medication 10:30 Patients Own PHA 05/06/24 In Process Medication 10:30 Patients Own PHA 05/06/24 In Process Medication 10:30 Communication Order ORDERS 05/06/24 Transmitted 10:32 Potassium LAB 05/06/24 Logged 16:36 Magnesium LAB 05/06/24 Logged 16:36 Dietary Evaluation Review Comments: 1. Recommend Jevity 1.2 @30ml/hr providing 40g protein, 864ckal which satifies his needs at 60% protein and 77% energy. 2. If pt is off vent, advance diet to pureed diet. 3. If blood glucose elevated, switch TF to Glucerna 1.2 30ml/hr (43gProtein 864 kcal), 4. If blood glucose elevated, advance diet to CCHO-60 pureed diet. Expected Outcomes/Goals: Meet 75% of his needs, graudla weight loss.Advance to pureed diet. Date of Service: May 06, 2024 Billing Provider: KAIA BARROSO MD Common Visit Codes: [id number] CARE 30-74 MIN, [id number] CARE-EACH +30MIN (x2) TOMMY RENEE RESIDENT May 06, 2024 18:20 KAIA BARROSO MD May 07, 2024 09:44
[2024-05-06 21:23] LABS: Potassium 3.4 mmol/L (3.5-5.1)
[2024-05-07] VITALS (102 sets, daily range): BP systolic 86–134; BP diastolic 51–92; PULSE 74–114; RESP 12–41; TEMP 97.5–100.4; O2SAT 87–100
--- NOTE | 2024-05-07 05:45 | DVH ---
CHEST RADIOGRAPH Indication: Follow up Technique: Single frontal view of the chest was obtained Comparison: XY CHEST XRAY 1 VIEW on DOS: 05/06/24 FINDINGS: Lines and Tubes: Left pigtail catheter overlies the left lung base. Endotracheal tube has been remove d. Lungs: Right middle lobe opacity noted. Additional bilateral opacities. Pleura: Probable pleural fluid in the minor fissure. No pneumothorax. Cardiomediastinal contours: Unremarkable Bones: No acute osseous abnormality. IMPRESSION: 1. Bilateral opacities and right pleural effusion. 2. Removal of the endotracheal tube.
[2024-05-07 07:28] LABS: Base Excess 3.9 mmol/L (-2.0-3.0)
[2024-05-07 08:15] LABS: Base Excess -0.4 mmol/L (-2.0-3.0)
[2024-05-07 11:14] LABS: Basophils # (auto) 0 10 ^3/uL (0-0.2); Basophils % (auto) 0.3 % (0.0-2.0); Eosinophils # (auto) 0.1 10 ^3/uL (0-0.8); Hematocrit 39.6 % (41.0-53.0); Hemoglobin 13.3 g/dL (13.5-17.5); Lymphocytes # (auto) 1.4 10 ^3/uL (0.4-5.4); Lymphocytes % (auto) 24.3 % (10.0-50.0); Mean Corpuscular Hgb Conc. 33.7 g/dL (32.0-36.0); Mean Corpuscular Volume 95.1 fL (80.0-100.0); Monocytes # (auto) 0.7 10 ^3/uL (0-1.3); Monocytes % (auto) 11.3 % (0.0-12.0); Neutrophils # (auto) 3.7 10 ^3/uL (1.6-8.6); Neutrophils % (auto) 63.1 % (37.0-80.0); Nucleated Red Blood Cells % 0.3 %; Platelet Count (auto) 286 10^3/uL (140-450); Red Blood Cells 4.16 10^6/uL (4.5-5.90); Red Cell Distribution Width 13.5 % (11.8-14.3); White Blood Cell 5.8 10^3/uL (4.4-10.8)
[2024-05-07 11:27] LABS: Albumin 3.6 g/dL (3.2-4.8); Anion Gap 5 (5-15); Bilirubin, Total 0.4 mg/dL (0.2-1.0); Chloride 103 mmol/L (98-107); Glucose 80 mg/dL (74-106); Magnesium 2.1 mg/dL (1.6-2.6); Sodium 140 mmol/L (136-145); Total Protein 6.3 g/dL (5.7-8.2)
[2024-05-07 11:31] LABS: Carbon Dioxide 32 mmol/L (20-31); Potassium 3.4 mmol/L (3.5-5.1)
[2024-05-07 11:32] LABS: Alanine Aminotransferase 45 U/L (7-40); Alkaline Phosphatase 241 U/L (46-116); BUN/Creatinine Ratio 11.4 (10.0-20.0); Blood Urea Nitrogen < 5 mg/dL (9-23)
[2024-05-07] MEDS: NOREPINEPHRINE 8 MG/250ML KIT 250 ML IV SCH (12:00)
[2024-05-07] MEDS: ACCU-CHEK COMFORT CURVE STRIP VI SCH (12:00)
[2024-05-07 12:03] LABS: Base Excess 7.7 mmol/L (-2.0-3.0)
[2024-05-07] MEDS: LIDOCAINE 2% (LOCAL ANESTH.) PF 5ml SDV ONE (12:36)
[2024-05-07] MEDS: LIDOCAINE 2%HCL (LOCAL ANESTH.) INJ 10ml MDV IJ ONE (12:36)
[2024-05-07 12:48] LABS: Aspartate Aminotransferase 58 U/L (13-40)
[2024-05-07] MEDS: methylPREDNISolone SOD SUCC 40 MG/ML VL IV ONE (12:55)
[2024-05-07] MEDS: POTASSIUM CHL 20MEQ/100ML 100 ML IV SCH (12:56)
[2024-05-07] MEDS: FUROSEMIDE 20 MG/2 ML VIAL IV ONE ×2 (13:39→18:54)
[2024-05-07 16:41] LABS: Base Excess 6.6 mmol/L (-2.0-3.0)
[2024-05-07 18:11] LABS: Anion Gap 7 (5-15); Calcium 9.6 mg/dL (8.7-10.4); Chloride 98 mmol/L (98-107); Potassium 3.8 mmol/L (3.5-5.1); Sodium 138 mmol/L (136-145)
[2024-05-07 18:17] LABS: BUN/Creatinine Ratio 12.5 (10.0-20.0); Blood Urea Nitrogen 7 mg/dL (9-23); Carbon Dioxide 33 mmol/L (20-31); Glucose 102 mg/dL (74-106)
[2024-05-07] MEDS: ACETAMINOPHEN 650 mg PER 20.3 mL UD PO PRN (18:17)
[2024-05-07 18:28] LABS: Potassium 3.8 mmol/L (3.5-5.1)
--- NOTE | 2024-05-07 19:12 | DVHPNRES ---
Progress Note Date Seen: May 07, 2024 Resident Creating Document: TOMMY RENEE RESIDENT Medical Necessity Reason Pt with a Central, PICC or Fol: Yes The following are medically ne: Central Line, Solitario Catheter Subjective Review of Systems This is a 19 Year old male patient with PMHx of cerebral palsy, focal seizures, wheelchair-bound, nonverbal, hypothyroidism, adrenal insufficiency, cognitive delay, SIADH, hyperammonemia who presented to the ER with a chief complaint of generalized weakness and discoloration of the lips. Per his aunt, who is the legal guardian, patient was experiencing cough/cold and fever and later became weak in his lips starting to get bluish therefore they decided to check into the ER. On arrival patient was afebrile, pulse 1 1 7, respiratory 25, blood pressure 77/38 mmHg, saturating 84. %. Labs showed WBC 4, sodium 132, potassium 3.3, lactic acid 3.2, cortisol 17, ammonia 71, TSH 0.01. Patient was intubated on 05/01 and the bronchus completed on 05/02 which showed right-sided atelectasis and mucus plugging in the R4 to [place] region. He was started on IV Zosyn, Keppra, phenobarbital, clobazam and levothyroxine and hydrocortisone 10 mg b.i.d.. Patient experienced code blue on the night of 05/03 and he received 9 doses of epinephrine, 1 dose of sodium bicarb and 1 mL of calcium chloride. Eleven rounds of CPR were performed and the patient achieved ROSC. Head CT completed which showed mild ventriculomegaly. Chest x-ray showed left lung white out, chest tube was placed. Past surgical history: Corpus colostomy in 11/22, G-tube as a child Home medications: Levothyroxine 137 mcg, phenobarbital, clobazam, Keppra, rufinamide, Cortef 10 mg, uri na packet bid Patient seen and examined at the bedside. Patient is on Levophed, fentanyl, Versed. Has a right fem CBC. Overnight temperature was 99.3. Chest x-ray shows bilateral patchy opacity. Right lower opacity improved. Left whiteout improved. Chest tube seen. Respiratory culture shows beta-hemolytic streptococci. LFTs up trending. Urology consulted for swollen foreskin. 05/05 -overnight [facility] saw the patient, recommended MRI which the patient could not tolerate. T-max 99.0 F, intermittent bradycardia into 50s. Liver ultrasound is unremarkable. Patient is off Levophed since 4:00 a.m. on fentanyl and Versed. CPAP trial in the a.m.. Return of sedation in a.m., fentanyl 1st 10 Versed, add patient's seizure medications. 05/06 - patient seen and examined at the bedside. Sedation was turned off and patient was started on his home meds including clobazam, rufinamide and diacomit. Chest tube draining 25 cc. Completed CPAP trial, successfully extubated 05/06. Received 2 doses of IV Lasix 20 mg. Patient is on BiPAP starting 4:00 p.m. Spoke to [facility], willing to accept pending bed availability. 05/07 - overnight FiO2 increased from 60% to 80% on BiPAP. ABG shows respiratory acidosis with pCO2 70. ABG changes made 15/ and FiO2 lower to 50%, ABG shows resolving respiratory acidosis. Chest tube draining 10 cc overnight. On Levophed 2. Patient received 2 doses of Lasix 20 mg IV. Patient urinated 2500 cc. Objective vital signs Vital Sign Date Time Temp Pulse Resp B/P (MAP) Pulse Ox O2 Delivery O2 Flow Rate FiO2 05/07/24 18:54 97/62 05/07/24 18:30 100.4 102 18 100 212.7 05/07/24 18:00 Hi-Flow NC 8 N/A Total Intake and Output 05/06/24 05/06/24 05/07/24 14:59 22:59 06:59 Intake Total 177.5 ml 440.30 ml 306.86 ml Output Total 3270 ml 560 ml Balance 177.5 ml -2829.70 ml -253.14 ml medications Current Medications Medications Dose Ordered Sig/Adri Route Start Time Stop Time Status Last Admin Dose Admin Piperacillin Sod/ Tazobactam Sod 100 ml @ 25 mls/hr Q8HR IV 05/02/24 08:00 05/07/24 16:19 25 MLS/HR Ipratropium [place] 0.5 mg Q4HPRN PRN NEB 05/02/24 14:15 05/07/24 16:17 0.5 MG Pantoprazole Sodium 40 mg DAILY IV 05/03/24 10:00 05/07/24 09:39 40 MG Enoxaparin Sodium 30 mg DAILY SC 05/03/24 10:00 05/07/24 09:38 30 MG Levalbuterol HCl 0.625 mg Q4HPRN PRN NEB 05/02/24 16:15 05/07/24 16:17 0.625 MG Levetiracetam 100 ml @ 400 mls/hr BID IV 05/03/24 22:00 05/07/24 09:52 400 MLS/HR Patient Own Medication 5 ml BIDBL PEG 05/04/24 08:00 05/11/24 08:00 05/07/24 12:56 5 ML Dextrose 50 ml UD PRN IV 05/04/24 11:00 Enteral Nutritional Formula 1,000 ml 30ML/HR GT 05/04/24 13:15 05/04/24 13:50 1,000 ML Enteral Nutritional Formula 1,000 ml 30ML/HR GT 05/04/24 13:30 Hydrocortisone Sodium Succinate 25 mg Q12HR IV 05/04/24 14:45 05/07/24 09:39 25 MG Levothyroxine Sodium 25 mcg QAM@0600 PO 05/05/24 06:00 05/07/24 05:43 25 MCG Levothyroxine Sodium 137 mcg QAM@0600 PO 05/06/24 06:00 05/07/24 05:43 137 MCG Patient Own Medication 1 BID PO 05/06/24 10:30 05/07/24 10:07 1 Patient Own Medication 1 BID PO 05/06/24 10:30 05/07/24 10:08 1 Patient Own Medication 1 BID PO 05/06/24 10:30 05/07/24 10:08 1 Diagnostic Test (Pha) 1 strip Q6HR 05/07/24 12:00 05/07/24 18:15 1 STRIP Norepinephrine Bitartrate 250 ml @ 1.875 mls/ hr Q24H IV 05/07/24 12:00 Acetaminophen 650 mg Q6HP PRN PO 05/07/24 17:30 05/07/24 18:17 650 MG Phenobarbital 32.4 mg BID PO 05/07/24 22:00 Examination Young male patient lying in bed, extubated, on 8 L NC General: afebrile, palor, mucosae are moist Cardiovascular: Regular S1 and S2. No murmurs, gallops or rubs. No JVD elevation. No pedal edema Respiratory: Decreased bibasilar breath sounds, saturating 95 8 L NC. Chest tube test, seen draining 10 cc. Abdomen: Soft, nontender, nondistended, hypoactive bowel sounds, no rebound tenderness, no organomegaly, no masses. Peg tube seen Genitourinary: Deferred MSK/skin: Skin is dry and warm. Left feet has blister on ankle. Neurological: No motor, no sensitive deficits, normal speech. Pupils are isocoric and reactive. laboratory and microbiology Laboratory Tests 05/07/24 17:39 05/07/24 10:40 Test 05/07/24 17:39 Range/Units Serum Glucose 102 74-106 mg/dL Microbiology Date/Time Source Procedure Growth Status 05/03/24 16:10 Nose MRSA Screen - Final Complete 05/02/24 17:50 Blood Blood Culture - Final NO GROWTH AFTER 5 DAYS OF INCUBATION. Complete 05/02/24 16:20 Voided Urine Urine Culture - Final Complete 05/01/24 23:40 Sputum Gram Stain - Final Complete 05/01/24 23:40 Respiratory Culture - Final Haemophilus parahemolyticus Complete Labs and/or images reviewed: Labs reviewed by me, Image(s) reviewed by me Problem List/Assessment/Plan Problem List/Assessment/Plan NEUROLOGY Altered level of consciousness secondary to sepsis secondary to pneumonia Acute metabolic encephalopathy secondary to hyperammonemia and sepsis Focal seizure disorder Wheelchair-bound Nonverbal Cognitive delay Corpus colostomy 11/[address] completed 05/01, shows mild ventriculomegaly Head CT completed 05/04 shows stable mild ventriculomegaly Continue IV levetiracetam, phenobarbital, midazolam 05/07-Phenobarbital change from 32.4 mg TID to b.i.d. Neurology-[facility] consulted, recommended MRI brain which Patient did not tolerate CARDIOVASCULAR Status post cardiac arrest 05/03 Lactic acidosis Pulmonary Edema 05/06-currently on BiPAP RESPIRATORY Septic shock secondary to pneumonia, community-acquired, Gram-positive and negative status post intubation and mechanical ventilation, extubated 05/06 Acute hypoxic respiratory failure secondary to above Acute hypercarbic respiratory failure secondary to above Probable aspiration pneumonia Right-sided traumatic hemothorax status post chest tube placement Atelectasis Respiratory acidosis-resolving Bronchoscopy completed 05/02 shows right lower lobe atelectasis and R4-R10 mucus plug. Continue nebulized treatment with levalbuterol and ipratropium 05/06, patient is extubated currently on BiPAP. Received racemic epinephrine after extubation. 05/07 - received 2 doses of 20 mg Lasix IV. Currently on he 8 L NC. GI Hyperammonemia Shock liver Status post G-tube as a child Transaminitis Monitor Liver ultrasound unremarkable /KIDNEY Paraphimosis Urology consulted-manual reduction of paraphimosis done tolerated well. ENDO Adrenal insufficiency Hyponatremia/SIADH Hypothyroidism Continue IV levothyroxine 137 mcg and 25 mcg daily Continue hydrocortisone 25 mg q.12 daily, patient takes 10 mg p.o. at home ID Septic shock secondary to pneumonia 05/02 blood culture negative Respiratory culture shows beta-hemolytic group F Streptococcus Urine culture negative Continue IV Zosyn daily starting 05/02 HEM-ONCO LINES Intubation 05/01 Right femoral CVC line 05/01, repositioned /2 DRIPS LEVOPHED of since 05/05 4:00 a.m. FENTANYL 0 VERSED 0 NUTRITION: Jevity 1.2 DIMPLE 30 mL/hour DVT: Lovenox 30 mg sc daily Last bowel movement: 05/05 End of note Goals of care/advance care planning; FULL CODE; discussed on for 24 minutes. PUD prophylaxis: Continue pantoprazole 40 mg daily IV DVT prophylaxis: Continue enoxaparin 30 mg daily SC Plan discussed with patient's aunt at bedside in which all questions have been answered Case discussed with Dr. Barroso. Extubated 05/06. Currently on 8 L NC. Critical care time including chart review, BiPAP, ongoing monitoring of pt's respiratory status and discussing with patient's family excluding procedure: 116 minutes Plan discussed with: Patient, Other (Aunt at bedside) My Orders My Orders Orders - TOMMY RENEE RESIDENT Procedure Category Date Status Time Cleanse Wound With JAVI 05/07/24 In Process Wound Clean 11:16 Dietary Evaluation Review Comments: 1. Recommend Jevity 1.2 @30ml/hr providing 40g protein, 864ckal which satifies his needs at 60% protein and 77% energy. 2. If pt is off vent, advance diet to pureed diet. 3. If blood glucose elevated, switch TF to Glucerna 1.2 30ml/hr (43gProtein 864 kcal), 4. If blood glucose elevated, advance diet to CCHO-60 pureed diet. Expected Outcomes/Goals: Meet 75% of his needs, graudla weight loss.Advance to pureed diet. Date of Service: May 07, 2024 Billing Provider: KAIA BARROSO MD Common Visit Codes: [id number] CARE 30-74 MIN, [id number] CARE-EACH +30MIN (x2) TOMMY RENEE RESIDENT May 07, 2024 19:12 KAIA BARROSO MD May 10, 2024 11:16
[2024-05-07] MEDS: PHENobarbital 32.4 MG TAB PO SCH (22:00)
[2024-05-07] MEDS: diphenhdrAMINE HCL 50 MG/1 ML VL IV ONE (22:23)
[2024-05-08] VITALS (98 sets, daily range): BP systolic 79–125; BP diastolic 47–94; PULSE 69–112; RESP 11–30; TEMP 95.4–100.6; O2SAT 78–100
[2024-05-08 03:45] LABS: White Blood Cell 10.2 10^3/uL (4.4-10.8)
[2024-05-08 03:48] LABS: Hematocrit 38.8 % (41.0-53.0); Hemoglobin 13.5 g/dL (13.5-17.5); Mean Corpuscular Hemoglobin 32.4 pg (28.0-32.0); Mean Corpuscular Hgb Conc. 34.7 g/dL (32.0-36.0); Mean Corpuscular Volume 93.3 fL (80.0-100.0); Platelet Count (auto) 499 10^3/uL (140-450); Red Blood Cells 4.16 10^6/uL (4.5-5.90); Red Cell Distribution Width 13.3 % (11.8-14.3)
[2024-05-08 03:56] LABS: Anion Gap 6 (5-15); BUN/Creatinine Ratio 17.5 (10.0-20.0); Bilirubin, Total 0.5 mg/dL (0.2-1.0); Blood Urea Nitrogen 10 mg/dL (9-23); Calcium 9.7 mg/dL (8.7-10.4); Chloride 99 mmol/L (98-107); Glucose 100 mg/dL (74-106); Potassium 3.6 mmol/L (3.5-5.1); Sodium 138 mmol/L (136-145); Total Protein 7.1 g/dL (5.7-8.2)
[2024-05-08 04:09] LABS: Alanine Aminotransferase 43 U/L (7-40); Alkaline Phosphatase 237 U/L (46-116); Aspartate Aminotransferase 42 U/L (13-40); Carbon Dioxide 33 mmol/L (20-31)
[2024-05-08 04:17] LABS: Basophils % (manual) 0 (0.0-2.0); Blast Cells 0; Metamyelocytes % 0; Myelocytes % 0; Promyelocytes % 0; Reactive Lymphocytes 0
[2024-05-08 05:15] LABS: Band Neutrophils % (manual) 3; Eosinophils % (manual) 2 (0-7); Lymphocytes % (manual) 25 (10.0-50.0); Monocytes % (manual) 8 (0-12); Platelet Estimate Increased
--- NOTE | 2024-05-08 05:39 | DVH ---
CHEST RADIOGRAPH Indication: RESPIRATORY FAILURE Technique: Single frontal view of the chest was obtained COMPARISON: XY CHEST XRAY 1 VIEW on DOS: 05/07/24, XY CHEST XRAY 1 VIEW on DOS: 05/06/24, XY CHEST XRAY 1 VIEW on DOS: 05/05/24, XY CHEST XRAY 1 VIEW on DOS: 05/04/24, XY CHEST PORTABLE on DOS: 05/03/24 FINDINGS: Lines and Tubes: Left chest tube in satisfactory position. Lungs: Bibasilar subsegmental atelectasis. Pleura: No effusion. No pneumothorax. Cardiomediastinal contours: Unremarkable Bones: Unremarkable IMPRESSION: No appreciable pneumothorax with left chest tube in-situ.
[2024-05-08] MEDS: POTASSIUM CHL 20MEQ/100ML 100 ML IV ONE (07:52)
[2024-05-08] MEDS: SODIUM CHLORIDE 0.9% 500 ML IV ONE (12:19)
[2024-05-08] MEDS: Jevity 1.2 Cal/Fiber 1 Liter GT SCH (12:28)
--- NOTE | 2024-05-08 14:43 | DVHPNRES ---
Progress Note Date Seen: May 08, 2024 Resident Creating Document: TOMMY RENEE RESIDENT Medical Necessity Reason Pt with a Central, PICC or Fol: Yes The following are medically ne: Central Line, Solitario Catheter Subjective Review of Systems This is a 19 Year old male patient with PMHx of cerebral palsy, focal seizures, wheelchair-bound, nonverbal, hypothyroidism, adrenal insufficiency, cognitive delay, SIADH, hyperammonemia who presented to the ER with a chief complaint of generalized weakness and discoloration of the lips. Per his aunt, who is the legal guardian, patient was experiencing cough/cold and fever and later became weak in his lips starting to get bluish therefore they decided to check into the ER. On arrival patient was afebrile, pulse 1 1 7, respiratory 25, blood pressure 77/38 mmHg, saturating 84. %. Labs showed WBC 4, sodium 132, potassium 3.3, lactic acid 3.2, cortisol 17, ammonia 71, TSH 0.01. Patient was intubated on 05/01 and the bronchus completed on 05/02 which showed right-sided atelectasis and mucus plugging in the R4 to [place] region. He was started on IV Zosyn, Keppra, phenobarbital, clobazam and levothyroxine and hydrocortisone 10 mg b.i.d.. Patient experienced code blue on the night of 05/03 and he received 9 doses of epinephrine, 1 dose of sodium bicarb and 1 mL of calcium chloride. Eleven rounds of CPR were performed and the patient achieved ROSC. Head CT completed which showed mild ventriculomegaly. Chest x-ray showed left lung white out, chest tube was placed. Past surgical history: Corpus colostomy in 11/22, G-tube as a child Home medications: Levothyroxine 137 mcg, phenobarbital, clobazam, Keppra, rufinamide, Cortef 10 mg, uri na packet bid Patient seen and examined at the bedside. Patient is on Levophed, fentanyl, Versed. Has a right fem CBC. Overnight temperature was 99.3. Chest x-ray shows bilateral patchy opacity. Right lower opacity improved. Left whiteout improved. Chest tube seen. Respiratory culture shows beta-hemolytic streptococci. LFTs up trending. Urology consulted for swollen foreskin. 05/05 -overnight blue [facility] saw the patient, recommended MRI which the patient could not tolerate. T-max 99.0 F, intermittent bradycardia into 50s. Liver ultrasound is unremarkable. Patient is off Levophed since 4:00 a.m. on fentanyl and Versed. CPAP trial in the a.m.. Return of sedation in a.m., fentanyl 1st 10 Versed, add patient's seizure medications. 05/06 - patient seen and examined at the bedside. Sedation was turned off and patient was started on his home meds including clobazam, rufinamide and diacomit. Chest tube draining 25 cc. Completed CPAP trial, successfully extubated 05/06. Received 2 doses of IV Lasix 20 mg. Patient is on BiPAP starting 4:00 p.m. Spoke to [facility] [place], willing to accept pending bed availability. 05/07 - overnight FiO2 increased from 60% to 80% on BiPAP. ABG shows respiratory acidosis with pCO2 70. ABG changes made 17/09 and FiO2 lower to 50%, ABG shows resolving respiratory acidosis. Chest tube draining 10 cc overnight. On Levophed 2. Patient received 2 doses of Lasix 20 mg IV. Patient urinated 2500 cc. 05/08-overnight no events reported. Patient is currently on Levophed of 2. Saturating 100% on 6 L Oxymizer. IV NS 500 cc bolus administered. Overnight, no output from the chest tube, Chest tube clamped. WBC increased to 10, platelets increased to for 499. Objective vital signs Vital Sign Date Time Temp Pulse Resp B/P (MAP) Pulse Ox O2 Delivery O2 Flow Rate FiO2 05/08/24 14:00 22 94 Nasal Cannula* 4 36 05/08/24 14:00 96 05/08/24 14:00 98.6 118/73 (88) 209.5 Total Intake and Output 05/07/24 05/07/24 05/08/24 15:00 23:00 07:00 Intake Total 211.250 ml 100 ml 398.75 ml Output Total 2500 ml 525 ml Balance 211.250 ml -2400 ml -126.25 ml medications Current Medications Medications Dose Ordered Sig/Adri Route Start Time Stop Time Status Last Admin Dose Admin Piperacillin Sod/ Tazobactam Sod 100 ml @ 25 mls/hr Q8HR IV 05/02/24 08:00 05/08/24 06:01 25 MLS/HR Ipratropium [place] 0.5 mg Q4HPRN PRN NEB 05/02/24 14:15 05/07/24 16:17 0.5 MG Pantoprazole Sodium 40 mg DAILY IV 05/03/24 10:00 05/08/24 09:47 40 MG Enoxaparin Sodium 30 mg DAILY SC 05/03/24 10:00 05/08/24 09:48 30 MG Levalbuterol HCl 0.625 mg Q4HPRN PRN NEB 05/02/24 16:15 05/07/24 16:17 0.625 MG Levetiracetam 100 ml @ 400 mls/hr BID IV 05/03/24 22:00 05/08/24 09:02 400 MLS/HR Patient Own Medication 5 ml BIDBL PEG 05/04/24 08:00 05/11/24 08:00 05/08/24 12:02 5 ML Dextrose 50 ml UD PRN IV 05/04/24 11:00 Enteral Nutritional Formula 1,000 ml 30ML/HR GT 05/04/24 13:15 05/04/24 13:50 1,000 ML Enteral Nutritional Formula 1,000 ml 30ML/HR GT 05/04/24 13:30 05/08/24 12:28 1,000 ML Hydrocortisone Sodium Succinate 25 mg Q12HR IV 05/04/24 14:45 05/08/24 09:48 25 MG Levothyroxine Sodium 25 mcg QAM@0600 PO 05/05/24 06:00 05/08/24 06:01 25 MCG Levothyroxine Sodium 137 mcg QAM@0600 PO 05/06/24 06:00 05/08/24 06:01 137 MCG Patient Own Medication 1 BID PO 05/06/24 10:30 05/08/24 10:12 1 Patient Own Medication 1 BID PO 05/06/24 10:30 05/08/24 10:12 1 Patient Own Medication 1 BID PO 05/06/24 10:30 05/08/24 10:12 1 Diagnostic Test (Pha) 1 strip Q6HR 05/07/24 12:00 05/08/24 12:03 1 STRIP Norepinephrine Bitartrate 250 ml @ 1.875 mls/ hr Q24H IV 05/07/24 12:00 05/08/24 12:03 3.75 MLS/HR Acetaminophen 650 mg Q6HP PRN PO 05/07/24 17:30 05/08/24 14:25 650 MG Phenobarbital 32.4 mg BID PO 05/07/24 22:00 05/08/24 09:11 32.4 MG Examination Young male patient lying in bed, extubated, on 8 L NC General: afebrile, palor, mucosae are moist Cardiovascular: Regular S1 and S2. No murmurs, gallops or rubs. No JVD elevation. No pedal edema Respiratory: Decreased bibasilar breath sounds, saturating 95 8 L NC. Chest tube attached. Abdomen: Soft, nontender, nondistended, hypoactive bowel sounds, no rebound tenderness, no organomegaly, no masses. Peg tube seen Genitourinary: Deferred MSK/skin: Skin is dry and warm. Left feet has blister on ankle. Neurological: No motor, no sensitive deficits, normal speech. Pupils are isocoric and reactive. laboratory and microbiology Laboratory Tests 05/08/24 03:19 Test 05/08/24 03:19 Range/Units Serum Glucose 100 74-106 mg/dL Microbiology Date/Time Source Procedure Growth Status 05/03/24 16:10 Nose MRSA Screen - Final Complete 05/02/24 17:50 Blood Blood Culture - Final NO GROWTH AFTER 5 DAYS OF INCUBATION. Complete 05/02/24 16:20 Voided Urine Urine Culture - Final Complete 05/01/24 23:40 Sputum Gram Stain - Final Complete 05/01/24 23:40 Respiratory Culture - Final Haemophilus parahemolyticus Complete Labs and/or images reviewed: Labs reviewed by me, Image(s) reviewed by me Problem List/Assessment/Plan Problem List/Assessment/Plan NEUROLOGY Altered level of consciousness secondary to sepsis secondary to pneumonia Acute metabolic encephalopathy secondary to hyperammonemia and sepsis Focal seizure disorder Wheelchair-bound Nonverbal Cognitive delay Corpus colostomy 11/[address] completed 05/01, shows mild ventriculomegaly Head CT completed 05/04 shows stable mild ventriculomegaly Continue IV levetiracetam, phenobarbital, midazolam 05/07-Phenobarbital change from 32.4 mg TID to b.i.d. Neurology-[facility] consulted, recommended MRI brain which Patient did not tolerate CARDIOVASCULAR Status post cardiac arrest 05/03 Lactic acidosis Pulmonary Edema 05/06-currently on BiPAP RESPIRATORY Septic shock secondary to pneumonia, community-acquired, Gram-positive and negative status post intubation and mechanical ventilation, extubated 05/06 Acute hypoxic respiratory failure secondary to above Acute hypercarbic respiratory failure secondary to above Probable aspiration pneumonia Right-sided traumatic hemothorax status post chest tube placement Atelectasis Respiratory acidosis-resolving Bronchoscopy completed 05/02 shows right lower lobe atelectasis and R4-R10 mucus plug. Continue nebulized treatment with levalbuterol and ipratropium 05/06, patient is extubated currently on BiPAP. Received racemic epinephrine after extubation. 05/07 - received 2 doses of 20 mg Lasix IV. Currently on he 8 L NC. GI Hyperammonemia Shock liver Status post G-tube as a child Transaminitis Monitor Liver ultrasound unremarkable /KIDNEY Paraphimosis Urology consulted-manual reduction of paraphimosis done tolerated well. ENDO Adrenal insufficiency Hyponatremia/SIADH Hypothyroidism Continue IV levothyroxine 137 mcg and 25 mcg daily Continue hydrocortisone 25 mg q.12 daily, patient takes 10 mg p.o. at home ID Septic shock secondary to pneumonia 05/02 blood culture negative Respiratory culture shows beta-hemolytic group F Streptococcus Urine culture negative Continue IV Zosyn daily starting 05/02 HEM-ONCO LINES Intubation 05/01 Right femoral CVC line 05/01, repositioned 05/07 DRIPS LEVOPHED 02 FENTANYL 0 VERSED 0 NUTRITION: Jevity 1.2 DIMPLE 30 mL/hour DVT: Lovenox 40 mg sc daily Last bowel movement: 05/05 End of note Goals of care/advance care planning; FULL CODE; discussed on for 24 minutes. PUD prophylaxis: Continue pantoprazole 40 mg daily IV DVT prophylaxis: Continue enoxaparin 40 mg daily SC Plan discussed with patient's aunt at bedside in which all questions have been answered Case discussed with Dr. Blood. Extubated 05/08. Currently on 4 L Oxymizer. Critical care time including chart review, discussing with patient's family excluding procedure: 49 minutes Plan discussed with: Patient, Other (Aunt At the bedside) My Orders My Orders Orders - TOMMY RENEE RESIDENT Procedure Category Date Status Time Cleanse Wound With JAVI 05/07/24 In Process Wound Clean 11:16 Dietary Evaluation Review Comments: 1. Recommend Jevity 1.2 @30ml/hr providing 40g protein, 864ckal which satifies his needs at 60% protein and 77% energy. 2. If pt is off vent, advance diet to pureed diet. 3. If blood glucose elevated, switch TF to Glucerna 1.2 30ml/hr (43gProtein 864 kcal), 4. If blood glucose elevated, advance diet to CCHO-60 pureed diet. Expected Outcomes/Goals: Meet 75% of his needs, graudla weight loss.Advance to pureed diet. Date of Service: May 08, 2024 Billing Provider: LICHA BLOOD MD Common Visit Codes: [id number] CARE 30-74 MIN TOMMY RENEE RESIDENT May 08, 2024 14:43 LICHA BLOOD MD May 10, 2024 21:34
[2024-05-09] VITALS (60 sets, daily range): BP systolic 52–156; BP diastolic 33–125; PULSE 77–106; RESP 11–31; TEMP 97.5–100.8; O2SAT 93–100
[2024-05-09 04:18] LABS: Hematocrit 39.7 % (41.0-53.0); Hemoglobin 13.6 g/dL (13.5-17.5); Mean Corpuscular Hgb Conc. 34.4 g/dL (32.0-36.0); Mean Corpuscular Volume 93.1 fL (80.0-100.0); Platelet Count (auto) 468 10^3/uL (140-450); Red Blood Cells 4.26 10^6/uL (4.5-5.90); Red Cell Distribution Width 13.5 % (11.8-14.3); White Blood Cell 8.1 10^3/uL (4.4-10.8)
[2024-05-09 04:22] LABS: Basophils % (manual) 0 (0.0-2.0); Blast Cells 0; Metamyelocytes % 0; Promyelocytes % 0
[2024-05-09 04:33] LABS: Alanine Aminotransferase 33 U/L (7-40); Albumin 3.7 g/dL (3.2-4.8); Anion Gap 8 (5-15); Aspartate Aminotransferase 36 U/L (13-40); BUN/Creatinine Ratio 23.2 (10.0-20.0); Blood Urea Nitrogen 13 mg/dL (9-23); Calcium 9.1 mg/dL (8.7-10.4); Carbon Dioxide 29 mmol/L (20-31); Chloride 103 mmol/L (98-107); Glucose 86 mg/dL (74-106); Magnesium 2.1 mg/dL (1.6-2.6); Sodium 140 mmol/L (136-145)
[2024-05-09 04:34] LABS: Alkaline Phosphatase 189 U/L (46-116); Bilirubin, Total 0.4 mg/dL (0.2-1.0); Potassium 3.4 mmol/L (3.5-5.1); Total Protein 6.5 g/dL (5.7-8.2)
[2024-05-09 04:57] LABS: Band Neutrophils % (manual) 5; Eosinophils % (manual) 2 (0-7); Lymphocytes % (manual) 17 (10.0-50.0); Monocytes % (manual) 7 (0-12); Myelocytes % 1; Reactive Lymphocytes 2
[2024-05-09 04:58] LABS: Platelet Estimate Increased
--- NOTE | 2024-05-09 05:53 | DVH ---
CHEST RADIOGRAPH Indication: Follow up Technique: Single frontal view of the chest was obtained Comparison: XY CHEST PORTABLE on DOS: 05/08/24, XY CHEST XRAY 1 VIEW on DOS: 05/07/24, XY CHEST XRAY 1 EW on DOS: 05/06/24 IMPRESSION: Heart is stable in size. Bibasilar patchy opacities. No sizable effusion or pneumothorax.
[2024-05-09] MEDS: ENOXAPARIN SOD 40 MG/0.4 ML SYRINGE SC SCH (10:40)
[2024-05-09] MEDS: POTASSIUM EFFERVESENT TAB 25 MEQ GT ONE (10:40)
--- NOTE | 2024-05-09 14:04 | DVHPN2 ---
Assessment/Plan Assessment/Plan ICU progress note Subjective 19 M with CP and seizure, nonverbal, adrenal insufficiency admitted for weakness and lip discoloration, intubated had cardiac arrest ROSC in 26 minutes c/b L hem othorax, s/p chest tube now extubated Patient was seen by me today during rounds, on simple mask, no increase in WOB, drain closed yesterday, POCUS chest with trace pleural effusion, reopened with ~10cc draining serosanguinous fluid. Objective Physical exam nonverbal on simple mask coarse breath sounds PERRLA s1 s2 RRR abdomen soft contractures Assessment and plan acute metabolic encephalopathy 2/2 sepsis focal seizure cerebral palsy corpus colostomy hx PEA arrest 05/03 ROSC 26 minutes s/p bronch pneumonia GP vs GN acute hypoxic respiratory failure s/p intubation, bronch with mucus plug r traumatic hemothorax s/p chest tube acute hypercapnic respiratory failure shock liver s/p gtube transaminitis paraphimosis adrenal insufficiency SIADH hypothyroidism c/w o2 supp maintain spo2 >94% c/w antiepileptics c/w hydrocortisone, levothyroxine breathing treatments chest tube will discuss removal with pulm c/w zosyn place midline, then dc TLC Lines R chest tube fem TLC Maintain potassium of 4, phosphate of 3 and magnesium of 2 Diet tube feeding GI prophylaxis protonix DVT prophylaxis lovenox Condition critical Prognosis poor 81 minutes critical care time spent on this patient including evaluation, chart review, formulating plan and communication with team, excluding any procedures or point of care imaging Plan discussed with: Other (parents) Date of Service: May 09, 2024 Billing Provider: LICHA BLOOD MD Common Visit Codes: [id number] CARE 30-74 MIN, [id number] CARE-EACH +30MIN LICHA BLOOD MD May 09, 2024 14:04
--- NOTE | 2024-05-09 23:47 | DVHPN2 ---
Progress Note - Dictate Date Seen: May 09, 2024 Medical Necessity Reason Pt with a Central, PICC or Fol: Yes The following are medically ne: Central Line, Solitario Catheter Subjective Patient seen and examined at bedside. On supplemental oxygen Overnight events reviewed. vital signs Vital Sign Date Time Temp Pulse Resp B/P (MAP) Pulse Ox O2 Delivery O2 Flow Rate FiO2 05/09/24 23:00 99.7 89 19 110/61 (77) 94 211.5 05/09/24 22:00 Nasal Cannula* 4 36 Total Intake and Output 05/08/24 05/08/24 05/09/24 15:00 23:00 07:00 Intake Total 620.625 ml 260 ml 365 ml Output Total 160 ml 150 ml Balance 620.625 ml 100 ml 215 ml medications Current Medications Medications Dose Ordered Sig/Adri Route Start Time Stop Time Status Last Admin Dose Admin Piperacillin Sod/ Tazobactam Sod 100 ml @ 25 mls/hr Q8HR IV 05/02/24 08:00 05/09/24 21:52 25 MLS/HR Ipratropium [place] 0.5 mg Q4HPRN PRN NEB 05/02/24 14:15 05/09/24 19:04 0.5 MG Pantoprazole Sodium 40 mg DAILY IV 05/03/24 10:00 05/09/24 10:38 40 MG Levalbuterol HCl 0.625 mg Q4HPRN PRN NEB 05/02/24 16:15 05/09/24 19:05 0.625 MG Levetiracetam 100 ml @ 400 mls/hr BID IV 05/03/24 22:00 05/09/24 21:24 400 MLS/HR Patient Own Medication 5 ml BIDBL PEG 05/04/24 08:00 05/11/24 08:00 05/09/24 14:33 5 ML Dextrose 50 ml UD PRN IV 05/04/24 11:00 Enteral Nutritional Formula 1,000 ml 30ML/HR GT 05/04/24 13:15 05/04/24 13:50 1,000 ML Enteral Nutritional Formula 1,000 ml 30ML/HR GT 05/04/24 13:30 05/08/24 12:28 1,000 ML Hydrocortisone Sodium Succinate 25 mg Q12HR IV 05/04/24 14:45 05/09/24 21:52 25 MG Levothyroxine Sodium 25 mcg QAM@0600 PO 05/05/24 06:00 05/09/24 06:16 25 MCG Levothyroxine Sodium 137 mcg QAM@0600 PO 05/06/24 06:00 05/09/24 06:16 112 MCG Patient Own Medication 1 BID PO 05/06/24 10:30 05/09/24 21:52 1 Patient Own Medication 1 BID PO 05/06/24 10:30 05/09/24 21:52 1 Patient Own Medication 1 BID PO 05/06/24 10:30 05/09/24 21:52 1 Diagnostic Test (Pha) 1 strip Q6HR 05/07/24 12:00 05/09/24 23:39 1 STRIP Norepinephrine Bitartrate 250 ml @ 1.875 mls/ hr Q24H IV 05/07/24 12:00 05/08/24 12:03 3.75 MLS/HR Acetaminophen 650 mg Q6HP PRN PO 05/07/24 17:30 05/09/24 18:55 650 MG Phenobarbital 32.4 mg BID PO 05/07/24 22:00 05/09/24 21:24 32.4 MG Enoxaparin Sodium 40 mg DAILY SC 05/09/24 10:00 05/09/24 10:40 40 MG Diphenhydramine HCl 25 mg Q6HP PRN GT 05/09/24 01:15 objective Gen.: Patient lying in bed in no apparent distress. On supplemental oxygen. Head: Normocephalic, atraumatic Eyes: EOMI/PERRLA. Ears: Normal hearing. Normal anatomy. Neck/trachea: Trachea midline, supple. Nose: Normal external anatomy. Mouth: Moist mucous membranes. Chest: Decreased air entry bilaterally. No wheezing or rhonchi. Cardio vascular: Positive S1, positive S2. Regular rate and rhythm. Abdomen: Positive bowel sounds in all 4 quadrants. Soft, non-tender, non- distended. : Deferred. Rectal: Deferred Skin: Warm, dry. Extremities: 2+ radial pulses bilaterally. No lower extremity edema. Neuro: Awake, alert. No gross motor or sensory deficits. Cranial nerves II through XII intact. Gait not assessed. laboratory and microbiology Laboratory Tests 05/09/24 03:33 Test 05/09/24 03:33 Range/Units Serum Glucose 86 74-106 mg/dL Assessment/Plan Impression: Acute hypoxic respiratory failure Acute hypercarbic respiratory failure On mechanical ventilator Aspiration pneumonia Generalized weakness Status epilepticus Electrolyte imbalances Sepsis Cerebral palsy Lactic acidosis, resolved S/p cardiac arrest with ROSC Traumatic pleural effusion Atelectasis, compressive Events: Patient on supplemental oxygen , 5 liters/minute simple mask Monitor chest tube output. Place chest tube to water seal Obtain chest x-ray in the morning for interval changes If no pneumothorax on morning chest x-ray we will consider removal Labs and imaging reviewed. Rest of plan as noted below. Plan: Continue antibiotics. F/u cultures. Monitor renal function Monitor electrolytes. Supplement as necessary. Monitor ins and outs. Nutritional support. Accu-Cheks, ISS. GI/DVT prophylaxis. Condition: Critical Prognosis: Poor given multiple comorbidities. Rest of plan per hospitalist and other consultants. A total of 35 minutes of critical care time was spent reviewing the patient record, examining the patient, making a diagnostic and therapeutic plan, discussing this plan with the medical personnel, following up on diagnostic studies and following the patient for clinical stability excluding any and all procedures. At least 50% of this time was spent in direct, [id number] contact. Thank you ELIO Estrada for allowing me to participate in this patient's care. Further recommendations will depend on patient's clinical course. Please do not hesitate to contact me if you have any questions or concerns. This medical document was created using an electronic medical record system with [employer] dictation system. Although this document has been carefully reviewed, there may still be some phonetic and typographical errors. These areas are purely typographical due to imperfections of the software programs, and do not reflect any compromise in the patient's medical care. Dietary Evaluation Review Comments: 1. Recommend Jevity 1.2 @30ml/hr providing 40g protein, 864ckal which satifies his needs at 60% protein and 77% energy. 2. If pt is off vent, advance diet to pureed diet. 3. If blood glucose elevated, switch TF to Glucerna 1.2 30ml/hr (43gProtein 864 kcal), 4. If blood glucose elevated, advance diet to CCHO-60 pureed diet. Expected Outcomes/Goals: Meet 75% of his needs, graudla weight loss.Advance to pureed diet. Plan discussed with: Other (CLARI Gamez, RT, MD) POOJA KEENAN MD May 09, 2024 23:47
[2024-05-10] VITALS (36 sets, daily range): BP systolic 93–119; BP diastolic 41–77; PULSE 62–99; RESP 13–29; TEMP 97.8–100.4; O2SAT 85–99
--- NOTE | 2024-05-10 06:12 | DVH ---
CHEST RADIOGRAPH Indication: CHEST TUBE Technique: Single frontal view of the chest was obtained COMPARISON: XY CHEST PORTABLE on DOS: 05/09/24, XY CHEST PORTABLE on DOS: 05/08/24, XY CHEST XRAY 1 VIEW on DOS: 05/07/24, XY CHEST XRAY 1 VIEW on DOS: 05/06/24, XY CHEST XRAY 1 VIEW on DOS: 05/05/24 FINDINGS: Lines and Tubes: Left chest tube in-situ. Lungs: Congestion Pleura: No effusion. Trace left apical pneumothorax. Cardiomediastinal contours: Unremarkable Bones: Unremarkable IMPRESSION: Trace left apical pneumothorax with left chest tube in-situ.
[2024-05-10 09:47] LABS: Basophils # (auto) 0 10 ^3/uL (0-0.2); Basophils % (auto) 0.5 % (0.0-2.0); Eosinophils # (auto) 0.2 10 ^3/uL (0-0.8); Eosinophils % (auto) 1.9 % (0.0-7.0); Hematocrit 37.1 % (41.0-53.0); Lymphocytes # (auto) 2.4 10 ^3/uL (0.4-5.4); Lymphocytes % (auto) 27.8 % (10.0-50.0); Mean Corpuscular Hemoglobin 32.2 pg (28.0-32.0); Mean Corpuscular Hgb Conc. 35.1 g/dL (32.0-36.0); Mean Corpuscular Volume 91.6 fL (80.0-100.0); Monocytes # (auto) 0.6 10 ^3/uL (0-1.3); Monocytes % (auto) 7.3 % (0.0-12.0); Neutrophils # (auto) 5.3 10 ^3/uL (1.6-8.6); Neutrophils % (auto) 62.5 % (37.0-80.0); Nucleated Red Blood Cells % 0.3 %; Platelet Count (auto) 542 10^3/uL (140-450); Red Blood Cells 4.05 10^6/uL (4.5-5.90); Red Cell Distribution Width 12.8 % (11.8-14.3); White Blood Cell 8.5 10^3/uL (4.4-10.8)
[2024-05-10 09:52] LABS: Alanine Aminotransferase 27 U/L (7-40); Albumin 3.6 g/dL (3.2-4.8); Anion Gap 6 (5-15); Aspartate Aminotransferase 33 U/L (13-40); BUN/Creatinine Ratio 19.4 (10.0-20.0); Blood Urea Nitrogen 12 mg/dL (9-23); Calcium 8.9 mg/dL (8.7-10.4); Magnesium 1.8 mg/dL (1.6-2.6)
[2024-05-10 09:53] LABS: Bilirubin, Total 0.3 mg/dL (0.2-1.0); Phosphorus 3.3 mg/dL (2.4-5.1); Total Protein 6.5 g/dL (5.7-8.2)
[2024-05-10 09:56] LABS: Alkaline Phosphatase 178 U/L (46-116); Carbon Dioxide 31 mmol/L (20-31); Chloride 98 mmol/L (98-107); Glucose 74 mg/dL (74-106); Potassium 3.3 mmol/L (3.5-5.1); Sodium 135 mmol/L (136-145)
--- NOTE | 2024-05-10 18:15 | DVHPN2 ---
Assessment/Plan Assessment/Plan ICU progress note Subjective 19 M with CP and seizure, nonverbal, adrenal insufficiency admitted for weakness and lip discoloration, intubated had cardiac arrest ROSC in 26 minutes c/b L hem othorax, s/p chest tube now extubated Patient was seen by me today during rounds, on room air. no air leak in water seal, cxr no pneumothorax. pending pulm decision to remove chest tube, stable to transfer to telemetry Objective Physical exam nonverbal on simple mask coarse breath sounds PERRLA s1 s2 RRR abdomen soft contractures Assessment and plan acute metabolic encephalopathy 2/2 sepsis focal seizure cerebral palsy corpus colostomy hx PEA arrest 05/03 ROSC 26 minutes s/p bronch pneumonia GP vs GN acute hypoxic respiratory failure s/p intubation, bronch with mucus plug r traumatic hemothorax s/p chest tube acute hypercapnic respiratory failure shock liver s/p gtube transaminitis paraphimosis adrenal insufficiency SIADH hypothyroidism c/w o2 supp maintain spo2 >94% c/w antiepileptics c/w hydrocortisone, levothyroxine breathing treatments chest tube will discuss removal with pulm c/w zosyn dc chest tubve per pulm Lines R chest tube Maintain potassium of 4, phosphate of 3 and magnesium of 2 Diet tube feeding GI prophylaxis protonix DVT prophylaxis lovenox Plan discussed with: Other (mopther) Date of Service: May 10, 2024 Billing Provider: LICHA BLOOD MD Common Visit Codes: [id number] INP/OBS CARE(HIGH) LICHA BLOOD MD May 10, 2024 18:15
[2024-05-10] MEDS: CALCIUM GLUC 1,000mg/50ml-NS 50 ML IV ONE (22:58)
--- NOTE | 2024-05-10 23:19 | DVHPN2 ---
Progress Note - Dictate Date Seen: May 10, 2024 Medical Necessity Reason Pt with a Central, PICC or Fol: Yes The following are medically ne: Central Line, Toney Catheter Reason for toney catheter: Strict I&O Subjective Patient seen and examined at bedside. On supplemental oxygen Overnight events reviewed. vital signs Vital Sign Date Time Temp Pulse Resp B/P (MAP) Pulse Ox O2 Delivery O2 Flow Rate FiO2 05/10/24 23:03 94 Room Air 0.0 05/10/24 23:03 21 05/10/24 21:00 97.8 62 16 119/68 (85) 97.8 Total Intake and Output 05/09/24 05/09/24 05/10/24 15:00 23:00 07:00 Intake Total 200 ml 563 ml 528 ml Output Total 435 ml 300 ml Balance 200 ml 128 ml 228 ml medications Current Medications Medications Dose Ordered Sig/Adri Route Start Time Stop Time Status Last Admin Dose Admin Piperacillin Sod/ Tazobactam Sod 100 ml @ 25 mls/hr Q8HR IV 05/02/24 08:00 05/10/24 23:12 25 MLS/HR Ipratropium [place] 0.5 mg Q4HPRN PRN NEB 05/02/24 14:15 05/10/24 10:14 0.5 MG Pantoprazole Sodium 40 mg DAILY IV 05/03/24 10:00 05/10/24 10:29 40 MG Levalbuterol HCl 0.625 mg Q4HPRN PRN NEB 05/02/24 16:15 05/10/24 10:14 0.625 MG Levetiracetam 100 ml @ 400 mls/hr BID IV 05/03/24 22:00 05/10/24 22:50 400 MLS/HR Patient Own Medication 5 ml BIDBL PEG 05/04/24 08:00 05/11/24 08:00 05/10/24 11:27 5 ML Dextrose 50 ml UD PRN IV 05/04/24 11:00 Enteral Nutritional Formula 1,000 ml 30ML/HR GT 05/04/24 13:15 05/04/24 13:50 1,000 ML Enteral Nutritional Formula 1,000 ml 30ML/HR GT 05/04/24 13:30 05/08/24 12:28 1,000 ML Hydrocortisone Sodium Succinate 25 mg Q12HR IV 05/04/24 14:45 05/10/24 22:26 25 MG Levothyroxine Sodium 25 mcg QAM@0600 PO 05/05/24 06:00 05/10/24 05:51 25 MCG Levothyroxine Sodium 137 mcg QAM@0600 PO 05/06/24 06:00 05/10/24 05:51 137 MCG Patient Own Medication 1 BID PO 05/06/24 10:30 05/10/24 22:58 1 Patient Own Medication 1 BID PO 05/06/24 10:30 05/10/24 22:59 1 Patient Own Medication 1 BID PO 05/06/24 10:30 05/10/24 11:00 1 Diagnostic Test (Pha) 1 strip Q6HR 05/07/24 12:00 05/10/24 16:56 1 STRIP Norepinephrine Bitartrate 250 ml @ 1.875 mls/ hr Q24H IV 05/07/24 12:00 05/08/24 12:03 3.75 MLS/HR Acetaminophen 650 mg Q6HP PRN PO 05/07/24 17:30 05/10/24 22:12 650 MG Phenobarbital 32.4 mg BID PO 05/07/24 22:00 05/10/24 22:25 32.4 MG Enoxaparin Sodium 40 mg DAILY SC 05/09/24 10:00 05/10/24 10:32 40 MG Diphenhydramine HCl 25 mg Q6HP PRN GT 05/09/24 01:15 objective Gen.: Patient lying in bed in no apparent distress. On supplemental oxygen. Head: Normocephalic, atraumatic Eyes: EOMI/PERRLA. Ears: Normal hearing. Normal anatomy. Neck/trachea: Trachea midline, supple. Nose: Normal external anatomy. Mouth: Moist mucous membranes. Chest: Decreased air entry bilaterally. No wheezing or rhonchi. Cardio vascular: Positive S1, positive S2. Regular rate and rhythm. Abdomen: Positive bowel sounds in all 4 quadrants. Soft, non-tender, non- distended. : Deferred. Rectal: Deferred Skin: Warm, dry. Extremities: 2+ radial pulses bilaterally. No lower extremity edema. Neuro: Awake, alert. No gross motor or sensory deficits. Cranial nerves II through XII intact. Gait not assessed. laboratory and microbiology Laboratory Tests 05/10/24 09:15 Test 05/10/24 09:15 Range/Units Serum Glucose 74 74-106 mg/dL Assessment/Plan Impression: Acute hypoxic respiratory failure Acute hypercarbic respiratory failure On mechanical ventilator Aspiration pneumonia Generalized weakness Status epilepticus Electrolyte imbalances Sepsis Cerebral palsy Lactic acidosis, resolved S/p cardiac arrest with ROSC Traumatic pleural effusion Atelectasis, compressive Events: Patient on supplemental oxygen , 5 liters/minute simple mask Taper O2 as tolerated CXR reviewed; demonstrates left apical pneumothorax, trace. Monitor chest tube output. Obtain chest x-ray in the morning for interval changes If no acute change in left pneumothorax on morning chest x-ray, we will consider removal Head of bed elevation Aspiration precautions. Labs and imaging reviewed. Rest of plan as noted below. Plan: Continue antibiotics. F/u cultures. Monitor renal function Monitor electrolytes. Supplement as necessary. Monitor ins and outs. Nutritional support. Accu-Cheks, ISS. GI/DVT prophylaxis. Prognosis: Poor given multiple comorbidities. Rest of plan per hospitalist and other consultants. Thank you ELIO Estrada for allowing me to participate in this patient's care. Further recommendations will depend on patient's clinical course. Please do not hesitate to contact me if you have any questions or concerns. This medical document was created using an electronic medical record system with [employer] dictation system. Although this document has been carefully reviewed, there may still be some phonetic and typographical errors. These areas are purely typographical due to imperfections of the software programs, and do not reflect any compromise in the patient's medical care. Dietary Evaluation Review Comments: 1. Recommend Jevity 1.2 @30ml/hr providing 40g protein, 864ckal which satifies his needs at 60% protein and 77% energy. 2. If pt is off vent, advance diet to pureed diet. 3. If blood glucose elevated, switch TF to Glucerna 1.2 30ml/hr (43gProtein 864 kcal), 4. If blood glucose elevated, advance diet to CCHO-60 pureed diet. Expected Outcomes/Goals: Meet 75% of his needs, graudla weight loss.Advance to pureed diet. Plan discussed with: Patient, Other (CLARI Smith) POOJA KEENAN MD May 10, 2024 23:19
[2024-05-11] VITALS (14 sets, daily range): BP systolic 86–137; BP diastolic 44–76; PULSE 81–104; RESP 16–22; TEMP 96.5–98.9; O2SAT 93–100
[2024-05-11] MEDS: POTASSIUM CHL 20MEQ/100ML 100 ML IV SCH (06:30)
[2024-05-11] MEDS: MAGNESIUM SULFATE 1GM/100ML 100 ML IV ONE (06:30)
[2024-05-11 07:34] LABS: Anion Gap 7 (5-15); Carbon Dioxide 30 mmol/L (20-31); Chloride 99 mmol/L (98-107); Potassium 3.9 mmol/L (3.5-5.1); Sodium 136 mmol/L (136-145)
[2024-05-11 07:40] LABS: BUN/Creatinine Ratio 22.6 (10.0-20.0); Blood Urea Nitrogen 14 mg/dL (9-23)
[2024-05-11 07:47] LABS: Glucose 86 mg/dL (74-106)
[2024-05-11 07:59] LABS: Hemoglobin 12.8 g/dL (13.5-17.5); Mean Corpuscular Volume 94.2 fL (80.0-100.0)
[2024-05-11 08:01] LABS: Hematocrit 36.6 % (41.0-53.0); Platelet Count (auto) 551 10^3/uL (140-450); Red Blood Cells 3.88 10^6/uL (4.5-5.90); Red Cell Distribution Width 13.2 % (11.8-14.3); White Blood Cell 7.8 10^3/uL (4.4-10.8)
[2024-05-11 08:13] LABS: Basophils % (manual) 0 (0.0-2.0); Blast Cells 0; Eosinophils % (manual) 0 (0-7); Metamyelocytes % 0; Promyelocytes % 0; Reactive Lymphocytes 0
[2024-05-11 09:14] LABS: Band Neutrophils % (manual) 4; Lymphocytes % (manual) 23 (10.0-50.0); Monocytes % (manual) 3 (0-12); Myelocytes % 1
[2024-05-11 09:15] LABS: Platelet Estimate Increased; RBC Morphology Normal
[2024-05-11] MEDS ORDERED: ALBUTEROL SULF 2.5 MG/0.5ML(0.5%) NEB SOLN NEB SCH (12:00)
[2024-05-11] MEDS: IPRATROPIUM BROM 0.5 MG/2.5ML INH SOL NEB SCH (12:49)
[2024-05-11] MEDS: LEVALBUTEROL HCL 1.25 MG/3 ML NEB NEB SCH (12:49)
--- NOTE | 2024-05-11 14:27 | MEDREC ---
[facility] ASP Intervention Section I [facility] ASP Intervention: Deescalate AB based on CS (11 DAYS ON ZOSYN - RESPIRATORY CULTURE POSITIVE FOR Haemophilus parahemolyticus SUSCEPTIBLE TO AMPICILLIN OR PENICILLIN - PLEASE CONSIDER DE-ESCLALATING) ZACH ALEXANDER PHARMACIST May 11, 2024 14:27
--- NOTE | 2024-05-11 15:27 | DVH ---
AP portable chest HISTORY: f/u pneumothorax Comparison: XY CHEST PORTABLE on DOS: 05/10/24, XY CHEST PORTABLE on DOS: 05/09/24, XY CHEST PORTABLE on DOS: 05/08/24 FINDINGS: Left-sided chest tube. There is a tiny left apical pneumothorax. Areas of atelectasis or i nfiltrate in the left lower lobe and right upper lobe. IMPRESSION: 1. Compared to previous exam there is a small residual left apical pneumothorax. Follow-up recommend ed
--- NOTE | 2024-05-11 17:50 | DVHDSRES ---
Discharge Summary Date of Admission Resident Creating Document: TOMMY RENEE RESIDENT May 01, 2024 at 23:18 Date of Discharge: May 11, 2024 Labs/Diagnostic Data: Laboratory Results Test 05/11/24 06:50 05/10/24 09:15 05/07/24 16:35 05/07/24 12:32 White Blood Count 7.8 10^3/uL (4.4-10.8) Red Blood Count 3.88 10^6/uL (4.5-5.90) Hemoglobin 12.8 g/dL (13.5-17.5) Hematocrit 36.6 % (41.0-53.0) Mean Corpuscular Volume 94.2 fL (80.0-100.0) Mean Corpuscular Hemoglobin 33.0 pg (28.0-32.0) Mean Corpuscular Hemoglobin Concent 35.0 g/dL (32.0-36.0) Red Cell Distribution Width 13.2 % (11.8-14.3) Platelet Count 551 10^3/uL (140-450) Mean Platelet Volume 6.2 fL (6.9-10.8) Neutrophils (%) (Auto) % (37.0-80.0) Lymphocytes (%) (Auto) % (10.0-50.0) Monocytes (%) (Auto) % (0.0-12.0) Basophils (%) (Auto) % (0.0-2.0) Neutrophils # (Auto) 10 ^3/uL (1.6-8.6) Lymphocytes # (Auto) 10 ^3/uL (0.4-5.4) Monocytes # (Auto) 10 ^3/uL (0-1.3) Differential Total Cells Counted 100.0 (100) Neutrophils % (Manual) 69 (37.0-80.0) Band Neutrophils % (Manual) 4 Lymphocytes % (Manual) 23 (10.0-50.0) Monocytes % (Manual) 3 (0-12) Eosinophils % (Manual) 0 (0-7) Basophils % (Manual) 0 (0.0-2.0) Metamyelocytes % (manual) 0 Myelocytes % (Manual) 1 Promyelocytes % (Manual) 0 Blast Cells % (Manual) 0 Reactive Lymphocytes 0 Platelet Estimate Increased Red Blood Cell Morphology Normal Sodium Level 136 mmol/L (136-145) Potassium Level 3.9 mmol/L (3.5-5.1) Chloride Level 99 mmol/L (98-107) Carbon Dioxide Level 30 mmol/L (20-31) Anion Gap 7 (5-15) Blood Urea Nitrogen 14 mg/dL (9-23) Creatinine 0.62 mg/dL (0.700-1.30) Glomerular Filtration Rate Calc 140 mL/min (>90) BUN/Creatinine Ratio 22.6 (10.0-20.0) Serum Glucose 86 mg/dL (74-106) Calcium Level 9.0 mg/dL (8.7-10.4) Eosinophils (%) (Auto) 1.9 % (0.0-7.0) Eosinophils # (Auto) 0.2 10 ^3/uL (0-0.8) Basophils # (Auto) 0 10 ^3/uL (0-0.2) Nucleated Red Blood Cells 0.3 % Phosphorus Level 3.3 mg/dL (2.4-5.1) Magnesium Level 1.8 mg/dL (1.6-2.6) Total Bilirubin 0.3 mg/dL (0.2-1.0) Aspartate Amino Transferase (AST) 33 U/L (13-40) Alanine Aminotransferase (ALT) 27 U/L (7-40) Alkaline Phosphatase 178 U/L (46-116) Total Protein 6.5 g/dL (5.7-8.2) Albumin 3.6 g/dL (3.2-4.8) Blood Gas Specimen Type Arterial Blood Gas Sample Site Right radial Blood Gas Patient Temperature 37.0 Arterial Blood Date Drawn [id number] Arterial Blood pH 7.480 (7.350-7.450) Arterial Blood Partial Pressure CO2 42.3 mmHg (35.0-48.0) Arterial Blood Partial Pressure O2 78.5 mmHg (83.0-108.0) Arterial Blood HCO3 30.8 mmol/L (21.0-28.0) Arterial Blood Oxygen Saturation 95.8 % (94.0-98.0) Arterial Blood Base Excess 6.6 mmol/L (-2.0-3.0) Arterial Blood Oxyhemoglobin 95.3 % (94.0-98.0) Arterial Blood Carboxyhemoglobin 0.5 % (0.5-1.5) Arterial Blood Methemoglobin 0.0 % (0.0-1.5) Anderson Test Modified Blood Gas Total Hemoglobin 14.60 g/dL (13.5-17.5) Blood Gas Modality Mask - bipap Blood Gas Spontaneous Rate 27 FiO2 % 50.0 Blood Gas Spontaneous Tidal Volume 208 Blood Gas EPAP 6 Blood Gas IPAP 15 POC Glucose 81 mg/dl (70-106) Test 05/07/24 11:52 05/07/24 10:40 05/07/24 06:08 05/06/24 14:21 Blood Gas Critical Value Read Back Yes Phenobarbital Level 24.2 ug/mL (15.0-40.0) Blood Gas Set Respiration Rate 14.0 Blood Gas Notified Whom faraz Light md Blood Gas Notified Time [id number] Blood Gas Notified By [employer] Preparation Worker betsy escobar Specimen Drawn By ranjit millard Test 05/06/24 07:50 05/04/24 11:22 05/04/24 11:21 05/03/24 04:45 Blood Gas Tidal Volume 350.0 Blood Gas Inspiratory Pressure 29.0 Blood Gas PEEP or CPAP 5.0 Bl Gas Inspiratory/Expiratory Ratio 1:2.9 Urine Color Yellow (Yellow) Urine Clarity Clear (Clear) Urine pH 6.0 (5.0-9.0) Urine Specific [place] 1.021 (1.001-1.035) Urine Protein Trace (Negative) Urine Ketones 1+ (Negative) Urine Blood 2+ /uL (Negative) Urine Nitrite Negative (Negative) Urine Bilirubin Negative (Negative) Urine Urobilinogen Normal mg/dL (Negative) Urine Leukocyte Esterase Trace /uL (Negative) Urine RBC 21 /hpf (0 - 3) Urine WBC 6 /hpf (0 - 3) Urine Squamous Epithelial Cells None seen /hpf (<5) Urine Bacteria Few /hpf (None Seen) Urine Mucus Few (None Seen) Urine Sperm Present /hpf (None Seen) Urine Glucose Normal mg/dL (Normal) Lactic Acid Level 1.0 mmol/L (0.4-2.0) Ammonia 40 umol/L (11-32) Test 05/02/24 17:50 05/02/24 12:50 05/01/24 23:59 05/01/24 21:35 Cortisol PM Sample 17.36 ug/dL (3.44-16.76) Influenza Type A Antigen Negative (Negative) Influenza Type B Antigen Negative (Negative) SARS-CoV-2 Antigen (Rapid) Negative (NEGATIVE) Levetiracetam Level 45.1 ug/mL (10.0-40.0) Blood Gas Liter Flow 60.00 Test 05/01/24 21:25 Prothrombin Time 11.8 sec (9.3-11.8) Prothrombin Time INR 1.12 (0.9-1.15) Activated Partial Thromboplast Time 43.4 SEC (24.5-34.5) Thyroid Stimulating Hormone (TSH) 0.01 uIU/mL (0.55-4.78) Free Thyroxine (T4) Calculated 1.20 ng/dL (0.89-1.76) Plasma/Serum Blood Alcohol < 3.0 mg/dL (<10) Other Laboratory Tests 05/11/24 06:50 Brief Hx & Hospital Course: This is a 19 Year old male patient with PMHx of cerebral palsy, focal seizures, wheelchair-bound, nonverbal, hypothyroidism, adrenal insufficiency, cognitive delay, SIADH, hyperammonemia who presented to the ER with a chief complaint of generalized weakness and discoloration of the lips. Per his aunt, who is the legal guardian, patient was experiencing cough/cold and fever and later became weak in his lips starting to get bluish therefore they decided to check into the ER. On arrival patient was afebrile, pulse 1 1 7, respiratory 25, blood pressure 77/38 mmHg, saturating 84. %. Labs showed WBC 4, sodium 132, potassium 3.3, lactic acid 3.2, cortisol 17, ammonia 71, TSH 0.01. Patient was intubated on 05/01 and the bronchus completed on 05/02 which showed right-sided atelectasis and mucus plugging in the R4 to [place] region. He was started on IV Zosyn, Keppra, phenobarbital, clobazam and levothyroxine and hydrocortisone 10 mg b.i.d.. Patient experienced code blue on the night of 05/03 and he received 9 doses of epinephrine, 1 dose of sodium bicarb and 1 mL of calcium chloride. Eleven rounds of CPR were performed and the patient achieved ROSC. Head CT completed which showed mild ventriculomegaly. Chest x-ray showed left lung white out, chest tube was placed. Past surgical history: Corpus colostomy in 11/22, G-tube as a child Home medications: Levothyroxine 137 mcg, phenobarbital, clobazam, Keppra, rufinamide, Cortef 10 mg, uri na packet bid Due to hospitalization, patient was diagnosed with ALOC secondary to sepsis secondary to pneumonia with group F Streptococcus and Haemophilus para haemolyticus. He was intubated on 05/01 in the right femoral CVC was placed. Patient started on IV Zosyn starting 05/02. Blood cultures and urine cultures were negative. He received his home dose of levothyroxine 137 mcg along with 25 mcg stress dose. Patient received hydrocortisone 25 mg q.12 daily. He underwent bronchoscopy to which showed right lower lobe atelectasis and R2 to R10 mucus plug. Neurology was consulted, recommended MRI brain which the patient did not tolerate because of movements. We continued his IV levetiracetam, phenobarbital and midazolam. Head CT completed 05/01 which showed mild ventriculomegaly. Head CT completed after cardiac arrest showed the same. 05/06 patient was extubated and started on BiPAP, received diuresis with Lasix which improved his respiratory status and he was switched to Oxymizer and N/C Later. Post cardiac arrest, patient developed left-sided hemothorax were with the chest tube was placed which is still draining. Chest tube taken out on 05/12. IV Zosyn was discontinued 05/12. 05/13-patient is hemodynamically stable, on room air, off pressors and sedation, alert, and therefore is being discharged home with the recommendation to follow up with his PCP within 7 days. Operations or Procedures ORDERING PHYSICIAN: RAMIREZ LOWERY MD PROCEDURE(s): HWOCT - HEAD WITHOUT CONTRAST REASON: ALOC ORDER NUMBER(s): [id number], ACCESSION NUMBER(s): [id number] EXAM: CT HEAD WITHOUT CONTRAST INDICATION: ALOC TECHNIQUE: CT of the head without intravenous contrast. Radiation Dose : 1. Head: CT Dose: CTDI volume is 52 mGy. Dose-length product is 114 mGy*cm The dose indicators for CT are the volume Computed Tomography (CT) Dose Index (CTDIvol) and the Dose Length Product (DLP), and are measured in units of mGy and mGy-cm, respectively. These indicators are not patient dose, but values generated from the CT scanner acquisition factors. The report includes radiation exposure data for exposures received during this examination. COMPARISON: HEAD WITHOUT CONTRAST on DOS: 08/26/21, HEAD WITHOUT CONTRAST on DOS: 05/24/19, CERVICAL WITHOUT CONTRAST on DOS: 05/24/19 FINDINGS: There is no evidence of acute intracranial hemorrhage, extra-axial collection, mass effect, midline shift, herniation or hydrocephalus. Mild ventriculomegaly, unchanged. The donovan-white differentiation is intact. Left temporal lobe encephalomalacia. The visualized paranasal sinuses and mastoid air cells are clear. Right frontal craniotomy. IMPRESSION: Mild ventriculomegaly, unchanged. Radiation optimization: All CT scans at this facility use at least one of these dose optimization techniques: automated exposure control mA and/or kV adjustment per patient size (includes targeted exams where dose is matched to clinical indication) or iterative reconstruction. ATED BY: ZANDER MALHOTRA MD DICTATED DATE/TIME: 05/02/24501 SIGNED BY: ZANDER MALHOTRA MD SIGNED DATE/TIME: 05/02/24501 CC: ORDERING PHYSICIAN: KAIA BARROSO MD PROCEDURE(s): HWOCT - HEAD WITHOUT CONTRAST REASON: S/P CPR ORDER NUMBER(s): [id number], ACCESSION NUMBER(s): [id number] EXAM: CT HEAD WITHOUT CONTRAST INDICATION: S/P CPR TECHNIQUE: CT of the head without intravenous contrast. Radiation Dose : 1. Head: CT Dose: CTDI volume is 53.17 mGy. Dose-length product is 941.44 mGy*cm The dose indicators for CT are the volume Computed Tomography (CT) Dose Index (CTDIvol) and the Dose Length Product (DLP), and are measured in units of mGy and mGy-cm, respectively. These indicators are not patient dose, but values generated from the CT scanner acquisition factors. The report includes radiation exposure data for exposures received during this examination. COMPARISON: CT HEAD WITHOUT CONTRAST on DOS: 05/02/24, HEAD WITHOUT CONTRAST on DOS: 08/26/21, HEAD WITHOUT CONTRAST on DOS: 05/24/19, CERVICAL WITHOUT CONTRAST on DOS: 05/24/19 FINDINGS: There is no evidence of acute intracranial hemorrhage, extra-axial collection, mass effect, midline shift, herniation or hydrocephalus. Left temporal lobe encephalomalacia. Stable mild ventriculomegaly The donovan-white differentiation is intact. Patchy periventricular and subcortical white matter hypoattenuation is nonspecific but may be related to small vessel ischemic disease. The visualized paranasal sinuses and mastoid air cells are clear. Right frontal craniotomy IMPRESSION: 1. No acute intracranial abnormality. 2. Stable mild ventriculomegaly. Radiation optimization: All CT scans at this facility use at least one of these dose optimization techniques: automated exposure control mA and/or kV adjustment per patient size (includes targeted exams where dose is matched to clinical indication) or iterative reconstruction. ATED BY: NATE ALEXIS MD DICTATED DATE/TIME: 05/04/241608 SIGNED BY: NATE ALEXIS MD SIGNED DATE/TIME: 05/04/241608 CC: Condition at Discharge: Stable Final Diagnosis/Problems List Septic shock secondary to pneumonia, community-acquired, Gram-positive and negative status post intubation and mechanical ventilation, extubated 05/06 Acute hypoxic respiratory failure secondary to above Acute hypercarbic respiratory failure secondary to above Probable aspiration pneumonia Right-sided traumatic hemothorax status post chest tube placement Altered level of consciousness secondary to sepsis secondary to pneumonia Acute metabolic encephalopathy secondary to hyperammonemia and sepsis Focal seizure disorder Status post cardiac arrest 05/03 Lactic acidosis Pulmonary Edema Wheelchair-bound Nonverbal Cognitive delay 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 Patient was counseled about treatment plan, medications, possible side effects, patientverbalized understanding. All questions were answered to the best of my ability. This discharge took greater then 30 minutes in planning, reviewing documentation, counseling the patient, and discussing with other team members." ASSESSMENT ASSESSMENT Assessment Septic shock 2/2 pneumonia R hemothorax 2/2 to trauma TOMMY MAK RESIDENT May 11, 2024 17:50
[2024-05-11] MEDS: SOD CHL 0.45% 1,000 ML IV SCH (20:09)
--- NOTE | 2024-05-11 20:09 | DVHPNRES ---
Progress Note Date Seen: May 11, 2024 Resident Creating Document: TOMMY RENEE RESIDENT Medical Necessity Reason Pt with a Central, PICC or Fol: Yes The following are medically ne: Central Line, Toney Catheter Reason for toney catheter: Strict I&O Subjective Review of Systems This is a 19 Year old male patient with PMHx of cerebral palsy, focal seizures, wheelchair-bound, nonverbal, hypothyroidism, adrenal insufficiency, cognitive delay, SIADH, hyperammonemia who presented to the ER with a chief complaint of generalized weakness and discoloration of the lips. Per his aunt, who is the legal guardian, patient was experiencing cough/cold and fever and later became weak in his lips starting to get bluish therefore they decided to check into the ER. On arrival patient was afebrile, pulse 1 1 7, respiratory 25, blood pressure 77/38 mmHg, saturating 84. %. Labs showed WBC 4, sodium 132, potassium 3.3, lactic acid 3.2, cortisol 17, ammonia 71, TSH 0.01. Patient was intubated on 05/01 and the bronchus completed on 05/02 which showed right-sided atelectasis and mucus plugging in the R4 to [place] region. He was started on IV Zosyn, Keppra, phenobarbital, clobazam and levothyroxine and hydrocortisone 10 mg b.i.d.. Patient experienced code blue on the night of 05/03 and he received 9 doses of epinephrine, 1 dose of sodium bicarb and 1 mL of calcium chloride. Eleven rounds of CPR were performed and the patient achieved ROSC. Head CT completed which showed mild ventriculomegaly. Chest x-ray showed left lung white out, chest tube was placed. Past surgical history: Corpus colostomy in 11/22, G-tube as a child Home medications: Levothyroxine 137 mcg, phenobarbital, clobazam, Keppra, rufinamide, Cortef 10 mg, uri na packet bid Patient seen and examined at the bedside. Patient is on Levophed, fentanyl, Versed. Has a right fem CBC. Overnight temperature was 99.3. Chest x-ray shows bilateral patchy opacity. Right lower opacity improved. Left whiteout improved. Chest tube seen. Respiratory culture shows beta-hemolytic streptococci. LFTs up trending. Urology consulted for swollen foreskin. 05/05 -overnight blue geraldine Neurology saw the patient, recommended MRI which the patient could not tolerate. T-max 99.0 F, intermittent bradycardia into 50s. Liver ultrasound is unremarkable. Patient is off Levophed since 4:00 a.m. on fentanyl and Versed. CPAP trial in the a.m.. Return of sedation in a.m., fentanyl 1st 10 Versed, add patient's seizure medications. 05/06 - patient seen and examined at the bedside. Sedation was turned off and patient was started on his home meds including clobazam, rufinamide and diacomit. Chest tube draining 25 cc. Completed CPAP trial, successfully extubated 05/06. Received 2 doses of IV Lasix 20 mg. Patient is on BiPAP starting 4:00 p.m. Spoke to [facility], willing to accept pending bed availability. 05/07 - overnight FiO2 increased from 60% to 80% on BiPAP. ABG shows respiratory acidosis with pCO2 70. ABG changes made 17/09 and FiO2 lower to 50%, ABG shows resolving respiratory acidosis. Chest tube draining 10 cc overnight. On Levophed 2. Patient received 2 doses of Lasix 20 mg IV. Patient urinated 2500 cc. 05/08-overnight no events reported. Patient is currently on Levophed of 2. Saturating 100% on 6 L Oxymizer. IV NS 500 cc bolus administered. Overnight, no output from the chest tube, Chest tube clamped. WBC increased to 10, platelets increased to for 499. 05/11 - patient seen and examined at the bedside. Chest tube draining 60 cc today. DC Levaquin. Patient has been discharged to [facility]. Objective vital signs Vital Sign Date Time Temp Pulse Resp B/P (MAP) Pulse Ox O2 Delivery O2 Flow Rate FiO2 05/11/24 18:43 100 20 100 05/11/24 18:33 Room Air 05/11/24 18:33 0 21 05/11/24 17:00 98.9 119/76 (90) 98.9 Total Intake and Output 05/10/24 05/10/24 05/11/24 15:00 23:00 07:00 Intake Total 25 ml 80 ml 200 ml Output Total 525 ml Balance 25 ml -445 ml 200 ml medications Current Medications Medications Dose Ordered Sig/Adri Route Start Time Stop Time Status Last Admin Dose Admin Piperacillin Sod/ Tazobactam Sod 100 ml @ 25 mls/hr Q8HR IV 05/02/24 08:00 05/11/24 14:00 25 MLS/HR Ipratropium [place] 0.5 mg Q4HPRN PRN NEB 05/02/24 14:15 05/11/24 03:19 0.5 MG Pantoprazole Sodium 40 mg DAILY IV 05/03/24 10:00 05/11/24 12:03 40 MG Levalbuterol HCl 0.625 mg Q4HPRN PRN NEB 05/02/24 16:15 05/11/24 03:19 0.625 MG Levetiracetam 100 ml @ 400 mls/hr BID IV 05/03/24 22:00 05/11/24 10:00 400 MLS/HR Dextrose 50 ml UD PRN IV 05/04/24 11:00 Enteral Nutritional Formula 1,000 ml 30ML/HR GT 05/04/24 13:15 05/04/24 13:50 1,000 ML Enteral Nutritional Formula 1,000 ml 30ML/HR GT 05/04/24 13:30 05/08/24 12:28 1,000 ML Hydrocortisone Sodium Succinate 25 mg Q12HR IV 05/04/24 14:45 05/11/24 12:04 25 MG Levothyroxine Sodium 25 mcg QAM@0600 PO 05/05/24 06:00 05/11/24 06:51 25 MCG Levothyroxine Sodium 137 mcg QAM@0600 PO 05/06/24 06:00 05/11/24 06:53 112 MCG Patient Own Medication 1 BID PO 05/06/24 10:30 05/11/24 10:00 1 Patient Own Medication 1 BID PO 05/06/24 10:30 05/11/24 10:00 1 Patient Own Medication 1 BID PO 05/06/24 10:30 05/11/24 10:00 1 Diagnostic Test (Pha) 1 strip Q6HR 05/07/24 12:00 05/11/24 18:00 1 STRIP Acetaminophen 650 mg Q6HP PRN PO 05/07/24 17:30 05/11/24 12:00 650 MG Phenobarbital 32.4 mg BID PO 05/07/24 22:00 05/11/24 12:03 32.4 MG Enoxaparin Sodium 40 mg DAILY SC 05/09/24 10:00 05/11/24 12:02 40 MG Diphenhydramine HCl 25 mg Q6HP PRN GT 05/09/24 01:15 Ipratropium [place] 0.5 mg Q6HR NEB 05/11/24 12:00 05/11/24 18:33 0.5 MG Levalbuterol HCl 0.625 mg Q6HR NEB 05/11/24 12:00 05/11/24 18:33 0.625 MG Sodium Chloride 1,000 ml @ 500 mls/hr Q2H IV 05/11/24 19:15 UNV Examination Young male patient lying in bed, extubated General: afebrile, palor, mucosae are moist Cardiovascular: Regular S1 and S2. No murmurs, gallops or rubs. No JVD elevation. No pedal edema Respiratory: Decreased bibasilar breath sounds, saturating 95 8 L NC. Chest tube attached. Abdomen: Soft, nontender, nondistended, hypoactive bowel sounds, no rebound tenderness, no organomegaly, no masses. Peg tube seen Genitourinary: Deferred MSK/skin: Skin is dry and warm. Left feet has blister on ankle. Neurological: No motor, no sensitive deficits, normal speech. Pupils are isocoric and reactive. laboratory and microbiology Laboratory Tests 05/11/24 06:50 Test 05/11/24 06:50 Range/Units Serum Glucose 86 74-106 mg/dL Microbiology Date/Time Source Procedure Growth Status 05/03/24 16:10 Nose MRSA Screen - Final Complete 05/02/24 17:50 Blood Blood Culture - Final NO GROWTH AFTER 5 DAYS OF INCUBATION. Complete 05/02/24 16:20 Voided Urine Urine Culture - Final Complete 05/01/24 23:40 Sputum Gram Stain - Final Complete 05/01/24 23:40 Respiratory Culture - Final Haemophilus parahemolyticus Complete Labs and/or images reviewed: Labs reviewed by me, Image(s) reviewed by me Problem List/Assessment/Plan Problem List/Assessment/Plan NEUROLOGY Altered level of consciousness secondary to sepsis secondary to pneumonia Acute metabolic encephalopathy secondary to hyperammonemia and sepsis Focal seizure disorder Wheelchair-bound Nonverbal Cognitive delay Corpus colostomy 11/[address] completed 05/01, shows mild ventriculomegaly Head CT completed 05/04 shows stable mild ventriculomegaly Continue IV levetiracetam, phenobarbital, midazolam 05/07-Phenobarbital change from 32.4 mg TID to b.i.d. Neurology-blue geraldine consulted, recommended MRI brain which Patient did not tolerate CARDIOVASCULAR Status post cardiac arrest 05/03 Lactic acidosis Pulmonary Edema 05/06-currently on BiPAP RESPIRATORY Septic shock secondary to pneumonia, community-acquired, Gram-positive and negative status post intubation and mechanical ventilation, extubated 05/06 Acute hypoxic respiratory failure secondary to above Acute hypercarbic respiratory failure secondary to above Probable aspiration pneumonia Right-sided traumatic hemothorax status post chest tube placement Atelectasis Respiratory acidosis-resolving Left apical pneumothorax Bronchoscopy completed 05/02 shows right lower lobe atelectasis and R4-R10 mucus plug. Continue nebulized treatment with levalbuterol and ipratropium 05/06, patient is extubated currently on BiPAP. Received racemic epinephrine after extubation. 05/07 - received 2 doses of 20 mg Lasix IV. GI Hyperammonemia Shock liver Status post G-tube as a child Transaminitis Monitor Liver ultrasound unremarkable /KIDNEY Paraphimosis Urology consulted-manual reduction of paraphimosis done tolerated well. ENDO Adrenal insufficiency Hyponatremia/SIADH Hypothyroidism Continue IV levothyroxine 137 mcg and 25 mcg daily Continue hydrocortisone 25 mg q.12 daily, patient takes 10 mg p.o. at home ID Septic shock secondary to pneumonia 05/02 blood culture negative Respiratory culture shows beta-hemolytic group F Streptococcus Urine culture negative Discontinued IV Zosyn daily starting 05/02 till 05/11 HEM-ONCO LINES Intubation 05/01 Right femoral CVC line 05/01, repositioned 05/07 DRIPS LEVOPHED 00 FENTANYL 0 VERSED 0 NUTRITION: Jevity 1.2 DIMPLE 30 mL/hour DVT: Lovenox 40 mg sc daily Last bowel movement: 05/05 End of note Goals of care/advance care planning; FULL CODE; discussed on for 24 minutes. PUD prophylaxis: Continue pantoprazole 40 mg daily IV DVT prophylaxis: Continue enoxaparin 40 mg daily SC Plan discussed with patient's aunt at bedside in which all questions have been answered Case discussed with Dr. Barroso. Extubated 05/08. Stable for transferred to [facility]. Critical care time including chart review, discussing with patient's family excluding procedure: 49 minutes Plan discussed with: Patient, Other (aunt at the bedside) My Orders My Orders Orders - TOMMY RENEE Procedure Category Date Status Time Chest Portable XY 05/11/24 Resulted 09:35 Discharge DISCHARGE 05/11/24 Transmitted 17:46 * [facility] CONS 05/11/24 Transmitted Consult Dietary Evaluation Review Comments: 1. Recommend Jevity 1.2 @30ml/hr providing 40g protein, 864ckal which satifies his needs at 60% protein and 77% energy. 2. If pt is off vent, advance diet to pureed diet. 3. If blood glucose elevated, switch TF to Glucerna 1.2 30ml/hr (43gProtein 864 kcal), 4. If blood glucose elevated, advance diet to CCHO-60 pureed diet. Expected Outcomes/Goals: Meet 75% of his needs, graudla weight loss.Advance to pureed diet. Date of Service: May 11, 2024 Billing Provider: KAIA BARROSO MD Common Visit Codes: [id number] CARE 30-74 MIN TOMMY RENEE May 11, 2024 20:09 KAIA BARROSO MD May 12, 2024 11:29
[2024-05-11] MEDS: diphenhdrAMINE HCL 12.5 MG/5 ML UD GT PRN (23:03)
[2024-05-12] VITALS (14 sets, daily range): BP systolic 94–134; BP diastolic 53–81; PULSE 64–110; RESP 14–20; TEMP 96.5–99.9; O2SAT 90–100
--- NOTE | 2024-05-12 08:25 | DVH ---
CHEST RADIOGRAPH Indication: Follow up Technique: Single frontal view of the chest was obtained Comparison: XY CHEST PORTABLE on DOS: 05/11/24, XY CHEST PORTABLE on DOS: 05/10/24, XY CHEST PORTABLE on DOS: 05/09/24, XY CHEST PORTABLE on DOS: 05/08/24, XY CHEST XRAY 1 VIEW on DOS: 05/07/24, XY CHEST PORTABLE on DOS: 05/11/24 FINDINGS: Left-sided chest tube. There is a tiny left apical pneumothorax. Areas of atelectasis or infiltrate in the left lower lobe and right upper lobe. IMPRESSION: 1. Compared to previous exam there is a small residual left apical pneumothorax. Follow-up recommend ed
[2024-05-12] MEDS ORDERED: levETIRAcetam 500 MG TAB GT SCH (13:45)
--- NOTE | 2024-05-12 15:29 | DVH ---
CHEST RADIOGRAPH Indication: Follow up Technique: Single frontal view of the chest was obtained Comparison: XY CHEST XRAY 1 VIEW on DOS: 05/12/24, XY CHEST PORTABLE on DOS: 05/11/24, XY CHEST PORTABLE on DOS: 05/10/24 FINDINGS: Lines and Tubes: None Lungs: No focal consolidation. Linear density over the bilateral lower lung zones and right mid lung zone. Bronchovascular crowding due to low lung volumes Pleura: No effusion. No pneumothorax. Cardiomediastinal contours: Unremarkable Bones: No acute osseous abnormality. IMPRESSION: Bilateral lower lung zone and right mid lung zone atelectasis.
[2024-05-12] MEDS: FUROSEMIDE 20 MG/2 ML VIAL IV ONE (16:15)
--- NOTE | 2024-05-12 16:15 | DVHPNRES ---
Progress Note Date Seen: May 12, 2024 Resident Creating Document: TOMMY RENEE RESIDENT Medical Necessity Reason Pt with a Central, PICC or Fol: Yes The following are medically ne: Central Line, Toney Catheter Reason for toney catheter: Strict I&O Subjective Review of Systems This is a 19 Year old male patient with PMHx of cerebral palsy, focal seizures, wheelchair-bound, nonverbal, hypothyroidism, adrenal insufficiency, cognitive delay, SIADH, hyperammonemia who presented to the ER with a chief complaint of generalized weakness and discoloration of the lips. Per his aunt, who is the legal guardian, patient was experiencing cough/cold and fever and later became weak in his lips starting to get bluish therefore they decided to check into the ER. On arrival patient was afebrile, pulse 1 1 7, respiratory 25, blood pressure 77/38 mmHg, saturating 84. %. Labs showed WBC 4, sodium 132, potassium 3.3, lactic acid 3.2, cortisol 17, ammonia 71, TSH 0.01. Patient was intubated on 05/01 and the bronchus completed on 05/02 which showed right-sided atelectasis and mucus plugging in the R4 to [place] region. He was started on IV Zosyn, Keppra, phenobarbital, clobazam and levothyroxine and hydrocortisone 10 mg b.i.d.. Patient experienced code blue on the night of 05/03 and he received 9 doses of epinephrine, 1 dose of sodium bicarb and 1 mL of calcium chloride. Eleven rounds of CPR were performed and the patient achieved ROSC. Head CT completed which showed mild ventriculomegaly. Chest x-ray showed left lung white out, chest tube was placed. Past surgical history: Corpus colostomy in 11/22, G-tube as a child Home medications: Levothyroxine 137 mcg, phenobarbital, clobazam, Keppra, rufinamide, Cortef 10 mg, uri na packet bid Patient seen and examined at the bedside. IV KEPPRA CHANGE TO G-TUBE. DC chest tube. Chest x-ray post chest tube removal shows minimal vascular congestion, 1 dose of IV Lasix 10 mg ordered. Objective vital signs Vital Sign Date Time Temp Pulse Resp B/P (MAP) Pulse Ox O2 Delivery O2 Flow Rate FiO2 05/12/24 13:05 98.4 97 18 134/75 (94) 94 98.4 05/12/24 07:41 Room Air 0.0 05/12/24 07:41 21 Total Intake and Output 05/11/24 05/11/24 05/12/24 15:00 23:00 07:00 Intake Total 100 ml 100 ml Balance 100 ml 100 ml medications Current Medications Medications Dose Ordered Sig/Adri Route Start Time Stop Time Status Last Admin Dose Admin Ipratropium Joseph 0.5 mg Q4HPRN PRN NEB 05/02/24 14:15 05/11/24 03:19 0.5 MG Pantoprazole Sodium 40 mg DAILY IV 05/03/24 10:00 05/12/24 10:33 40 MG Levalbuterol HCl 0.625 mg Q4HPRN PRN NEB 05/02/24 16:15 05/11/24 03:19 0.625 MG Dextrose 50 ml UD PRN IV 05/04/24 11:00 Enteral Nutritional Formula 1,000 ml 30ML/HR GT 05/04/24 13:15 05/04/24 13:50 1,000 ML Enteral Nutritional Formula 1,000 ml 30ML/HR GT 05/04/24 13:30 05/08/24 12:28 1,000 ML Hydrocortisone Sodium Succinate 25 mg Q12HR IV 05/04/24 14:45 05/12/24 10:33 25 MG Levothyroxine Sodium 25 mcg QAM@0600 PO 05/05/24 06:00 05/12/24 05:51 25 MCG Levothyroxine Sodium 137 mcg QAM@0600 PO 05/06/24 06:00 05/12/24 05:51 112 MCG Patient Own Medication 1 BID PO 05/06/24 10:30 05/12/24 10:00 1 Patient Own Medication 1 BID PO 05/06/24 10:30 05/12/24 10:00 1 Patient Own Medication 1 BID PO 05/06/24 10:30 05/12/24 10:00 1 Diagnostic Test (Pha) 1 strip Q6HR 05/07/24 12:00 05/12/24 12:00 1 STRIP Acetaminophen 650 mg Q6HP PRN PO 05/07/24 17:30 05/11/24 22:15 650 MG Phenobarbital 32.4 mg BID PO 05/07/24 22:00 05/12/24 10:34 32.4 MG Enoxaparin Sodium 40 mg DAILY SC 05/09/24 10:00 05/11/24 12:02 40 MG Diphenhydramine HCl 25 mg Q6HP PRN GT 05/09/24 01:15 05/11/24 23:03 25 MG Ipratropium Joseph 0.5 mg Q6HR NEB 05/11/24 12:00 05/12/24 07:41 0.5 MG Levalbuterol HCl 0.625 mg Q6HR NEB 05/11/24 12:00 05/12/24 07:41 0.625 MG Levetiracetam 1,500 mg BID GT 05/12/24 22:00 Examination Young male patient lying in bed, extubated General: afebrile, palor, mucosae are moist Cardiovascular: Regular S1 and S2. No murmurs, gallops or rubs. No JVD elevation. No pedal edema Respiratory: Decreased bibasilar breath sounds, saturating 95 8 L NC. Chest tube removed. Abdomen: Soft, nontender, nondistended, hypoactive bowel sounds, no rebound tenderness, no organomegaly, no masses. Peg tube seen Genitourinary: Deferred MSK/skin: Skin is dry and warm. Left feet has blister on ankle. Neurological: No motor, no sensitive deficits, normal speech. Pupils are isocoric and reactive. laboratory and microbiology Laboratory Tests 05/11/24 06:50 Test 05/11/24 06:50 Range/Units Serum Glucose 86 74-106 mg/dL Microbiology Date/Time Source Procedure Growth Status 05/03/24 16:10 Nose MRSA Screen - Final Complete 05/02/24 17:50 Blood Blood Culture - Final NO GROWTH AFTER 5 DAYS OF INCUBATION. Complete 05/02/24 16:20 Voided Urine Urine Culture - Final Complete 05/01/24 23:40 Sputum Gram Stain - Final Complete 05/01/24 23:40 Respiratory Culture - Final Haemophilus parahemolyticus Complete Labs and/or images reviewed: Labs reviewed by me, Image(s) reviewed by me Problem List/Assessment/Plan Problem List/Assessment/Plan NEUROLOGY Altered level of consciousness secondary to sepsis secondary to pneumonia Acute metabolic encephalopathy secondary to hyperammonemia and sepsis Focal seizure disorder Wheelchair-bound Nonverbal Cognitive delay Corpus colostomy 11/[address] completed 05/01, shows mild ventriculomegaly Head CT completed 05/04 shows stable mild ventriculomegaly Continue IV phenobarbital, midazolam IV Keppra change to p.o. 05/07-Phenobarbital change from 32.4 mg TID to b.i.d. Neurology-jarett chandler consulted, recommended MRI brain which Patient did not tolerate CARDIOVASCULAR Status post cardiac arrest 05/03 Lactic acidosis Pulmonary Edema 05/06-currently on BiPAP RESPIRATORY Septic shock secondary to pneumonia, community-acquired, Gram-positive and negative status post intubation and mechanical ventilation, extubated 05/06 Acute hypoxic respiratory failure secondary to above Acute hypercarbic respiratory failure secondary to above Probable aspiration pneumonia Right-sided traumatic hemothorax status post chest tube placement till 05/12 Atelectasis Respiratory acidosis-resolving Left apical pneumothorax Bronchoscopy completed 05/02 shows right lower lobe atelectasis and R4-R10 mucus plug. Continue nebulized treatment with levalbuterol and ipratropium 05/06, patient is extubated currently on BiPAP. Received racemic epinephrine after extubation. 05/07 - received 2 doses of 20 mg Lasix IV. GI Hyperammonemia Shock liver Status post G-tube as a child Transaminitis Monitor Liver ultrasound unremarkable /KIDNEY Paraphimosis Urology consulted-manual reduction of paraphimosis done tolerated well. ENDO Adrenal insufficiency Hyponatremia/SIADH Hypothyroidism Continue IV levothyroxine 137 mcg and 25 mcg daily Continue hydrocortisone 25 mg q.12 daily, patient takes 10 mg p.o. at home ID Septic shock secondary to pneumonia 05/02 blood culture negative Respiratory culture shows beta-hemolytic group F Streptococcus Urine culture negative Discontinued IV Zosyn daily starting 05/02 till 05/11 HEM-ONCO LINES Intubation 05/01 Right femoral CVC line 05/01, repositioned 05/07 DRIPS LEVOPHED 00 FENTANYL 0 VERSED 0 NUTRITION: Jevity 1.2 DIMPLE 30 mL/hour DVT: Lovenox 40 mg sc daily Last bowel movement: 05/05 End of note Goals of care/advance care planning; FULL CODE; discussed on for 24 minutes. PUD prophylaxis: Continue pantoprazole 40 mg daily IV DVT prophylaxis: Continue enoxaparin 40 mg daily SC Plan discussed with patient's aunt at bedside in which all questions have been answered Case discussed with Dr. Barroso. Extubated 05/08. Plan discussed with: Patient, Other ( aunt at the bedside) My Orders My Orders Orders - TOMMY RENEE Procedure Category Date Status Time Discharge DISCHARGE 05/11/24 Transmitted 17:46 * Service Desk Specialist CONS 05/11/24 Transmitted Consult Chest Xray 1 View XY 05/12/24 Resulted 04:00 * Swallow Request ST 05/11/24 Transmitted 20:09 Chest Xray 1 View XY 05/12/24 Resulted 14:26 Chest Xray 1 View XY 05/13/24 Logged 04:00 Levetiracetam Oral PHA 05/12/24 In Process Solution (Keppra Oral 22:00 Dietary Evaluation Review Comments: 1. Recommend Jevity 1.2 @30ml/hr providing 40g protein, 864ckal which satifies his needs at 60% protein and 77% energy. 2. If pt is off vent, advance diet to pureed diet. 3. If blood glucose elevated, switch TF to Glucerna 1.2 30ml/hr (43gProtein 864 kcal), 4. If blood glucose elevated, advance diet to CCHO-60 pureed diet. Expected Outcomes/Goals: Meet 75% of his needs, graudla weight loss.Advance to pureed diet. Date of Service: May 12, 2024 Billing Provider: KAIA BARROSO MD Common Visit Codes: [id number] INP/OBS CARE(HIGH) Secondary Visit Codes: [id number] CARE PLAN 30 MINUTES TOMMY RENEE May 12, 2024 16:15 KAIA BARROSO MD May 13, 2024 11:09
[2024-05-12] MEDS: FUROSEMIDE 40 MG TAB GT ONE (19:10)
[2024-05-12] MEDS ORDERED: LORazepam 2MG/ML-1ML VIAL IV PRN (20:00)
[2024-05-12] MEDS ORDERED: CLINIMIX PER PHARMACY 0 ML IV SCH (21:30)
[2024-05-12] MEDS: AMINO ACID INFUSION IN D5W 1,000 ML IV SCH (22:00)
[2024-05-12] MEDS ORDERED: DEXTROSE (50%) 50ML SYRG IV SCH (22:00)
[2024-05-12] MEDS: levETIRAcetam 500 MG/5ML ORAL SOLN UD GT SCH (22:30)
[2024-05-12] MEDS: PHENobarbital 20 MG/5 ML UD GT SCH (22:31)
[2024-05-13] MEDS: InsuLIN REG 1unit/0.01ml Soln (100units/ml) SC SCH
[2024-05-13] MEDS: ACCU-CHEK COMFORT CURVE STRIP VI SCH (00:29)
[2024-05-13 01:00] VITALS: BP 104/52; PULSE 104; RESP 20; TEMP 97.6; O2SAT 96
[2024-05-13] MEDS ORDERED: TRAZ-227 PO (02:07)
[2024-05-13] MEDS: traZODone HCL 50 MG TAB GT ONE (02:22)
[2024-05-13 05:00] VITALS: BP 95/46; PULSE 108; RESP 18; TEMP 97.4; O2SAT 93
[2024-05-13] MEDS: LEVOTHYROXINE SODIUM 112 MCG TAB GT SCH (05:22)
[2024-05-13] MEDS: LEVOTHYROXINE SODIUM 25 MCG TAB GT SCH (05:22)
--- NOTE | 2024-05-13 05:22 | DVH ---
CHEST RADIOGRAPH Indication: Follow up Technique: Single frontal view of the chest was obtained COMPARISON: XY CHEST XRAY 1 VIEW on DOS: 05/12/24, XY CHEST XRAY 1 VIEW on DOS: 05/12/24, XY CHEST PORTAB LE on DOS: 05/11/24, XY CHEST PORTABLE on DOS: 05/10/24, XY CHEST PORTABLE on DOS: 05/09/24 FINDINGS: Lines and Tubes: None Lungs: Left lower lobe subsegmental atelectasis. Mild diffuse congestion. Pleura: No effusion. No pneumothorax. Cardiomediastinal contours: Unremarkable Bones: Unremarkable IMPRESSION: No appreciable pneumothorax
[2024-05-13 06:23] VITALS: O2SAT 98
--- NOTE | 2024-05-13 07:01 | ECG ---
[facility] Test Date: 2024-05-02 Test Time: 17:23:10 Pat Name: BRANDIE COMBS Department: ER Room: 0208T A Gender: M [employer]: JAYCOB : 2005 Requested By: RAMIREZ LOWERY Order Number: [id number] Reading MD: Bruce Mcadams Measurements Intervals [place] Rate: 135 P: 60 [place]: 123 QRS: 14 QRSD: 85 T: 41 QT: 295 QTc: 443 Interpretive Statements Sinus tachycardia Low voltage, extremity and precordial leads RSR' in V1 or V2, probably normal variant Nonspecific T abnormalities, anterior leads Baseline wander in lead(s) V6 Electronically Signed On 05-14-2024 9:30:56 PST by Bruce Mcadams Please click the below link to view image of tracing.
--- NOTE | 2024-05-13 11:28 | DVHPNRES ---
Progress Note Date Seen: May 13, 2024 Resident Creating Document: TOMMY RENEE RESIDENT Medical Necessity Reason Pt with a Central, PICC or Fol: No Reason for toney catheter: Strict I&O Subjective Review of Systems Patient seen and examined at the bedside. No acute complaint. Objective vital signs Vital Sign Date Time Temp Pulse Resp B/P (MAP) Pulse Ox O2 Delivery O2 Flow Rate FiO2 05/13/24 05:00 97.4 108 18 95/46 (62) 93 97.4 05/12/24 21:03 Room Air 05/12/24 21:03 0 21 Total Intake and Output 05/12/24 05/12/24 05/13/24 15:00 23:00 07:00 Intake Total 100 ml Output Total 650 ml 450 ml Balance 100 ml -650 ml -450 ml medications Current Medications Medications Dose Ordered Sig/Adri Route Start Time Stop Time Status Last Admin Dose Admin Ipratropium [place] 0.5 mg Q4HPRN PRN NEB 05/02/24 14:15 05/11/24 03:19 0.5 MG Pantoprazole Sodium 40 mg DAILY IV 05/03/24 10:00 05/12/24 10:33 40 MG Levalbuterol HCl 0.625 mg Q4HPRN PRN NEB 05/02/24 16:15 05/11/24 03:19 0.625 MG Hydrocortisone Sodium Succinate 25 mg Q12HR IV 05/04/24 14:45 05/12/24 22:31 25 MG Patient Own Medication 1 BID PO 05/06/24 10:30 05/11/24 22:00 1 Patient Own Medication 1 BID PO 05/06/24 10:30 05/11/24 22:00 1 Patient Own Medication 1 BID PO 05/06/24 10:30 05/11/24 22:00 1 Acetaminophen 650 mg Q6HP PRN PO 05/07/24 17:30 05/12/24 18:08 650 MG Enoxaparin Sodium 40 mg DAILY SC 05/09/24 10:00 05/11/24 12:02 40 MG Diphenhydramine HCl 25 mg Q6HP PRN GT 05/09/24 01:15 05/11/24 23:03 25 MG Ipratropium [place] 0.5 mg Q6HR NEB 05/11/24 12:00 05/12/24 21:03 0.5 MG Levalbuterol HCl 0.625 mg Q6HR NEB 05/11/24 12:00 05/12/24 21:02 0.625 MG Levetiracetam 1,500 mg BID GT 05/12/24 22:00 05/13/24 11:04 1,500 MG Levothyroxine Sodium 25 mcg QAM@0600 GT 05/13/24 06:00 05/13/24 05:22 25 MCG Levothyroxine Sodium 137 mcg QAM@0600 GT 05/13/24 06:00 05/13/24 05:22 112 MCG Lorazepam 2 mg Q8HPRN PRN IV 05/12/24 20:00 Amino Acids 0 ml @ 0 mls/hr PER PHARMACY IV 05/12/24 21:30 Phenobarbital 32.4 mg BID GT 05/12/24 22:00 05/13/24 11:04 32.4 MG Amino Acids 1,000 ml @ 41 mls/hr DAILY@2200 IV 05/12/24 22:00 Diagnostic Test (Pha) 1 strip Q6HR 05/13/24 00:00 05/13/24 05:31 1 STRIP Insulin Human Regular FOLLOW SLIDING SCALE Q6HR SC 05/13/24 00:00 Dextrose 50 ml UD IV 05/12/24 22:00 laboratory and microbiology Laboratory Tests 05/11/24 06:50 Test 05/11/24 06:50 Range/Units Serum Glucose 86 74-106 mg/dL Microbiology Date/Time Source Procedure Growth Status 05/03/24 16:10 Nose MRSA Screen - Final Complete 05/02/24 17:50 Blood Blood Culture - Final NO GROWTH AFTER 5 DAYS OF INCUBATION. Complete 05/02/24 16:20 Voided Urine Urine Culture - Final Complete 05/01/24 23:40 Sputum Gram Stain - Final Complete 05/01/24 23:40 Respiratory Culture - Final Haemophilus parahemolyticus Complete Labs and/or images reviewed: Labs reviewed by me, Image(s) reviewed by me Problem List/Assessment/Plan Problem List/Assessment/Plan NEUROLOGY Altered level of consciousness secondary to sepsis secondary to pneumonia Acute metabolic encephalopathy secondary to hyperammonemia and sepsis Focal seizure disorder Wheelchair-bound Nonverbal Cognitive delay Corpus colostomy 11/[address] completed 05/01, shows mild ventriculomegaly Head CT completed 05/04 shows stable mild ventriculomegaly Continue IV phenobarbital, midazolam IV Keppra change to p.o. 05/07-Phenobarbital change from 32.4 mg TID to b.i.d. Neurology-jarett geraldine consulted, recommended MRI brain which Patient did not tolerate CARDIOVASCULAR Status post cardiac arrest 05/03 Lactic acidosis Pulmonary Edema 05/06-currently on BiPAP RESPIRATORY Septic shock secondary to pneumonia, community-acquired, Gram-positive and negative status post intubation and mechanical ventilation, extubated 05/06 Acute hypoxic respiratory failure secondary to above Acute hypercarbic respiratory failure secondary to above Probable aspiration pneumonia Right-sided traumatic hemothorax status post chest tube placement till 05/12 Atelectasis Respiratory acidosis-resolving Left apical pneumothorax Bronchoscopy completed 05/02 shows right lower lobe atelectasis and R4-R10 mucus plug. Continue nebulized treatment with levalbuterol and ipratropium 05/06, patient is extubated currently on BiPAP. Received racemic epinephrine after extubation. 05/07 - received 2 doses of 20 mg Lasix IV. GI Hyperammonemia Shock liver Status post G-tube as a child Transaminitis Monitor Liver ultrasound unremarkable /KIDNEY Paraphimosis Urology consulted-manual reduction of paraphimosis done tolerated well. ENDO Adrenal insufficiency Hyponatremia/SIADH Hypothyroidism Continue IV levothyroxine 137 mcg and 25 mcg daily Continue hydrocortisone 25 mg q.12 daily, patient takes 10 mg p.o. at home ID Septic shock secondary to pneumonia 05/02 blood culture negative Respiratory culture shows beta-hemolytic group F Streptococcus Urine culture negative Discontinued IV Zosyn daily starting 05/02 till 05/11 HEM-ONCO LINES Intubation 05/01 Right femoral CVC line 05/01, repositioned 05/07 DRIPS LEVOPHED 00 FENTANYL 0 VERSED 0 NUTRITION: Jevity 1.2 DIMPLE 30 mL/hour DVT: Lovenox 40 mg sc daily Last bowel movement: 05/05 End of note Goals of care/advance care planning; FULL CODE; discussed on for 24 minutes. PUD prophylaxis: Continue pantoprazole 40 mg daily IV DVT prophylaxis: Continue enoxaparin 40 mg daily SC Plan discussed with patient's aunt at bedside in which all questions have been answered Case discussed with Dr. Vicente. Extubated 05/08. Discharge to home Plan discussed with: Patient, Other (aunt at the bedside) My Orders My Orders Orders - ALI,TOMMY RESIDENT Procedure Category Date Status Time Chest Xray 1 View XY 05/12/24 Resulted 14:26 Chest Xray 1 View XY 05/13/24 Resulted 04:00 Levetiracetam Oral PHA 05/12/24 In Process Solution (Keppra Oral 22:00 Npo (Nothing By DIET 05/12/24 Transmitted Mouth) Diet Dinner Dietary Evaluation Review Comments: 1. Recommend Jevity 1.2 @30ml/hr providing 40g protein, 864ckal which satifies his needs at 60% protein and 77% energy. 2. If pt is off vent, advance diet to pureed diet. 3. If blood glucose elevated, switch TF to Glucerna 1.2 30ml/hr (43gProtein 864 kcal), 4. If blood glucose elevated, advance diet to CCHO-60 pureed diet. Expected Outcomes/Goals: Meet 75% of his needs, graudla weight loss.Advance to pureed diet. TOMMY RENEE RESIDENT May 13, 2024 11:28
[2024-05-13 13:00] VITALS: BP 131/81; PULSE 96; RESP 17; TEMP 100; O2SAT 94
--- NOTE | 2024-05-13 14:28 | ECG ---
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
[2024-05-13 14:50] VITALS: BP 94/75; PULSE 0; RESP 0; TEMP 37.8
== END 2024-05-13 15:25 | disposition home or self-care (01) | DRG 720 ==
LOC: ER 20:37 → OVERFLOW 23:18 → ICU WEST 23:44 → TELE-CENTR 05-10 12:00
PROVIDERS: ADMIT Internal Medicine; ATTEND Emergency Medicine
PROC: 5A1955Z Respiratory Ventilation, Greater than 96 Consecutive Hours (ICD-10-PCS; principal; 2024-05-01)
PROC: 0BH17EZ Insertion of Endotracheal Airway into Trachea, Via Natural or Artificial Opening (ICD-10-PCS; 2024-05-01)
PROC: 06HY33Z Insertion of Infusion Device into Lower Vein, Percutaneous Approach (ICD-10-PCS; 2024-05-01)
PROC: 5A12012 Performance of Cardiac Output, Single, Manual (ICD-10-PCS; 2024-05-02)
PROC: 0B968ZZ Drainage of Right Lower Lobe Bronchus, Via Natural or Artificial Opening Endoscopic (ICD-10-PCS; 2024-05-02)
PROC: 0BC38ZZ Extirpation of Matter from Right Main Bronchus, Via Natural or Artificial Opening Endoscopic (ICD-10-PCS; 2024-05-02)
PROC: 5A09457 Assistance with Respiratory Ventilation, 24-96 Consecutive Hours, Continuous Positive Airway Pressure (ICD-10-PCS; 2024-05-06)
PROC: 05HA33Z Insertion of Infusion Device into Left Brachial Vein, Percutaneous Approach (ICD-10-PCS; 2024-05-09)
PROC: B54NZZA Ultrasonography of Left Upper Extremity Veins, Guidance (ICD-10-PCS; 2024-05-09)
DX: A41.50 Gram-negative sepsis, unspecified (principal); J96.01 Acute respiratory failure with hypoxia; K72.00 Acute and subacute hepatic failure without coma; I46.9 Cardiac arrest, cause unspecified; J69.0 Pneumonitis due to inhalation of food and vomit; R65.21 Severe sepsis with septic shock; G93.41 Metabolic encephalopathy; G40.901 Epilepsy, unspecified, not intractable, with status epilepticus; E22.2 Syndrome of inappropriate secretion of antidiuretic hormone; Z20.822 Contact with and (suspected) exposure to COVID-19; E87.20 Acidosis, unspecified; J96.02 Acute respiratory failure with hypercapnia; E27.40 Unspecified adrenocortical insufficiency; E03.9 Hypothyroidism, unspecified; S27.1XXA Traumatic hemothorax, initial encounter; X58.XXXA Exposure to other specified factors, initial encounter; G80.9 Cerebral palsy, unspecified; J90 Pleural effusion, not elsewhere classified; J93.83 Other pneumothorax; E72.20 Disorder of urea cycle metabolism, unspecified; J15.69 Pneumonia due to other Gram-negative bacteria; J15.9 Unspecified bacterial pneumonia; N47.2 Paraphimosis; Z93.3 Colostomy status; Z93.1 Gastrostomy status; Z79.899 Other long term (current) drug therapy; Z99.3 Dependence on wheelchair; Y93.89 Activity, other specified; Y92.89 Other specified places as the place of occurrence of the external cause; Y99.8 Other external cause status
CPT/HCPCS: 31500; 36415; 36556; 36600; 70450; 71045; 76705; 80048; 80053; 80184; 80320; 81001; 82140; 82533; 82542; 82805; 82962; 83605; 83735; 84100; 84132; 84439; 84443; 85007; 85025; 85027; 85610; 85730; 87040; 87070; 87077; 87081; 87086; 87205; 87426; 87804; 92610; 93005; 94002; 94003; 94640; 94660; 99291; G0378; J0131; J2003; J2470; J2543; J2704; J3480